=== PATIENT | female | born 1970 | race Caucasian/White ===

== ENCOUNTER 2016-04-05 13:33 | Emergency (ER) | payer OTHER ==
[2016-04-05 14:43] LABS: ABSOLUTE BASOPHIL COUNT 0 /CUMM (0.0-0.2); ABSOLUTE EOSINOPHIL COUNT 0.1 /CUMM (0.0-0.7); ABSOLUTE GRANULOCYTE CT 8.2 /CUMM (1.4-6.5); ABSOLUTE LYMPH COUNT 0.9 /CUMM (1.2-3.4); ABSOLUTE MONOCYTE COUNT 0.3 /CUMM (0.10-0.60); BASOPHIL % 0.2 % (0.0-2.0); EOSINOPHIL % 0.9 % (0-5); GRANULOCYTE % 86.6 % (42.2-75.2); HEMATOCRIT 43.3 % (37-47); MEAN CORPUSCULAR HGB CONC 33.6 G/DL (33.0-37.0); MEAN CORPUSCULAR VOLUME 89.2 FL (81.0-99.0); MEAN PLATELET VOLUME 8.5 FL (7.4-10.4); PLATELET COUNT 241 /CUMM (130-400); RBC DISTRIBUTION WIDTH 14.5 % (11.5-14.5); RED BLOOD CELL CT 4.85 /CUMM (4.20-5.40); WHITE BLOOD CELL COUNT 9.5 /CUMM (4.8-10.8)
--- NOTE | 2016-04-05 15:42 | ED GI/GU/ABDOMINAL COMPLAINT ---
History of Present Illness General Chief Complaint: Abdominal Pain/Flank Pain Stated Complaint: R LOWER ABD PAIN X 4 HOURS Source: patient, old records Exam Limitations: no limitations Vital Signs & Intake/Output Vital Signs & Intake/Output Vital Signs Date Time Temp Pulse Resp B/P Pulse O2 O2 Flow FiO2 Ox Delivery Rate 04/05 1630 98.8 88 18 157/76 96 04/05 1507 98 Room Air 04/05 1355 97.9 87 18 181/130 99 Room Air Allergies Coded Allergies: No Known Allergies (01/17/16) Reconcile Medications Dicyclomine Hydrochloride (Bentyl) 10 MG CAPSULE 1 CAP PO TID PRN PAIN Ondansetron (Zofran Odt) 4 MG TAB.RAPDIS 1 TAB SL TID PRN NAUSEA Oxycodone HCl/Acetaminophen (Percocet 5-325 MG Tablet) 5 MG-325 MG TABLET 1 TAB PO TID PAIN Triage Note: C/O RIGHT SIDE ABDOMINAL PAIN X4 HOURS. +NAUSEA, +VOMITING X3. INCREASED PAIN WITH WALKING. Triage Nurses Notes Reviewed? yes ? n Is pt currently ? No Onset: Abrupt Duration: hour(s): (4), constant Timing: recent history Quality/Severity: mild, moderate, sharpness Severity Numbers: 6 Location: right lower quadrant Radiation: no radiation Activities at Onset: none Prior Abdominal Problems: none No Modifying Factors: none Associated Symptoms: denies HPI: 45-year-old female with history of hypertension cholecystectomy presents complaining of a 4 hour onset right lower quadrant abdominal pain that she awoke him sleep with associated multiple episodes of nausea vomiting and diarrhea. She reports little sick contacts at home with similar symptoms however states that they did not have this abdominal pain. The pain is worse with movement and better at rest she attempted taking ibuprofen without improvement. She denies any black or bloody stools no hematemesis no fever no chills no urinary complaints. Her last menstrual cycle was a few weeks ago normal she denies any vaginal bleeding or discharge Past History Travel History Traveled to [place] past 21 day No Medical History Any Pertinent Medical History? see below for history Cardiovascular: hypertension Surgical History Surgical History: none Psychosocial History What is your primary language Pashto Tobacco Use: Never used ETOH Use: occasional use Illicit Drug Use: denies illicit drug use Family History Hx Contributory? No Review of Systems Review of Systems Constitutional: Reports: see HPI. All Other Systems: Reviewed and Negative Comments Review of systems: See HPI, All other systems negative. Constitutional, no chills no fever, no malaise HEENT: no sore throat no congestion Cardiovascular: No chest pain , no palpitation Skin, no jaundice no rashes, no change in skin Respiratory: No dyspnea no cough no sputum GI: No nausea no vomiting, no diarrhea, no bloating/constipation : No dysuria No hematuria, no frequency, no discharge Muscle skeletal: No joint pain, no back pain, no neck pain, Neurologic: No numbness no headache Psych: No stress Heme/endocrine: No bruising no bleeding Immunology: No lymphadenopathy Physical Exam Physical Exam General Appearance: well developed/nourished, alert, awake Gastrointestinal: soft Comments: Well-developed well-nourished person in no acute distress HEENT: Normal EENT exam; PERRL, EOMI, HEAD is atraumatic. moist mucous membranes. Neck: Supple, normal range of motion Back: Nontender, no CVA tenderness. Full range of motion Cardiovascular: Regular rate and rhythms no murmurs rubs Respiratory: No respiratory distress. Patient speaking in full complete sentences. Breath sounds clear to auscultation bilaterally: NO W/R/R Abdomen: Soft, tender to palpation of the right lower quadrant negative Rovsing' s negative water system operator sign nondistended, no appreciable organomegaly. Normal bowel sounds. No rebound/guarding, Extremity: No edema, full range of motion of extremities, Neuro: Alert oriented x3, motor sensory normal, There were no obvious focal neurologic abnormalities. Skin: No appreciable rash on exposed skin, skin is warm and dry. Psych: Mood and affect is normal, memory and judgment is normal. Core Measures ACS in differential dx? No Severe Sepsis Present: No Septic Shock Present: No Progress Differential Diagnosis: appendicitis, bowel obstruction, colon cancer, ectopic , hepatitis, inflamm bowel dis, intrauterine , kidney stone, ovarian cyst, ovarian torsion, pancreatitis, peptic ulcer, PUD/GERD, perforated viscous, SBO, threatened AB, UTI/pyelo Plan of Care: Orders Procedure Date/time Status Add-on Test (ER Only) 04/05 1540 Active HUMAN BETA HCG SCREEN 04/05 1433 Complete URINALYSIS 04/05 1410 Complete COMPREHENSIVE METABOLIC PANEL 04/05 1410 Complete CBC WITHOUT DIFFERENTIAL 04/05 1410 Complete Current Medications Sig/Erik Start time Last Medication Dose Stop Time Status Admin Morphine Sulfate 2 MG ONCE ONE 04/05 1645 CAN (Morphine) 04/05 1646 Laboratory Tests 04/05/16 1519: Urine Color YEL, Urine Clarity CLEAR, Urine pH 6.0, Ur Specific Blanket >= 1.030 , Urine Protein 30 H, Urine Ketones NEG, Urine Nitrite NEG, Urine Bilirubin NEG , Urine Urobilinogen 0.2, Ur Leukocyte Esterase NEG, Ur Microscopic SEDIMENT EXAMINED, Urine RBC RARE, Urine WBC RARE, Ur Epithelial Cells MOD H, Urine Mucus MOD H, Urine Hemoglobin NEG, Urine Glucose NEG 04/05/16 1433: Anion Gap 15, Estimated GFR > 60, BUN/Creatinine Ratio 28.6 H, Glucose 104 H, Calcium 9.4, Total Bilirubin 0.8, AST 20, ALT 35, Alkaline Phosphatase 100, Total Protein 8.1, Albumin 4.4, Globulin 3.7, Albumin/Globulin Ratio 1.2, Total Beta HCG NEGATIVE, CBC w Diff NO MAN DIFF REQ, RBC 4.85, MCV 89.2, MCH 30.0, RDW 14.5, MPV 8.5, Gran % 86.6 H, Lymphocytes % 9.0 L, Monocytes % 3.3, Eosinophils % 0.9, Basophils % 0.2, Absolute Granulocytes 8.2 H, Absolute Lymphocytes 0.9 L, Absolute Monocytes 0.3, Absolute Eosinophils 0.1, Absolute Basophils 0, PUBS MCHC 33.6 Labs ordered old records reviewed patient medicated Dilaudid 1 mg IV IV fluids CAT scan ordered discussed with her all of her lab results to date. 04/05/2016 5:03:00 PM discussed with the patient leave again all of her lab results CAT scan findings and incidental findings on ct. The patient reports her pain is resolved with the 1 mg of Dilaudid IV fluids are running she is requesting something to drink. Patient is tolerating by mouth challenge discussed the need for bland diet clear liquids advance as tolerated. Prescription for Bentyl Percocet and Zofran were provided advised close follow-up with her primary care tomorrow return anytime sooner if she feels worsening or symptoms or any other concerns. I answer all of her questions. I discussed with the patient at length all of their results, need for close follow up with their primary care physician. This week. I answered all of their questions, they feel comfortable with the plan and follow-up care. I discussed the medications that they will receive with the patient. I gave them signs and symptoms that could indicate an adverse reaction. I have advised them to limit their activities until they can see how they respond to the medication. (IFTIKHAR OWUSU,ALEJANDRO) Diagnostic Imaging: Viewed by Me: CT Scan. Discussed w/RAD: CT Scan. Radiology Impression: PATIENT: ANNEMARIE KEE PRESENT AGE: 45 PATIENT ACCOUNT NO: [id number] : 68 LOCATION: [facility] ORDERING PHYSICIAN: ALEJANDRO OWUSU SERVICE DATE: 04/05/163364 EXAM TYPE: CAT - CT ABD & PELVIS W IV CONTRAST EXAMINATION: CT ABDOMEN AND PELVIS WITH CONTRAST CLINICAL INFORMATION: Right lower quadrant pain with nausea, vomiting and diarrhea. Evaluate for appendicitis. COMPARISON: Abdominal ultrasound 2015 TECHNIQUE: Multidetector volumetric imaging was performed of the abdomen and pelvis before and after the IV administration of 95 mL of Optiray 320 intravenous contrast. Coronal and sagittal reformatted images were provided. DLP : 1634.67 mGy-cm. FINDINGS: LUNG BASES: The visualized lung bases are clear. LIVER, GALLBLADDER, AND BILIARY TREE: The liver is normal in size, shape, and attenuation. There is a 1.8 cm hypodensity within the left hepatic lobe (image 23, series 2) which is indeterminate. It is grossly unchanged in size and compared to the prior ultrasound. No other hepatic lesions are identified. No biliary ductal dilatation is present. The patient is status post cholecystectomy. PANCREAS: Unremarkable. SPLEEN: Unremarkable. ADRENAL GLANDS: Unremarkable. KIDNEYS AND URETERS: The kidneys are normal in size, shape, and attenuation. A subcentimeter hypodensity is noted within the right upper pole, too small to characterize. There is a 6 mm nonobstructing calculus within the right upper pole (image 39, series 2). No ureteral calculi identified. A 1.2 cm hypoattenuating lesion is seen within the anterior left mid to lower pole. This does not demonstrate attenuation values of simple fluid. The lesion is indeterminate but may represent hyperdense cyst. Further evaluation can be obtained with ultrasound. There is a 4 mm nonobstructing calculus within the left upper pole (image 36, series 2). No ureteral calculi are identified. No hydronephrosis or hydroureter. No significant perinephric stranding. BLADDER: Underdistended. GASTROINTESTINAL TRACT: There is no bowel obstruction, free intraperitoneal air or fluid. What appears to be the appendix (image 58, series 602) is within normal limits. No inflammatory changes are identified within the right lower quadrant. Nondilated fluid-filled loops of small bowel are noted throughout the abdomen without associated bowel wall thickening. There is descending and sigmoid colon diverticulosis without CT evidence of acute diverticulitis. ABDOMINAL WALL: No significant hernia is appreciated. LYMPH NODES: No mesenteric, retroperitoneal or pelvic lymphadenopathy. VASCULAR: Nonaneurysmal abdominal aorta. Patent portal and renal veins. PELVIC VISCERA: Uterus is retroverted. Probable small right adnexal cyst measuring 2.7 x 1.5 cm (image 82, series 2). OSSEOUS STRUCTURES: There are no aggressive osseous lesions. Mild degenerative changes are seen within the spine and sacroiliac joints. IMPRESSION: 1. No acute intra-abdominal or pelvic abnormality. 2. Nonobstructing bilateral renal calculi. 3. Diverticulosis without CT evidence of acute diverticulitis. 4. Indeterminate hypodensity within the left hepatic lobe is grossly stable in size compared to the prior ultrasound. The ultrasound imaging suggests that this lesion may represent hemangioma. Confirmation could be obtained with dedicated hepatic mass protocol MRI. 5. Indeterminate left renal hypodensity, likely representing a cyst. Further evaluation can be obtained with renal ultrasound. 6. Other findings as described. DICTATED BY: WILL CASTRO DO DATE/TIME DICTATED:04/05/161626 DEPARTMENT CHAIRPERSON:PIPER DATE/TIME TRANSCRIBED:04/05/161626 CONFIDENTIAL, DO NOT COPY WITHOUT APPROPRIATE AUTHORIZATION. <Electronically signed in Other Vendor System> SIGNED BY: WILL CASTRO DO 04/05/16 1653 Initial ED EKG: none Departure Departure Time of Disposition: 1706 Disposition: HOME OR SELF CARE Condition: Stable Clinical Impression Primary Impression: Abdominal pain Secondary Impressions: Diverticulosis, Kidney stone, Liver hemangioma, Renal cyst Referrals: BRAYDEN MARIA MD (PCP/Family) Additional Instructions: [place] diet clear liquids advance diet as tolerated. Ondansetron for nausea. Bentyl for abdominal pain. Percocet for breakthrough pain. Use caution as this is a narcotic and may make you drowsy no driving or drinking alcohol while taking. Follow-up with her primary care physician tomorrow. Return immediately if he had worsening of your symptoms fever chills or any other concerns. These Prescriptions were sent to your pharmacy Departure Forms: Customer Survey General Discharge Information Prescriptions: Current Visit Scripts Oxycodone HCl/Acetaminophen (Percocet 5-325 MG Tablet) 1 TAB PO TID #10 TAB Dicyclomine Hydrochloride (Bentyl) 1 CAP PO TID PRN PAIN #12 CAP Ondansetron (Zofran Odt) 1 TAB SL TID PRN NAUSEA #10 TAB ED Attending Observation Initial Observation Note: I have seen and personally examined ANNEMARIE KEE on 04/05/16 at 1714. I agree with the current emergency department documentation. The disposition (admission or discharge) is uncertain at this time, she needs a period of observation for the following reason(s): The ED Nurse caring for this patient has been personally informed as to what the patient is being observed for.
[2016-04-05 16:30] VITALS: BP 157/76
--- NOTE | 2016-04-05 16:53 | CT SCAN REPORT ---
EXAMINATION: CT ABDOMEN AND PELVIS WITH CONTRAST CLINICAL INFORMATION: Right lower quadrant pain with nausea, vomiting and diarrhea. Evaluate for appendicitis. COMPARISON: Abdominal ultrasound 07/18/2015 TECHNIQUE: Multidetector volumetric imaging was performed of the abdomen and pelvis before and after the IV administration of 95 mL of Optiray 320 intravenous contrast. Coronal and sagittal reformatted images were provided. DLP: 1634.67 mGy-cm. FINDINGS: LUNG BASES: The visualized lung bases are clear. LIVER, GALLBLADDER, AND BILIARY TREE: The liver is normal in size, shape, and attenuation. There is a 1.8 cm hypodensity within the left hepatic lobe (image 23, series 2) which is indeterminate. It is grossly unchanged in size and compared to the prior ultrasound. No other hepatic lesions are identified. No biliary ductal dilatation is present. The patient is status post cholecystectomy. PANCREAS: Unremarkable. SPLEEN: Unremarkable. ADRENAL GLANDS: Unremarkable. KIDNEYS AND URETERS: The kidneys are normal in size, shape, and attenuation. A subcentimeter hypodensity is noted within the right upper pole, too small to characterize. There is a 6 mm nonobstructing calculus within the right upper pole (image 39, series 2). No ureteral calculi identified. A 1.2 cm hypoattenuating lesion is seen within the anterior left mid to lower pole. This does not demonstrate attenuation values of simple fluid. The lesion is indeterminate but may represent hyperdense cyst. Further evaluation can be obtained with ultrasound. There is a 4 mm nonobstructing calculus within the left upper pole (image 36, series 2). No ureteral calculi are identified. No hydronephrosis or hydroureter. No significant perinephric stranding. BLADDER: Underdistended. GASTROINTESTINAL TRACT: There is no bowel obstruction, free intraperitoneal air or fluid. What appears to be the appendix (image 58, series 602) is within normal limits. No inflammatory changes are identified within the right lower quadrant. Nondilated fluid-filled loops of small bowel are noted throughout the abdomen without associated bowel wall thickening. There is descending and sigmoid colon diverticulosis without CT evidence of acute diverticulitis. ABDOMINAL WALL: No significant hernia is appreciated. LYMPH NODES: No mesenteric, retroperitoneal or pelvic lymphadenopathy. VASCULAR: Nonaneurysmal abdominal aorta. Patent portal and renal veins. PELVIC VISCERA: Uterus is retroverted. Probable small right adnexal cyst measuring 2.7 x 1.5 cm (image 82, series 2). OSSEOUS STRUCTURES: There are no aggressive osseous lesions. Mild degenerative changes are seen within the spine and sacroiliac joints. IMPRESSION: 1. No acute intra-abdominal or pelvic abnormality. 2. Nonobstructing bilateral renal calculi. 3. Diverticulosis without CT evidence of acute diverticulitis. 4. Indeterminate hypodensity within the left hepatic lobe is grossly stable in size compared to the prior ultrasound. The ultrasound imaging suggests that this lesion may represent hemangioma. Confirmation could be obtained with dedicated hepatic mass protocol MRI. 5. Indeterminate left renal hypodensity, likely representing a cyst. Further evaluation can be obtained with renal ultrasound. 6. Other findings as described.
[2016-04-05] MEDS ORDERED: BENTYL10 M1 PO (17:08)
[2016-04-05] MEDS ORDERED: PERCOCET 5-3251 EACH PO (17:08)
[2016-04-05] MEDS ORDERED: ZOFRAN ODT4 M1 SL (17:08)
[2016-05-07] MEDS ORDERED: PROTONIX40 M3 PO (15:59)
== END 2016-04-05 18:30 ==
LOC: ERH 13:33
PROVIDERS: Emergency Medicine
DX: K57.90 Diverticulosis of intestine, part unspecified, without perforation or abscess without bleeding (principal); N20.0 Calculus of kidney; D18.00 Hemangioma unspecified site; N28.1 Cyst of kidney, acquired
CPT/HCPCS: 74177; 81001; 96374; 96375; 96376; J2405

== ENCOUNTER 2016-04-15 05:44 | Emergency (ER) | payer OTHER ==
[~2016-04-15] VITALS: Ht 170.2 cm; Wt 133.8 kg
[~2016-04-15 05:44] MED LIST: BENTYL10 M1 PO; PERCOCET 5-3251 EACH PO; ZOFRAN ODT4 M1 SL
[2016-04-15] MEDS ORDERED: HYDROCHLOROTHIA25 M1 PO (06:10)
[2016-04-15 09:14] LABS: ABSOLUTE BASOPHIL COUNT 0.1 /CUMM (0.0-0.2); ABSOLUTE EOSINOPHIL COUNT 0 /CUMM (0.0-0.7); ABSOLUTE GRANULOCYTE CT 11.2 /CUMM (1.4-6.5); ABSOLUTE LYMPH COUNT 1.7 /CUMM (1.2-3.4); ABSOLUTE MONOCYTE COUNT 0.5 /CUMM (0.10-0.60); BASOPHIL % 0.5 % (0.0-2.0); EOSINOPHIL % 0.2 % (0-5); HEMATOCRIT 42.6 % (37-47); MEAN CORPUSCULAR HGB 30.1 PG (27.0-31.0); MEAN CORPUSCULAR VOLUME 88.6 FL (81.0-99.0); MEAN PLATELET VOLUME 8.7 FL (7.4-10.4); PLATELET COUNT 284 /CUMM (130-400); RBC DISTRIBUTION WIDTH 14.4 % (11.5-14.5); RED BLOOD CELL CT 4.81 /CUMM (4.20-5.40)
[2016-04-15 09:17] LABS: WHITE BLOOD CELL COUNT 13.5 /CUMM (4.8-10.8)
[2016-04-15 11:12] VITALS: BP 116/57
--- NOTE | 2016-04-15 11:32 | ED GI/GU/ABDOMINAL COMPLAINT ---
History of Present Illness General Chief Complaint: Abdominal Pain/Flank Pain Stated Complaint: PT C/O ABD PAIN. N/V/D SEEN HERE LAST WK FOR SAME Source: patient, family, old records Exam Limitations: no limitations Vital Signs & Intake/Output Vital Signs & Intake/Output Vital Signs Date Time Temp Pulse Resp B/P Pulse O2 O2 Flow FiO2 Ox Delivery Rate 04/15 1112 97.6 79 20 116/57 99 Room Air 04/15 0800 97.5 70 20 122/80 99 Room Air 04/15 0611 97.2 66 18 181/91 100 Room Air Allergies Coded Allergies: No Known Allergies (01/17/16) Reconcile Medications Dicyclomine Hydrochloride (Bentyl) 10 MG CAPSULE 1 CAP PO TID PRN PAIN Hydrochlorothiazide 25 MG TABLET 25 MG PO DAILY HIGH BLOOD PRESSURE (Reported ) Hyoscyamine Sulfate (Levsin-Sl) 0.125 MG TAB.SUBL 1-2 TAB SL Q4P PRN abdominal pain Ondansetron (Zofran Odt) 4 MG TAB.RAPDIS 1 TAB SL TID PRN NAUSEA Ondansetron (Zofran Odt) 4 MG TAB.RAPDIS 1 TAB SL TID PRN nausea Oxycodone HCl/Acetaminophen (Percocet 5-325 MG Tablet) 5 MG-325 MG TABLET 1 TAB PO TID PAIN Tramadol HCl (Ultram) 50 MG TABLET 1-2 TAB PO Q6PRN PRN severe pain Triage Note: PT C/O PERIUMBILICAL PAIN THAT RADIATES DOWN, N/V, DIZZINESS AND CHILLS SINCE SATURDAY. PT REPORTS BEING SEEN HERE FOR THE SAME MORE THEN A WEEK AGO. ABDOMEN SOFT AND TENDER UPON PALPATION. Triage Nurses Notes Reviewed? yes LMP (ages 10-50): unknown ? n Is pt currently ? No Onset: 2 days Duration: day(s):, continues in ED, intermittent Timing: recent history Quality/Severity: aching, cramping, severe, vomiting Location: suprapubic Radiation: back Activities at Onset: none Prior Abdominal Problems: similar symptoms Past Sexual History: Unobtainable at this time Modifying Factors: Improves With: rest. Worsens With: eating, palpation. Associated Symptoms: abdominal pain, loss of appetite, nausea/vomiting HPI: 2 days prior to admission patient was exposed to daughter with nausea vomiting diarrhea that she eventually developed accompanied by intermittent sharp moderate to severe suprapubic pain worse with eating palpation. She denies fever chills chest pain cough shortness of breath headache dysuria rash bleeding. Past History Travel History Traveled to [place] past 21 day No Medical History Any Pertinent Medical History? see below for history Neurological: NONE EENT: NONE Cardiovascular: hypertension Respiratory: NONE Gastrointestinal: NONE Hepatic: NONE Renal: NONE Musculoskeletal: NONE Psychiatric: NONE Endocrine: NONE Surgical History Surgical History: none Psychosocial History What is your primary language Latvian Tobacco Use: Never used Family History Hx Contributory? No Review of Systems Review of Systems Constitutional: Reports: see HPI, malaise. EENTM: Reports: no symptoms. Respiratory: Reports: no symptoms. Cardiovascular: Reports: no symptoms. GI: Reports: see HPI, abdominal pain, nausea, vomiting. Genitourinary: Reports: no symptoms. Musculoskeletal: Reports: no symptoms. Skin: Reports: no symptoms. Neurological/Psychological: Reports: no symptoms. Hematologic/Endocrine: Reports: no symptoms. Immunologic/Allergic: Reports: no symptoms. All Other Systems: Reviewed and Negative Physical Exam Physical Exam General Appearance: well developed/nourished, alert, awake, anxious, moderate distress, obese Head: atraumatic, normal appearance Eyes: Bilateral: normal appearance, PERRL, EOMI, normal inspection. Ears, Nose, Throat, Mouth: hearing grossly normal, dry mucous membranes Neck: normal inspection, supple, full range of motion, normal alignment Respiratory: normal breath sounds, chest non-tender, no respiratory distress, quiet respiration, lungs clear Cardiovascular: regular rate/rhythm, normal peripheral pulses, norml femoral pulses equa Peripheral Pulses: 4+ carotid (R), 4+ carotid (L) Gastrointestinal: normal bowel sounds, soft, non-tender, no organomegaly Back: normal inspection, normal range of motion Extremities: normal range of motion, no ligament instability Neurologic/Psych: no motor/sensory deficits, awake, alert, oriented x 3, normal gait, normal mood/affect, 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 No Severe Sepsis Present: No Septic Shock Present: No Progress Differential Diagnosis: appendicitis, biliary colic, diverticulitis, kidney stone, UTI/pyelo Plan of Care: Orders Procedure Date/time Status URINE 04/15 0841 Complete URINALYSIS 01/22 0841 Complete LIPASE 04/15 840 Complete COMPREHENSIVE METABOLIC PANEL 04/15 840 Complete CBC WITHOUT DIFFERENTIAL 04/15 840 Complete Laboratory Tests 04/15/16 0903: Urinalysis HEAVY H, Urine Color YEL, Urine Clarity CLDY H, Urine pH 5.5, Ur Specific [place] >= 1.030, Urine Protein TRACE H, Urine Ketones TRACE H, Urine Nitrite NEG, Urine Bilirubin NEG, Urine Urobilinogen 0.2, Ur Leukocyte Esterase NEG, Ur Microscopic SEDIMENT EXAMINED, Urine RBC RARE, Urine WBC RARE, Ur Epithelial Cells FEW, Urine Hemoglobin MOD H, Urine Glucose NEG, Urine Test NEGATIVE 04/15/16 0852: Anion Gap 13, Estimated GFR > 60, BUN/Creatinine Ratio 35.0 H, Glucose 150 H, Calcium 9.8, Total Bilirubin 0.8, AST 18, ALT 35, Alkaline Phosphatase 121, Total Protein 8.4 H, Albumin 4.6, Globulin 3.8, Albumin/Globulin Ratio 1.2, Lipase 101, CBC w Diff NO MAN DIFF REQ, RBC 4.81, MCV 88.6, MCH 30.1, RDW 14.4, MPV 8.7, Gran % 83.0 H, Lymphocytes % 12.3 L, Monocytes % 4.0, Eosinophils % 0.2, Basophils % 0.5, Absolute Granulocytes 11.2 H, Absolute Lymphocytes 1.7, Absolute Monocytes 0.5, Absolute Eosinophils 0, Absolute Basophils 0.1, PUBS MCHC 34.0 Diagnostic Imaging: Viewed by Me: Ultrasound. Discussed w/RAD: Ultrasound. Radiology Impression: 1. Nonobstructing upper pole left renal calculus, similar to prior CT scan. 2. Mid right renal calcification seen on recent CT scan are not appreciated by ultrasound. 3. Mid left renal low-attenuation mass and upper pole right renal mass seen on CT scan are not appreciated on this ultrasound and remain incompletely characterized. Depending on clinical circumstances, short interval (3-6 months) follow-up scan to document stability of these findings versus further characterization with dedicated renal MRI scan with and without contrast is recommended. 4. Duplicated left renal collecting system. Initial ED EKG: none Departure Departure Time of Disposition: 1313 Disposition: HOME OR SELF CARE Condition: Stable Clinical Impression Primary Impression: Nausea and vomiting in adult Secondary Impressions: Abdominal pain Qualifiers: Abdominal location: lower abdomen, unspecified Qualified Code: R10.30 - Lower abdominal pain, unspecified Referrals: CANDACE SEAMAN,BRAYDEN (PCP/Family) Additional Instructions: Clear liquids in small amounts for 12-24 hours until better Departure Forms: Customer Survey General Discharge Information Prescriptions: Current Visit Scripts Ondansetron (Zofran Odt) 1 TAB SL TID PRN nausea #15 TAB Hyoscyamine Sulfate (Levsin-Sl) 1-2 TAB SL Q4P PRN abdominal pain #30 TAB Tramadol HCl (Ultram) 1-2 TAB PO Q6PRN PRN severe pain #30 TAB
--- NOTE | 2016-04-15 12:24 | ULTRASOUND REPORT ---
EXAMINATION: US RETROPERITONEAL COMPLETE (RENAL) CLINICAL INFORMATION: Nausea and vomiting. Suprapubic and back pain. Presumptive diagnosis of renal colic. COMPARISON: CT scan of the abdomen and pelvis dated 04/05/2016. TECHNIQUE: Real-time imaging of the kidneys and bladder. FINDINGS: RIGHT KIDNEY: 9.0 x 4.9 x 5.1 cm (SAG x AP x TRV). The kidney is normal in size, contour, and echogenicity. The mid right renal calcification and the upper pole right renal low-attenuation mass seen on recent CT scan is not appreciated by ultrasound. Renal cortical thickness is normal. No focal parenchymal lesions. No hydronephrosis. LEFT KIDNEY: 12.6 x 5.5 x 5.3 cm (SAG x AP x TRV). The kidney is asymmetrically larger compared to the right kidney given duplication of the renal collecting system. Normal renal cortical echogenicity. Renal cortical thickness is normal. As seen on the CT scan, there is a 0.5 x 0.3 x 0.5 cm cm echogenic focus in the upper pole of the left kidney, consistent with a small kidney stone. No focal parenchymal lesions. The mid left renal low-attenuation mass seen on CT scan is not appreciated on this ultrasound. No hydronephrosis. BLADDER: Partially distended and unremarkable. IMPRESSION: 1. Nonobstructing upper pole left renal calculus, similar to prior CT scan. 2. Mid right renal calcification seen on recent CT scan are not appreciated by ultrasound. 3. Mid left renal low-attenuation mass and upper pole right renal mass seen on CT scan are not appreciated on this ultrasound and remain incompletely characterized. Depending on clinical circumstances, short interval (3-6 months) follow-up scan to document stability of these findings versus further characterization with dedicated renal MRI scan with and without contrast is recommended. 4. Duplicated left renal collecting system.
[2016-04-15] MEDS ORDERED: ULTRAM50 M1 PO (13:17)
[2016-04-15] MEDS ORDERED: ZOFRAN ODT4 M1 SL (13:17)
[2016-04-15] MEDS ORDERED: LEVSIN-SL0.125 MG SL (13:17)
[2016-05-07] MEDS ORDERED: PROTONIX40 M3 PO (15:59)
== END 2016-04-15 13:29 ==
LOC: ERH 05:44
PROVIDERS: Emergency Medicine
DX: R11.2 Nausea with vomiting, unspecified (principal); R10.30 Lower abdominal pain, unspecified
CPT/HCPCS: 76775; 81001; 81025; 96361; 96372; 96374; 96375; J1885; J2405; J2765

== ENCOUNTER 2016-05-16 03:12 | Inpatient (IN) | payer OTHER ==
[~2016-05-16] VITALS: Ht 170.2 cm; Wt 122.5 kg
[~2016-05-16 03:12] MED LIST changes: +HYDROCHLOROTHIA25 M1 PO; +LEVSIN-SL0.125 MG SL; +PROTONIX40 M3 PO; +ULTRAM50 M1 PO
--- NOTE | 2016-05-16 08:09 | Admission Core Measures ---
Admission Lab Results I reviewed the following labs: Laboratory Tests 05/16 742 Chemistry Total Beta HCG Pending Urines Urine Test Cancelled Admission Meds I reviewed the following Meds: Current Medications Sig/Erik Start time Last Medication Dose Stop Time Status Admin Cefazolin Sodium 3,000 MG ONCE 05/16 NR (Kefzol-Ancef Inj) 05/16 2358 Heparin Sodium 5,000 UNIT ONCE 05/16 NR (Porcine) 05/16 2358 Acute Coronary Syndrome Inclusion Criteria ACS Diagnosis No Inpatient Core Measures LDL Reminder: If No, please order W/I first 24hr of stay Congestive Heart Failure Inclusion Criteria CHF Diagnosis No Cerebrovascular accident Inclusion Criteria CVA/TIA Diagnosis No Inpatient Core Measures Bedside Swallow Eval Reminder: If BSE failed, place ST order Antithrombotic Reminder: Order Antithrombotic Medication by end of day 2 Antithrombotic Reminder: Document Reason Antithrombotic Not ordered by end of day 2 AFIB/Flutter Reminder: If Present, add to problem list AFIB/Flutter Reminder: Order Anticoag Medication for pts with AFIB/Flutter Atherosclerosis Reminder: If Present, add to problem list LDL Reminder: If No, please order W/I first 24hr of stay PT Order Reminder: If No, please order Venous thromboembolism Inpatient Core Measures VTE Risk Factors: Age > 40, Obesity, Surgery VTE Prophylaxis Ordered Inpt Mech & Pharm No Mech VTE prophylaxis d/t No contraindications No VTE Pharm Prophylaxis d/t No contraindications Inclusion Criteria - Per Current guidelines, there needs to be overlap - treatment for the first 5 days of Warfarin therapy. - Parenteral Anticoagulation (IV or SC) needs to be - given along with Warfarin therapy. VTE Diagnosis No VTE Type NONE VTE Confirmed by (Test) NONE Problem List As ranked by this Provider includes Assessment & Plan 1. Gastric bypass status for obesity 2. Morbid obesity 3. GERD (gastroesophageal reflux disease) 4. Hypertension HOME MEDS Home Med List Hydrochlorothiazide 25 MG TABLET 25 MG PO DAILY HIGH BLOOD PRESSURE (Reported ) Pantoprazole Sodium (Protonix) 40 MG TABLET.DR 1 TAB PO DAILY GERD (Reported)
--- NOTE | 2016-05-16 12:17 | Operative Report ---
Operative/Inv Procedure Report Surgery Date: 05/16/16 Name of Procedure: Laparoscopic Gastric Bypass, Laparoscopic Hiatal hernia repair Pre-Operative Diagnosis: Morbid Obesity BMI 45, HTN, GERD, Hiatal Hernia Post-Operative Diagnosis: Same Estimated Blood Loss: less than 50ml Surgeon/Cardiac Cath Tech: LORNE FRANKLIN DO Anesthesia: general endotracheal tube IV Fluids: 1800 cc Drains: 10 Fr RUQ LÁZARO Drain Specimens: None Complications: none Condition: Stable Operative Indication: This is a 45-year-old female who presented to the office for workup for bariatric surgery. After appropriate workup was completed we discussed with the patient the band, the sleeve, and the gastric bypass. The patient chose to undergo a gastric bypass. All risks including but not limited to bleeding, infection, leak, stricture, injury to surrounding bowel/esophagus/stomach/liver/ spleen, marginal ulcer, malabsorption/malnutrition, dumping syndrome, internal hernia/small bowel obstruction, DVT/PE, and mortality of 03/999 patients were discussed in detail. The patient understood everything and decided to proceed. Operative/Procedure Note Note: The patient was brought to the operating room and placed on the table in supine position. Venodyne stockings were placed and adequate general endotracheal anesthesia was obtained. The patient was prepped and draped in standard surgical fashion. Began the procedure by making a 2 cm transverse incision supraumbilically and slightly to the left of the midline. Then using a 12 mm clear Visiport and a 10 mm 0 laparoscope the abdominal cavity was accessed. Great care was taken to go through the anterior rectus sheath, the posterior rectus sheath, and through the peritoneum. Once we entered the peritoneum the abdominal cavity was insufflated to 15 mmHg. Upon initial examination no obvious gross pathology was seen. Accessory trocars were placed, 5 mm in the epigastrium for the Denise liver retractor. The liver retractor was inserted and the liver was retracted anteriorly exposing the hiatus, a hiatal hernia was seen. 5 mm ports were placed in the right and left upper quadrant, 5 mm left lateral port, and a 12 mm right lateral port. Began the procedure by mobilizing the angle of His and the left calvin of the diaphragm. The stomach was retracted towards the feet and the peritoneum was lysed until the left calvin was clearly visualized. A hernia sac was identified and was dissected away from the left calvin exposing the hiatal hernia, there was a sliding component to it. We then brought our attention to the lesser curvature, and at the second vessel will began to accessing the retrogastric space. Was done using Harmonic scalpel maintaining hemostasis. Once the retrogastric space was accessed we began creating our pouch using 60 mm purple staple load 3 and 45 mm load x 1. The pouch was created around an Nancy tube. Once the pouch was completely disconnected from the gastric remnant we examined the staple lines, some bleeding was noted and that was controlled using endoclips. Pars flaccida was then opened to the right calvin and once again the hernia wac was identified and reduced. The esophagus was circumferentially dissected out of the chest until it was in the abdominal cavity for 2-3 cm. The esophagus was retracted anteriorly and the hiatus was closed using 2-0 Ticron suture. At the completion it was adequately closed and there was ample room for the esophagus. We then brought our attention to the small bowel, the omentum was retracted above the transverse colon and the ligament of Treitz was identified. The small bowel was run 50 cm and divided using 60 mm crow staple load. 2 clips were placed on the proximal staple line which was the biliopancreatic limb. That limb was run to the ligament of Treitz to assure that that was the blind limb. Following this the omentum was divided using Harmonic scalpel. After the omentum was divided the small bowel was coming up to the gastric pouch with no tension. At that point an enterotomy was made 5 cm from the prior divided distal staple line, longterm between the mesenteric and antimesenteric part. A gastrotomy was made anterior to the staple line. A side to side gastrojejunostomy was created using 45 mm purple staple load approximately 3-3-1/2 cm in diameter. The Nancy tube was passed through the common enterotomy, and the common enterotomy was closed using 2-0 Vicryl suture in a running fashion double layer. Following this the small bowel was clamped off distal to the anastomosis, and we preformed an air and a methylene blue leak test. No obvious leak was noted. All the methylene blue was suctioned out. The small bowel was then run 120 cm and an enterotomy was made on the antimesenteric side. Another enterotomy was made on the antimesenteric side of the biliopancreatic limb. A side to side functional end end jejunojejunostomy was created using 60 mm crow staple load. The common enterotomy was closed using a 60 mm crow staple load. Some bleeding was noted from the staple line and that was controlled using endoclips as well. The mesenteric defect was closed using 2-0 Tycron suture in a running fashion. At that point we examined both anastomoses no obvious bleeding was noted and both appeared intact. 2-0 Vicryl was placed at the distal angle of the gastrojejunostomy to take some tension off the anastomosis. A 10 Faroese LÁZARO drain was placed through the right upper quadrant incision under the liver and over the spleen. All ports were removed under direct visualization, no obvious bleeding was noted. Skin was closed using 4-0 Monocryl. Steri-Strips and dressings were placed. The patient was successfully extubated and transferred to the recovery room in stable condition. The patient tolerated the procedure well with no complications. Findings: 3 cm sliding hiatal hernia, 120 cm alimentary limb CC: CANDACE SEAMAN,BRAYDEN
--- NOTE | 2016-05-16 14:15 | NUR ---
NSG NOTE: PATIENT ARRIVED AT 1415 VIA BED ACCOMPANIED BY BECKIE RN FROM PACU; PATIENT ALERT/DROWSY/AROUSABLE AT THIS TIME; VSS (SEE INTERVENTION); 2L NC (WILL TITRATE); IST PROVIDED BY THIS RN AND EDUCATED PATIENT; IVF RUNNING PER ORDER; ALPS ON; PATIENT STATES PAIN 3/10; ORIENTED TO ROOM; CALL ALMAGUER IN REACH; WILL CONT TO MONITOR
[2016-05-16 14:27] VITALS: BP 132/60
[2016-05-16 14:30] VITALS: BP 132/60
--- NOTE | 2016-05-16 14:49 | PN- Bariatrics ---
Subjective Subjective: Asking for ice chips. "I feel dry". No nausea. Not yet out of bed. Due to void by 1729. No dizziness. No shortness of breath. Reports incisional discomfort. Objective Vital Signs and I&Os Vital Signs Date Time Temp Pulse Resp B/P Pulse O2 O2 Flow FiO2 Ox Delivery Rate 05/16 1427 97.7 73 16 132/60 96 Nasal 2.0L Cannula Physical Exam: General - alert & oriented x 3. comfortable. no acute distress. Lungs - clear bilaterally. no w/r/r. Cardiac - s1s2. reg. Abdomen - dressings c/d/i. expected incisional tenderness. LÁZARO drain with scant bloody drainage. Extremities - warm bilaterally. no c/c/e. calves soft and nontender b/l. athrombics b/l. Assessment/Plan Assessment/Plan This 45 year old female with hx morbid obesity, htn, gerd, who is POD#0 s/p lap gastric bypass, hiatal hernia repair, JPx1 npo except ice chips until upper gi complete in morning dilaudid / toradol / hycet prn pain control hold hctz. monitor blood pressure due to void later (1729) surya-operative ancefx2 protonix - gi ppx hep sc - dvt ppx lovenox teaching for home oob/ambulation f/u am labs monitor LÁZARO drain will d/w Core Measures/Miscellaneous Venous Thromboembolism VTE Risk Factors: Age > 40, Obesity, Surgery VTE Contraindications: No Contraindications VTE Prophylaxis Ordered Inpt: Mech & Pharm VTE Diagnosis: No VTE Type: NONE VTE Confirmed by (Test): NONE Beta Rhiannon Is Beta Rhiannon a Home Med? No Antibiotics Is Patient on Antibiotics? Yes If Yes: prophylaxis
[2016-05-16] MEDS ORDERED: SIMETHICON40 MG/0.1 PO (15:08)
[2016-05-16] MEDS ORDERED: LOVENOX40 MG/0.1 SC (15:09)
[2016-05-16] MEDS ORDERED: HYDROCODON-ACET15 ML PO (15:09)
--- NOTE | 2016-05-16 15:14 | Patient Discharge Instructions ---
Discharge Instructions General Discharge Information You were seen/treated for: Morbid Obesity BMI 45, HTN, GERD, Hiatal Hernia You had these procedures: Laparoscopic Gastric Bypass, Laparoscopic Hiatal hernia repair Watch for these problems: fever>101.3, increased pain, redness/swelling/drainage No bath, but you may shower: Yes Other wound care: dry guaze dressing change as needed over previous drain site. leave white steri strips in place. Special Instructions: continue lovenox injections daily, as directed Diet Continue normal diet: No Recommended Diet: Bariatric Additional DIET Information: weekly bariatric stage diet advancement as tolerated, as directed Activity Full Activity/No Limits: No Activity Self Limited: Yes Pounds, do NOT lift more than: 10 Additional ACTIVITY Info: no heavy lifting. no strenuous activity. walk frequently. Acute Coronary Syndrome Inclusion Criteria At DC or during hospital stay patient has or had the following: ACS DIAGNOSIS No Discharge Core Measures Meds if any: Prescribed or Continued at Discharge Meds if any: NOT Prescribed or Continued at Discharge Congestive Heart Failure Inclusion Criteria At DC or during hospital stay patient has or had the following: CHF DIAGNOSIS No Discharge Core Measures Meds if any: Prescribed or Continued at Discharge Meds if any: NOT Prescribed or Continued at Discharge Cerebrovascular accident Inclusion Criteria At DC or during hospital stay patient has or had the following: CVA/TIA Diagnosis No Discharge Core Measures Meds if any: Prescribed or Continued at Discharge Meds if any: NOT Prescribed or Continued at Discharge Venous thromboembolism Inclusion Criteria VTE Diagnosis No VTE Type NONE VTE Confirmed by (Test) NONE Discharge Core Measures - Per Current guidelines, there needs to be overlap - treatment for the first 5 days of Warfarin therapy. - If discharged on Warfarin prior to 5 days of - overlap therapy, the patient will need to be - assessed for post discharge needs including - *Post discharge parental anticoagulation - *Warfarin and/or parental anticoagulation education - *Follow up date to check INR post discharge At least 5 days overlap therapy as Inpatient No Meds if any: Prescribed or Continued at Discharge Note: Overlap Therapy is Warfarin and Anticoagulant Meds if any: NOT Prescribed or Continued at Discharge
--- NOTE | 2016-05-16 15:18 | Surg Short-stay <48hrs Dis Sum ---
Visit Information Visit Dates Admission Date: 05/16/16 Discharge Date: 05/18/16 Surgical Short Stay DC Summary Admission Diagnosis: Morbid Obesity BMI 45, HTN, GERD, Hiatal Hernia Final Diagnosis: same Procedure(s): Laparoscopic Gastric Bypass, Laparoscopic Hiatal hernia repair (05/16/16) Summary/Significant Findings: Electively schedule laparoscopic gastric bypass and hiatal hernia on 05/16/16. Routine post-operative course, including upper gi study on post-op day#1 morning to r/o leak. Stage 1 bariatric diet initiated follow review of the upper gi study. LÁZARO drain monitored during hospitalization, and removed prior to her discharge to home. Her hydrochlorothiazide was held post-operatively and her blood pressure monitored. Lovenox teaching done for continued home prophylaxis ( prescription given pre-op). Discharge to home post-op day#2 after LÁZARO drain removed. Condition at Discharge: stable Discharge Disposition: home or self care Discharge instructions provided to patient/family: Yes Post discharge follow-up plan: call to schedule one week follow up visit if not previously scheduled specific discharge instructions given to her at the time of her discharge to home
[2016-05-16 21:22] VITALS: BP 170/80
[2016-05-16 23:50] VITALS: BP 160/64
--- NOTE | 2016-05-17 07:07 | PN- Student ---
GLENROY ASHER 05/17/16 0643: Subjective Subjective: Patient states she did not have a good night. She reports overnight she experienced gas like pain across her lower abdomen in a band like distribution that at its worse is a 9/10. Patient reports she has a low pain tolerance. She further reported having an issue with the IV line and once it was switched she felt the abdominal pain was improved. She reports one episode of vomiting which she said had some blood in it that total might have been about the size of a quarter. She states her pain is well controlled at a 1-2 until just before the 4 hour heriberto at which point it increases up to a 9. She states she does not like the liquid Vicodin so she would prefer to have pain until she is due for Dilauded. Patient also reports she has nausea, but the zofran is relieving it for most of the time. She denies any chest pain, shortness of breath, fever/ chills, headache, bowel movements, dysuria, knee or leg pain. Objective Objective: Vital signs: 23:50 BP: 160/64 Pulse: 69 Resp :18 Temp: 98.7F SpO2: 96 Physical Exam: General: well appearing, in no acute distress. alert and oriented to person place and time. Head: normocephalic, atraumatic Eyes: PERRL, EOMI Cardio: Regular rate and rhythm, clear S1 and S2. No murmurs, rubs or gallops. No JVD. Pulmonary: Cleart to asucultation bilaterally. No rhonchi, wheeze, or rales. Abd: Tympanic to percussion, hypoactive bowel sounds. Tender to palpation at epigastric area and near incision sites. No ecchymosis, erythema or discharge. LÁZARO drain with minimal serosanguinious fluid. Extremities: Full range of motion, non-tender, no edema. Results Results: Laboratory Tests 05/16/16 0743: Total Beta HCG NEGATIVE, Urine Test Cancelled Assessment/Plan Assessment: Pt is a 45 year old female with a history of GERD, hypertension, morbid obeisity , and hiatal hernia who is POD # 1 for a laproscopic gastric bypass and hiatal hernia repair with out a complicated hospital course. Plan: -Continue NPO until GI study is complete. -Pending adequate GI study, initiate step 1 diet. -Continue IV pain meds -Initiate IV toradol for breakthrough pain. -Continue Zofran for nausea. -Encourage out of bed ambulation. -Initiate DVT ppx with lovenox and appropriate training. -Follow up pending am labs. Will discuss the above with PA surgical team. Glenroy OWUSU-S2 NITHIN OWUSU,STACIE 05/17/16 0713: Objective Objective: Abdomen: Softly distended, obese, appropriate incisional tenderness, bowel sounds positive. Port sites are clean, dry, and intact. There is a LÁZARO 1 holding suction with serous sinus drainage in the bulb. Extremities: Bilateral lower extremities are warm without calf tenderness or significant edema. Assessment/Plan Plan: Assessment: 45-year-old female status post laparoscopic gastric bypass with hiatal hernia repair postoperative day #1. The patient is progressing as expected and her nausea is improving. Plan as above, we'll add Toradol when necessary and encouraged patient to ambulate. Advance to a stage I diet if upper GI series is okay.
[2016-05-17 07:55] LABS: ABSOLUTE BASOPHIL COUNT 0 /CUMM (0.0-0.2); ABSOLUTE EOSINOPHIL COUNT 0 /CUMM (0.0-0.7); ABSOLUTE GRANULOCYTE CT 7.6 /CUMM (1.4-6.5); ABSOLUTE MONOCYTE COUNT 0.6 /CUMM (0.10-0.60); BASOPHIL % 0.1 % (0.0-2.0); EOSINOPHIL % 0.1 % (0-5); GRANULOCYTE % 82.5 % (42.2-75.2); MEAN CORPUSCULAR HGB 29.9 PG (27.0-31.0); MEAN CORPUSCULAR HGB CONC 33.5 G/DL (33.0-37.0); MEAN PLATELET VOLUME 9.4 FL (7.4-10.4); PLATELET COUNT 232 /CUMM (130-400); RBC DISTRIBUTION WIDTH 13.6 % (11.5-14.5); RED BLOOD CELL CT 4.27 /CUMM (4.20-5.40); WHITE BLOOD CELL COUNT 9.2 /CUMM (4.8-10.8)
[2016-05-17 08:18] VITALS: BP 162/90
--- NOTE | 2016-05-17 11:48 | RADIOLOGY REPORT ---
EXAMINATION: FLUOROSCOPY UPPER GI WITH GASTROGRAFIN CLINICAL INFORMATION: 1 day status post gastric bypass study. Postoperative evaluation. COMPARISON: The abdomen and pelvis dated 04/05/2016. TECHNIQUE: A limited Gastrografin upper GI study was performed using 30 ml of Gastroview with the patient in the upright and supine position. Multiple spot films were acquired. FINDINGS: The preliminary air pumper view of the abdomen demonstrates a drain and postsurgical max in the epigastric region. Mild gaseous distention of bowel loops is seen. Evaluation of esophageal distensibility and motility is limited, but grossly unremarkable. The GE junction is located below the level of the diaphragm and no GE reflux seen. The remnant gastric pouch is normal with no abnormal distention or contrast leak seen. There is prompt emptying of contrast into the anastamosed small bowel, which is unremarkable in appearance. FLUOROSCOPY TIME: 22 seconds. IMPRESSION: Unremarkable postoperative examination status post gastric bypass surgery. No evidence of contrast leak seen.
[2016-05-17 16:12] VITALS: BP 120/62
[2016-05-17 23:49] VITALS: BP 120/64
--- NOTE | 2016-05-18 06:44 | PN- Student ---
ITZ CUEVA 05/18/16 0634: Subjective Subjective: Patient reports no events overnight but states she had severe pain around 3:30am which was relieved with pain medication at 3:45am. She is concerned that there is blood in her urine but states she is on day 6 of her menses. She reports having belching but otherwise no gas. She denies any chest pain, shortness of breath, nausea, vomiting, flatus, bowel movements, fever/chills, headaches, or pain in her calf areas. Objective Objective: Vitals: BP: 120-64 Pulse: 66 Resp: 20 SpO2: 95 RA Temp: 98.2F Physical Exam: General: Pt well appearing resting comfortably. Alert and oriented to person place and time. Head: Normocephalic, atraumatic. Eyes: PERRL, EOMI. Mouth: Moist pink mucous membranes. Cardiac: Regular rate and rhythm, clear S1 and S2. No murmurs rubs or gallops. Pulmonary: Clear to auscultation bilaterally, no wheezes, rhonchi, or rales. Abdomen: Non-distended, tender to palpation and percussion at the epigastric area. Incisions still dressed with no obvious drainage. No ecchymosis present. No masses palpated. LÁZARO drain mostly full with serosanguinous fluid. Extremities: Bilateral lower extremities full range of motion, no calf tenderness, no edema, and 2+ dorsalis pedis pulses. Results Results: Laboratory Tests 05/17/16 0620: Anion Gap 10, Estimated GFR > 60, BUN/Creatinine Ratio 18.3, Magnesium 2.0, CBC w Diff NO MAN DIFF REQ, RBC 4.27, MCV 89.0, MCH 29.9, RDW 13.6, MPV 9.4, Gran % 82.5 H, Lymphocytes % 11.1 L, Monocytes % 6.2, Eosinophils % 0.1, Basophils % 0.1, Absolute Granulocytes 7.6 H, Absolute Lymphocytes 1.0 L, Absolute Monocytes 0.6, Absolute Eosinophils 0, Absolute Basophils 0, PUBS MCHC 33.5 05/16/16 0743: Total Beta HCG NEGATIVE, Urine Test Cancelled Assessment/Plan Assessment: Pt is a 45 year old female with a history of morbid obesity, hiatal hernia, GERD , and hypertension who is POD#2 for a laproscopic hiatal hernia repair and gastric bypass without a complicated hospital course. Plan: -Continue stage 1 diet -Continue toradol for moderate pain prn -Continue dilauded for severe pain prn -Continue enoxaparin for dvt prophylaxis -Encourage out of bed ambulation -Follow up pending am labs Will discuss above with PA surgical team. Itz Cueva PA-S2 GEOFF ALEXANDRA 05/18/16 0705: Assessment/Plan Plan: AGREE WITH ABOVE PA-S NOTE LÁZARO DRAIN REMOVED D/C IV DILAUDID. TRY DILAUDID PILLS (SHE DID NOT TOLERATE HYCET WELL) LOVENOX TEACHING DONE D/C HOME TODAY WILL D/W
[2016-05-18] MEDS ORDERED: DILAUDID2 M1 PO (07:04)
[2016-05-18 08:24] VITALS: BP 122/80
--- NOTE | 2016-05-18 10:35 | NUR ---
LATE ENTRY: PT HAD A SLIGHTLY BLOODY BM. PT'S VSS. LABS WNL. PT IN NO DISTRESS. ASYMPTOMATIC. SURGICAL PA RAQUEL SANDRA NOTIFIED. TO CONT TO MONITOR. STILL TO BE DISCHARGED. PT EDUCATED. WILL CONT TO MONITOR.
== END 2016-05-18 13:45 | DRG 403 ==
LOC: ENRESERVDT → ENRESERVTM → ENPENDDIS 03:12 → 2NB 03:12 → SDA 03:12 → 2NB 14:13
PROVIDERS: Physician Assistant; ADMIT Surgery
PROC: 0BQR4ZZ (ICD-10-PCS; principal; 2016-05-16)
PROC: 0D164ZA Bypass Stomach to Jejunum, Percutaneous Endoscopic Approach (ICD-10-PCS; principal; 2016-05-16)
PROC: 0BQS4ZZ (ICD-10-PCS; principal; 2016-05-16)
DX: E66.01 Morbid (severe) obesity due to excess calories (principal); Z68.42 Body mass index [BMI] 45.0-49.9, adult; K21.9 Gastro-esophageal reflux disease without esophagitis; K44.9 Diaphragmatic hernia without obstruction or gangrene; I10 Essential (primary) hypertension
CPT/HCPCS: 2NBP; 36415; 74240; 81025; 82436; J0131; J0690; J1100; J1170; J1630; J1644; J1650; J1885; J2405; J2765; J7042

== ENCOUNTER 2016-06-19 13:40 | Emergency (ER) | payer OTHER ==
[~2016-06-19] VITALS: Ht 172.7 cm; Wt 115.7 kg
[~2016-06-19 13:40] MED LIST changes: +DILAUDID2 M1 PO; +HYDROCODON-ACET15 ML PO; +LOVENOX40 MG/0.1 SC; +SIMETHICON40 MG/0.1 PO
--- NOTE | 2016-06-19 14:33 | ED GI/GU/ABDOMINAL COMPLAINT ---
History of Present Illness General Chief Complaint: Nausea, Vomiting, Diarrhea Stated Complaint: N/V ABD PAIN S/P GASTRIC BYPASS 5 WEEKS AGO Source: patient, family, old records Exam Limitations: no limitations Vital Signs & Intake/Output Vital Signs & Intake/Output Vital Signs Date Time Temp Pulse Resp B/P Pulse O2 O2 Flow FiO2 Ox Delivery Rate 06/19 1913 98.7 77 18 150/80 100 Room Air 06/19 1747 97.5 66 16 150/76 100 Room Air 06/19 1555 62 16 150/84 99 Room Air 06/19 1525 97.4 63 16 190/74 99 Room Air 06/19 1346 98.0 76 20 99 Room Air Allergies Coded Allergies: No Known Allergies (01/17/16) Reconcile Medications Hydrochlorothiazide 25 MG TABLET 25 MG PO DAILY HIGH BLOOD PRESSURE (Reported ) NOT GIVEN Hydromorphone HCl (Dilaudid) 2 MG TABLET 1 TAB PO BIDP PRN PAIN Multivitamin (Multi-Day Vitamins) 1 EACH TABLET 1 TAB PO DAILY SUPPLEMENT- BARIATRIC (Reported) Ondansetron (Zofran Odt) 4 MG TAB.RAPDIS 1 TAB SL TID PRN NAUSEA Pantoprazole Sodium (Protonix) 40 MG TABLET.DR 1 TAB PO DAILY GERD (Reported) Triage Note: PT PRESENTS TO ER C/O OF ABDOMINAL PAIN AND N/V X3 DAYS. PT STATES SHE IS 5 WEEKS POST GASTRIC BYPASS. PT STATES SHE ALSO HAS MIDSTERNAL CHEST PAIN AND FEELS SOB. PT VERY ANXIOUS AT TRIAGE AND TEARFUL Triage Nurses Notes Reviewed? yes ? n Is pt currently ? No Onset: Gradual Duration: day(s): (3), constant Timing: recent history Quality/Severity: aching, cramping, moderate, sharpness Severity Numbers: 7 Location: epigastric, generalized abdomen Radiation: epigastric Activities at Onset: none Prior Abdominal Problems: none No Modifying Factors: none Associated Symptoms: denies HPI: 46-year-old female presents emergency room for further evaluation complaining of generalized crampy aching throbbing abdominal pain nonradiating for the past 3 days associated with multiple episodes of nausea and vomiting. Patient states that this morning she was feeling anxious and felt short of breath and was complaining of chest pain. She states the chest pain has since resolved however she intermittently feels short of breath still. No cough fever chills hemoptysis. She is not taken anything for her symptoms. Patient is 5 weeks status post gastric bypass by Dr. Landaverde. She denies any change in her bowel movements are last bowel movement was this morning and normal no black or bloody stools (ALEJANDRO ELLINGTON) Past History Travel History Traveled to [place] past 21 day No Medical History Any Pertinent Medical History? see below for history Neurological: NONE EENT: NONE Cardiovascular: hypertension Respiratory: NONE Gastrointestinal: POST OP N/V Hepatic: NONE Renal: NONE Musculoskeletal: NONE Psychiatric: NONE Endocrine: NONE Cancer(s): NONE History of MRSA: No History of VRE: No History of CDIFF: No Influenza Vaccine: 01/24/16 Surgical History Surgical History: cholecystectomy, GASTRIC BYPASS Psychosocial History Who do you live with Daughter Services at Home None What is your primary language Lao Tobacco Use: Never used Family History Hx Contributory? No (ALEJANDRO ELLINGTON) Review of Systems Review of Systems Constitutional: Reports: see HPI. All Other Systems: Reviewed and Negative Comments Review of systems: See HPI, All other systems negative. Constitutional, no chills no fever, no malaise HEENT:no sore throat no congestion, no ear pain Cardiovascular: No chest pain , no palpitation Skin, no jaundice no rashes, no change in skin Respiratory: dyspnea no cough no sputum GI: nausea no vomiting, no diarrhea, : No dysuria Muscle skeletal: No joint pain, no back pain, no neck pain, Neurologic: No numbness no headache Psych: No stress no anxiety no depression,. Heme/endocrine: No bruising no bleeding no polyuria no polydipsia Immunology: No lymphadenopathy, no splenectomy (ALEJANDRO ELLINGTON) Physical Exam Physical Exam General Appearance: well developed/nourished, no apparent distress, alert, awake Gastrointestinal: soft, epigastric pain Comments: Well-developed well-nourished person in no acute distress HEENT: Normal EENT exam; PERRL, EOMI, HEAD is atraumatic. moist mucous membranes. Neck: Supple, normal range of motion Back: Nontender, no CVA tenderness. Full range of motion Cardiovascular: Regular rate and rhythms no murmurs rubs Respiratory: Chest nontender.There were no bony deformities, no asymmetry. No respiratory distress. Patient speaking in full complete sentences. Breath sounds clear to auscultation bilaterally: NO W/R/R Abdomen: Soft, epigastric tenderness to palpation negative Mosley sign nondistended, no appreciable organomegaly. Normal bowel sounds. No rebound/ guarding, No appreciable enlargement of the abdominal aorta, No ascites. Extremity: No edema, full range of motion of extremities Neuro: Alert oriented x3, motor sensory normal, There were no obvious focal neurologic abnormalities. Skin: No appreciable rash on exposed skin, skin is warm and dry. Psych: Mood and affect is normal, memory and judgment is normal. Core Measures ACS in differential dx? Yes Severe Sepsis Present: No Septic Shock Present: No (IFTIKHAR OWUSU,ALEJANDRO) Progress Differential Diagnosis: biliary colic, bowel obstruction, colon cancer, diverticulitis, gastritis, hepatitis, ischemic bowel, inflamm bowel dis, pancreatitis, PUD/GERD, SBO, pe, ami, pericarditis, influenza, electrolyte abnormaity Plan of Care: Orders Procedure Date/time Status Telemetry/Kiln Fireman 06/19 1508 Active Add-on Test (ER Only) 06/19 1458 Active TROPONIN LEVEL 06/19 1441 Complete PROTHROMBIN TIME 06/19 1441 Complete LIPASE 06/19 1441 Complete HUMAN BETA HCG SCREEN 06/19 1441 Complete COMPREHENSIVE METABOLIC PANEL 06/19 1441 Complete CBC WITHOUT DIFFERENTIAL 06/19 1441 Complete AMYLASE 06/19 1441 Complete EKG 06/19 1349 Active Current Medications Sig/Erik Start time Last Medication Dose Stop Time Status Admin Promethazine HCl 50 MG ONCE ONE 06/19 1600 CAN (Phenergen) 06/19 1601 Laboratory Tests 06/19/16 1459: Anion Gap 22 H, Estimated GFR > 60, BUN/Creatinine Ratio 21.7, Glucose 121 H, Calcium 9.8, Total Bilirubin 0.6, AST 19, ALT 39, Alkaline Phosphatase 91, Troponin I < 0.01, Total Protein 8.1, Albumin 4.4, Globulin 3.7, Albumin/ Globulin Ratio 1.2, Amylase 57, Lipase 198, Total Beta HCG NEGATIVE, PT 12.3, INR 1.17, CBC w Diff NO MAN DIFF REQ, RBC 4.96, MCV 88.6, MCH 29.8, RDW 14.6 H, MPV 10.0, Gran % 83.4 H, Lymphocytes % 12.5 L, Monocytes % 3.6, Eosinophils % 0.1, Basophils % 0.4, Absolute Granulocytes 8.1 H, Absolute Lymphocytes 1.2, Absolute Monocytes 0.3, Absolute Eosinophils 0, Absolute Basophils 0, PUBS MCHC 33.7 Labs ordered old records reviewed patient acute Dilaudid 1 mg IV Zofran 4 IV CAT scans ordered case was discussed with Dr. Morales Repeat evaluation patient is resting comfortably however states that her nausea persists pain has improved. I discussed with patient at length all of her lab results pending CAT scan Repeat evaluation patient reports nausea has persisted the Dilaudid had previously helped with her nausea Phenergan was no improvement 06/19/2016 6:51:24 PM I discussed with the patient at length as well as her family her CAT scan findings need for close follow-up with her bariatric surgeon. Prescriptions provided the patient feels comfortable plan she is tolerating by mouth here. Patient attributed her shortness of breath chest pain earlier to her anxiety she has not been hypoxic nor tachycardic here clinically appears well there is no pain with inspiration PATIENT: ANNEMARIE KEE PRESENT AGE: 46 PATIENT ACCOUNT NO: [id number] : 68 LOCATION: [facility] ORDERING PHYSICIAN: ALEJANDRO OWUSU SERVICE DATE: 06/19/165900 EXAM TYPE: CAT - CT ABD & PELVIS W ORAL & IV CO; CTA CHEST-PULMONARY EMBOLISM EXAMINATION: CT ANGIOGRAM OF THE CHEST WITH AND WITHOUT CONTRAST (CT PULMONARY ANGIOGRAM FOR PE) CT ABDOMEN AND PELVIS WITH CONTRAST CLINICAL INFORMATION: Dyspnea. Recent gastric bypass surgery. COMPARISON: CT abdomen and pelvis dated 04/05/2016 TECHNIQUE: Prior to contrast administration, noncontrast localization images were obtained. Subsequently, multidetector volumetric imaging was performed from the thoracic inlet to below the diaphragms following the administration of 95 mL Optiray 300 intravenous contrast. No contrast reaction reported. Sagittal, coronal, and MIP oblique sagittal reformatted images were obtained on the CT workstation, uploaded to PACS, and reviewed. Total exam dose-length product 1684.02 mGy-cm. FINDINGS: QUALITY OF STUDY/CONTRAST BOLUS: Suboptimal PULMONARY ARTERIES: Suboptimal enhancement of the pulmonary arteries with greater contrast in the pulmonary veins. This limits the evaluation of the lobar and segmental pulmonary arteries. No gross evidence of pulmonary embolism in the main pulmonary artery. THORACIC AORTA: No aneurysm or dissection. LUNG: Subpleural nodular opacity measuring approximately 0.9 cm anterior aspect right middle lobe (coronal image 21 and series 2 image 276). Small subpleural nodules also noted in the right lower lobe measuring approximately 0.6 cm (series 2 image 271). Minor subsegmental atelectasis noted in the right lower lobe adjacent to the major fissure (series 2 image 277). PLEURA: No pleural effusion or pneumothorax. MEDIASTINUM: Normal heart size. No pericardial effusion. No hilar or mediastinal lymphadenopathy. No evidence of septal bowing or right heart strain. CHEST WALL/AXILLA: No axillary or internal mammary lymphadenopathy. LIVER, GALLBLADDER AND BILIARY TREE: Low-attenuation hepatic foci are noted in the left hepatic lobe. Subcapsular hypodensity along the falciform ligament segment 4A left hepatic lobe measuring 2 x 1.8 cm (series 5 image 24) may represent transient hepatic attenuation difference. Additional low-attenuation lesion segment 2 left hepatic lobe (series 5 image 22) measuring 1.6 x 1.5 cm. Hounsfield units are compatible with a solid lesion. This has remained stable over the interval. No additional lesions identified. Status post cholecystectomy. Stable minor prominence of the common bile duct measuring approximately 0.7 cm compatible with postcholecystectomy change. Spleen: Unremarkable. Pancreas: Unremarkable. Adrenal glands: Unremarkable. Kidneys: Stable nonobstructing calculus upper pole right kidney measuring approximately 0.6 cm. Previously seen left upper pole calculus is no longer visualized. Duplicated left renal collecting system. Small cortical scar upper pole right kidney noted again. Stable low-attenuation cortical lesion mid left kidney measuring 1.1 cm. Hounsfield units do not reflect simple cyst. Differential possibility includes complex proteinaceous or hemorrhagic cyst. Since the lesion was not visible on ultrasound, further assessment with nonemergent renal MRI may be of value. GI tract: Postoperative gastric bypass changes. Small amount of orally administered contrast is noted in the mid to distal esophagus, gastric pouch as well as the jejunal loops. No gross evidence of extravasation. No evidence of obstruction. Colonic diverticulosis. No evidence of acute diverticulitis. Lymphovascular structures: Unremarkable. Pelvis: Dominant cysts bilateral ovaries/adnexa compatible with physiologic changes in this age group. No abnormal fluid collection or abscess formation. OSSEOUS STRUCTURES: Degenerative changes. No acute osseous abnormality. IMPRESSION: 1. Suboptimal enhancement of the pulmonary arteries limiting their evaluation of acute pulmonary embolism as detailed. 2. Small subpleural nodular opacities noted in the right middle lobe and right lower lobe. These may represent postinflammatory change. These are not well seen on the prior study. These can be monitored with a follow-up CT chest in 6 months. 3. Stable low-attenuation left hepatic lesion. This was felt to represent a hemangioma on ultrasound. 4. Stable right renal calculus. Stable low-attenuation cortical lesion mid left kidney. Left hepatic lesion and left renal lesions can be further assessed with nonemergent follow-up MRI with gadolinium. 5. Status post gastric bypass. No evidence of contrast extravasation. No abnormal fluid collection. VTE: indeterminate due to suboptimal contrast-enhancement. DICTATED BY: VALE FONSECA MD DATE/TIME DICTATED:06/19/161737 MANAGER ENGINE:PIPER DATE/TIME TRANSCRIBED:06/19/161737 CONFIDENTIAL, DO NOT COPY WITHOUT APPROPRIATE AUTHORIZATION. <Electronically signed in Other Vendor System> SIGNED BY: VALE FONSECA MD 06/19/161824 (ALEJANDRO ELLINGTON) Diagnostic Imaging: Viewed by Me: CT Scan. Discussed w/RAD: CT Scan. Initial ED EKG: normal intervals, normal p-waves, normal QRS complex, normal sinus rhythm (70) Prior EKG: unchanged Rhythm Strip: normal sinus rhythm (ALEJANDRO ELLINGTON) Departure Departure Time of Disposition: 1831 Disposition: HOME OR SELF CARE Condition: Stable Clinical Impression Primary Impression: Abdominal pain Referrals: LORNE FRANKLIN DO, MD,BRAYDEN (PCP/Family) Additional Instructions: follow up with dr franklin tomorrow. dilaudid as discussed for breakthrough pain. zofran for nausea. return at anytime sooner with any concerns. these were sent to [facility] Departure Forms: Customer Survey General Discharge Information Prescriptions: Current Visit Scripts Hydromorphone HCl (Dilaudid) 1 TAB PO BIDP PRN PAIN #8 TAB Ondansetron (Zofran Odt) 1 TAB SL TID PRN NAUSEA #10 TAB (ALEJANDRO ELLINGTON) PA/DRY BOX TENDER Co-Sign Statement Statement: ED Attending supervision documentation- [] I saw and evaluated the patient. I have also reviewed all the pertinent lab results and diagnostic results. I agree with the findings and the plan of care as documented in the PA's/DRY BOX TENDER's documentation. [x] I have reviewed the ED Record and agree with the PA's/DRY BOX TENDER's documentation. [] Additions or exceptions (if any) to the PAs/DRY BOX TENDER's note and plan are summarized below: [] (SERJIO MORALES DO)
[2016-06-19 15:09] LABS: ABSOLUTE EOSINOPHIL COUNT 0 /CUMM (0.0-0.7); ABSOLUTE LYMPH COUNT 1.2 /CUMM (1.2-3.4); ABSOLUTE MONOCYTE COUNT 0.3 /CUMM (0.10-0.60); EOSINOPHIL % 0.1 % (0-5); MEAN CORPUSCULAR VOLUME 88.6 FL (81.0-99.0)
[2016-06-19 15:13] LABS: ABSOLUTE BASOPHIL COUNT 0 /CUMM (0.0-0.2); ABSOLUTE GRANULOCYTE CT 8.1 /CUMM (1.4-6.5); BASOPHIL % 0.4 % (0.0-2.0); HEMATOCRIT 43.9 % (37-47); MEAN CORPUSCULAR HGB 29.8 PG (27.0-31.0); MEAN CORPUSCULAR HGB CONC 33.7 G/DL (33.0-37.0); PLATELET COUNT 254 /CUMM (130-400); RBC DISTRIBUTION WIDTH 14.6 % (11.5-14.5); RED BLOOD CELL CT 4.96 /CUMM (4.20-5.40)
[2016-06-19 15:16] LABS: GRANULOCYTE % 83.4 % (42.2-75.2); PT 12.3 SEC (9.4-12.5); WHITE BLOOD CELL COUNT 9.7 /CUMM (4.8-10.8)
[2016-06-19] MEDS ORDERED: MULTI-DAY VITA1 EACH PO (15:25)
--- NOTE | 2016-06-19 18:25 | CT SCAN REPORT ---
EXAMINATION: CT ANGIOGRAM OF THE CHEST WITH AND WITHOUT CONTRAST (CT PULMONARY ANGIOGRAM FOR PE) CT ABDOMEN AND PELVIS WITH CONTRAST CLINICAL INFORMATION: Dyspnea. Recent gastric bypass surgery. COMPARISON: CT abdomen and pelvis dated 04/05/2016 TECHNIQUE: Prior to contrast administration, noncontrast localization images were obtained. Subsequently, multidetector volumetric imaging was performed from the thoracic inlet to below the diaphragms following the administration of 95 mL Optiray 300 intravenous contrast. No contrast reaction reported. Sagittal, coronal, and MIP oblique sagittal reformatted images were obtained on the CT workstation, uploaded to PACS, and reviewed. Total exam dose-length product 1684.02 mGy-cm. FINDINGS: QUALITY OF STUDY/CONTRAST BOLUS: Suboptimal PULMONARY ARTERIES: Suboptimal enhancement of the pulmonary arteries with greater contrast in the pulmonary veins. This limits the evaluation of the lobar and segmental pulmonary arteries. No gross evidence of pulmonary embolism in the main pulmonary artery. THORACIC AORTA: No aneurysm or dissection. LUNG: Subpleural nodular opacity measuring approximately 0.9 cm anterior aspect right middle lobe (coronal image 21 and series 2 image 276). Small subpleural nodules also noted in the right lower lobe measuring approximately 0.6 cm (series 2 image 271). Minor subsegmental atelectasis noted in the right lower lobe adjacent to the major fissure (series 2 image 277). PLEURA: No pleural effusion or pneumothorax. MEDIASTINUM: Normal heart size. No pericardial effusion. No hilar or mediastinal lymphadenopathy. No evidence of septal bowing or right heart strain. CHEST WALL/AXILLA: No axillary or internal mammary lymphadenopathy. LIVER, GALLBLADDER AND BILIARY TREE: Low-attenuation hepatic foci are noted in the left hepatic lobe. Subcapsular hypodensity along the falciform ligament segment 4A left hepatic lobe measuring 2 x 1.8 cm (series 5 image 24) may represent transient hepatic attenuation difference. Additional low-attenuation lesion segment 2 left hepatic lobe (series 5 image 22) measuring 1.6 x 1.5 cm. Hounsfield units are compatible with a solid lesion. This has remained stable over the interval. No additional lesions identified. Status post cholecystectomy. Stable minor prominence of the common bile duct measuring approximately 0.7 cm compatible with postcholecystectomy change. Spleen: Unremarkable. Pancreas: Unremarkable. Adrenal glands: Unremarkable. Kidneys: Stable nonobstructing calculus upper pole right kidney measuring approximately 0.6 cm. Previously seen left upper pole calculus is no longer visualized. Duplicated left renal collecting system. Small cortical scar upper pole right kidney noted again. Stable low-attenuation cortical lesion mid left kidney measuring 1.1 cm. Hounsfield units do not reflect simple cyst. Differential possibility includes complex proteinaceous or hemorrhagic cyst. Since the lesion was not visible on ultrasound, further assessment with nonemergent renal MRI may be of value. GI tract: Postoperative gastric bypass changes. Small amount of orally administered contrast is noted in the mid to distal esophagus, gastric pouch as well as the jejunal loops. No gross evidence of extravasation. No evidence of obstruction. Colonic diverticulosis. No evidence of acute diverticulitis. Lymphovascular structures: Unremarkable. Pelvis: Dominant cysts bilateral ovaries/adnexa compatible with physiologic changes in this age group. No abnormal fluid collection or abscess formation. OSSEOUS STRUCTURES: Degenerative changes. No acute osseous abnormality. IMPRESSION: 1. Suboptimal enhancement of the pulmonary arteries limiting their evaluation of acute pulmonary embolism as detailed. 2. Small subpleural nodular opacities noted in the right middle lobe and right lower lobe. These may represent postinflammatory change. These are not well seen on the prior study. These can be monitored with a follow-up CT chest in 6 months. 3. Stable low-attenuation left hepatic lesion. This was felt to represent a hemangioma on ultrasound. 4. Stable right renal calculus. Stable low-attenuation cortical lesion mid left kidney. Left hepatic lesion and left renal lesions can be further assessed with nonemergent follow-up MRI with gadolinium. 5. Status post gastric bypass. No evidence of contrast extravasation. No abnormal fluid collection. VTE: indeterminate due to suboptimal contrast-enhancement.
[2016-06-19] MEDS ORDERED: ZOFRAN ODT4 M1 SL (18:36)
[2016-06-19] MEDS ORDERED: DILAUDID2 M1 PO (18:36)
[2016-06-19 19:14] VITALS: BP 150/80
== END 2016-06-19 19:15 ==
LOC: ERH 13:40
PROVIDERS: Physician Assistant Medical
DX: R10.84 Generalized abdominal pain (principal)
CPT/HCPCS: 74177; 93005; 93010; 96374; 96375; 96376; J2405; J2550

== ENCOUNTER 2016-07-24 14:09 | Inpatient (IN) | payer OTHER ==
[~2016-07-24] VITALS: Ht 172.7 cm; Wt 107.0 kg
[~2016-07-24 14:09] MED LIST changes: +MULTI-DAY VITA1 EACH PO
--- NOTE | 2016-07-24 14:17 | NUR ---
PT BROUGHT TO ROOM IN WC. FREQUENT SYNCOPAL EPISODES. LIMP POSTURE. PALE AND DIAPHORETIC. NO APPARENT RESPIRATORY DIFFICULTY. PT ASKING "WHERE ARE WE?"
[2016-07-24 14:32] LABS: ABSOLUTE BASOPHIL COUNT 0 /CUMM (0.0-0.2); ABSOLUTE EOSINOPHIL COUNT 0 /CUMM (0.0-0.7); ABSOLUTE GRANULOCYTE CT 8.6 /CUMM (1.4-6.5); ABSOLUTE LYMPH COUNT 1.4 /CUMM (1.2-3.4); ABSOLUTE MONOCYTE COUNT 0.3 /CUMM (0.10-0.60); BASOPHIL % 0.4 % (0.0-2.0); EOSINOPHIL % 0.2 % (0-5); GRANULOCYTE % 82.6 % (42.2-75.2); HEMATOCRIT 45.1 % (37-47); MEAN CORPUSCULAR HGB 30.2 PG (27.0-31.0); MEAN CORPUSCULAR HGB CONC 33.5 G/DL (33.0-37.0); MEAN CORPUSCULAR VOLUME 90.3 FL (81.0-99.0); MEAN PLATELET VOLUME 10.6 FL (7.4-10.4); PLATELET COUNT 234 /CUMM (130-400); RBC DISTRIBUTION WIDTH 15.6 % (11.5-14.5); WHITE BLOOD CELL COUNT 10.4 /CUMM (4.8-10.8)
--- NOTE | 2016-07-24 14:42 | ED SYNCOPE COMPLAINT ---
History of Present Illness General Chief Complaint: General Adult Stated Complaint: BIBA SYNCOPE Source: patient, family Exam Limitations: no limitations Allergies Coded Allergies: No Known Allergies (01/17/16) Reconcile Medications Ergocalciferol (Vitamin D2) (Vitamin D2) 50,000 UNIT CAPSULE 1 CAP PO QMON SUPPLEMENT (Reported) Multivitamin (Multi-Day Vitamins) 1 EACH TABLET 1 TAB PO DAILY SUPPLEMENT- BARIATRIC (Reported) Triage Note: PT BROUGHT TO ROOM IN . FREQUENT SYNCOPAL EPISODES. LIMP POSTURE. PALE AND DIAPHORETIC. NO APPARENT RESPIRATORY DIFFICULTY. PT ASKING "WHERE ARE WE?" Triage Nurses Notes Reviewed? yes HPI: This patient is a 46-year-old female who presented to the emergency department today for evaluation of multiple syncopal episodes, chest pain, and abdominal pain. Patient reported that she was seen here several weeks ago for the same. She reported that she was told that it was a gastrointestinal bug. She reported that she was feeling fine until this morning when she developed a 9 out of 10 chest pain which is in the center of her chest and nonradiating. She reported that it feels like it is difficult to breathe and difficult to catch her breath. She reported the pain is sharp and constant. She also reported mild abdominal pain. She reported, "constant," episodes of diarrhea today with no blood in the diarrhea. The patient reported diaphoresis and chills. Tactile fevers. The patient has been reported that she has passed out multiple times today and lost consciousness in the car coming here to the emergency department. She reported that this happened last time as well. The patient denied any visual changes, arm pain, vomiting, back pain, or any other associated symptoms. This patient is status post gastric bypass in 2017. (LEX GREEN,PAMELA) Vital Signs & Intake/Output Vital Signs & Intake/Output Vital Signs Date Time Temp Pulse Resp B/P B/P Pulse O2 O2 Flow FiO2 Mean Ox Delivery Rate 07/25 1639 98.6 51 20 142/70 98 Room Air 07/25 0813 98.0 58 20 140/80 97 Room Air 07/24 1955 97.8 96 20 152/86 98 07/24 1906 99.5 68 16 152/80 99 Room Air 07/24 1730 99.2 62 16 162/80 95 Room Air ED Intake and Output 07/25 0000 07/24 1200 Intake Total 1550 Output Total Balance 1550 Intake, IV 1250 Intake, Oral 300 Number 0 Bowel Movements Patient 240 lb Weight Weight Reported by Patient Measurement Method Past History Medical History Any Pertinent Medical History? see below for history Neurological: NONE EENT: NONE Cardiovascular: hypertension Respiratory: NONE Gastrointestinal: POST OP N/V Hepatic: NONE Renal: NONE Musculoskeletal: NONE Psychiatric: NONE Endocrine: NONE Cancer(s): NONE History of MRSA: No History of VRE: No History of CDIFF: No Surgical History Surgical History: cholecystectomy, GASTRIC BYPASS Psychosocial History Who do you live with Daughter Services at Home None What is your primary language P[place] Family History Hx Contributory? No (PAMELA BURNETT PA-C) Review of Systems Review of Systems Constitutional: Reports: see HPI. EENTM: Reports: no symptoms. Respiratory: Reports: see HPI. Cardiovascular: Reports: see HPI. GI: Reports: see HPI. Genitourinary: Reports: no symptoms. Musculoskeletal: Reports: no symptoms. Skin: Reports: no symptoms. Neurological/Psychological: Reports: see HPI. All Other Systems: Reviewed and Negative (PAMELA BURNETT PA-C) Physical Exam Physical Exam Cranial Nerves: normal hearing, normal speech, PERRL Comments: Well-developed well-nourished person in no acute distress HEENT: Normal EENT exam, head normocephalic, moist mucous membranes PERRLA bilaterally Neck: Supple, no lymphadenopathy Back: Normal gait Cardiovascular: Regular rate and rhythm with no murmurs, rubs, or gallops Respiratory: Chest nontender. No respiratory distress. Breath sounds clear to auscultation bilaterally with no wheezes, rales, or rhonchi Abdomen: Mild epigastric tenderness to palpation with no rebound or guarding. Soft and nondistended. No organomegaly. No peritoneal signs Extremity: Normal and equal pulses. Neuro: Alert oriented x3, cranial nerves II through XII grossly intact. Skin: No appreciable rash on exposed skin, skin is warm and dry. Psych: Mood and affect is normal Core Measures ACS in differential dx? Yes CVA/TIA Diagnosis: No Severe Sepsis Present: No Septic Shock Present: No (PAMELA BURNETT PA-C) Progress Differential Diagnosis: AMI, aortic dissection, aortic valve, drug induced syncope, hyperventilation, orthostatic syncope, other valvular disease, pacemaker malfunction, pericardial tamponade, pulmonary embolus, seizure, sick sinus syndrome, subarachnoid hem., TIA/CVA, vasodepressor syncope, ventricular tach/fib, surgical anastomosis leak Diagnostic Imaging: Viewed by Me: Radiology Read, CT Scan. Discussed w/RAD: Radiology Read, CT Scan. Radiology Impression: PATIENT: ANNEMARIE KEE PRESENT AGE: 46 PATIENT ACCOUNT NO: [id number] : 66 LOCATION: [facility] ORDERING PHYSICIAN: PAMELA BURNETT PA-C SERVICE DATE: 07/24/16 EXAM TYPE: CAT - CT ABD & PELVIS W ORAL & IV CO EXAMINATION: CT ABDOMEN AND PELVIS WITH CONTRAST CLINICAL INFORMATION: Abdominal pain. Nausea. Bariatric surgery 1 year ago. COMPARISON: CT scan abdomen pelvis 04/05/2016, 06/19/2016 . Ultrasound abdomen 07/18/2015 TECHNIQUE: Multidetector volumetric imaging was performed of the abdomen and pelvis after the IV administration of 95 mL of Optiray 320 intravenous contrast. One cup of barium was administered orally just prior to the study. Sagittal and coronal reformatted images were obtained on the technologist's workstation. DLP: 1016.17 mGy-cm FINDINGS: LUNG BASES: The visualized lung bases are unremarkable. LIVER, GALLBLADDER, AND BILIARY TREE: Stable focal 2 cm hypodensity left lobe of liver. This is an echogenic lesion on the ultrasound study of 07/19/2015. Focal fatty change at the falciform ligament the left lobe of liver is stable. No intrahepatic bile duct dilatation. Status post cholecystectomy. Extrahepatic CBD measures 1 cm. No calcified stone in the bile ducts. PANCREAS: Unremarkable. SPLEEN: Unremarkable. ADRENAL GLANDS: Unremarkable. KIDNEYS AND URETERS: There is a nonobstructive 3 mm stone in the upper pole the right kidney. No stone in left kidney. There is no ureteral calculus and no hydronephrosis. Small cortical cyst midpole of the left kidney. BLADDER: Unremarkable. GASTROINTESTINAL TRACT: Status post gastric bypass. Contrast passes through the gastric pouch into small bowel without obstruction. Contrast passes through the small bowel anastomosis in left upper quadrant without obstruction. There is mild diverticulosis of the left colon and sigmoid. At the distal descending colon there is subtle pericolonic edema related to the diverticula consistent with diverticulitis, axial image 57 (2). There is no perforation or abscess. There is no obstruction. The appendix is normal. The small bowel loops are normal. ABDOMINAL WALL: No significant hernia is appreciated. LYMPH NODES: Normal. VASCULAR: Unremarkable. PELVIC VISCERA: Uterus is retroverted. There is a 2.4 cm hypodensity right adnexa, dominant follicle/ cyst No fluid in the cul-de-sac. OSSEOUS STRUCTURES: Multilevel degenerative spondylosis of the spine. 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 IMPRESSION: 1. Small focus of diverticulitis involving the distal descending colon. 2. Status post gastric bypass. 3. Status post cholecystectomy. 4. Nonobstructive 3 mm stone upper pole of the right kidney. DICTATED BY: CAMILA NGUYEN MD DATE/TIME DICTATED:07/24/161612 SLOT FLOOR SUPERVISOR:PIPER DATE/TIME TRANSCRIBED:07/24/161612 CONFIDENTIAL, DO NOT COPY WITHOUT APPROPRIATE AUTHORIZATION. <Electronically signed in Other Vendor System> SIGNED BY: CAMILA NGUYEN MD 07/24/16 1632 CXR Impression: PATIENT: ANNEMARIE KEE PRESENT AGE: 46 PATIENT ACCOUNT NO: [id number] : 66 LOCATION: [facility] ORDERING PHYSICIAN: PAMELA BURNETT PA-C SERVICE DATE: 07/24/16 EXAM TYPE: RAD - XRY-CHEST XRAY, PA AND LATERAL EXAMINATION: XR CHEST CLINICAL INFORMATION: Chest pain COMPARISON: CTA chest from 06/19/2016 TECHNIQUE: 2 views of the chest were obtained. FINDINGS: The cardiomediastinal silhouette is normal. The lungs appear clear. No consolidation, pulmonary edema, pleural effusion, or pneumothorax. There is stable mild elevation of the right hemidiaphragm. There are mild degenerative changes of the spine. No evidence of acute osseous abnormality. IMPRESSION: No acute abnormality. DICTATED BY: SHELBY SALCIDO MD DATE/TIME DICTATED:07/24/161627 SLOT FLOOR SUPERVISOR:PIPER DATE/TIME TRANSCRIBED:1627 CONFIDENTIAL, DO NOT COPY WITHOUT APPROPRIATE AUTHORIZATION. < Electronically signed in Other Vendor System> SIGNED BY: SHELBY SALCIDO MD 07/24/161632 Initial ED EKG: normal axis, normal intervals, normal sinus rhythm, no ST T wave changes, 56 bpm (LEX GREEN,PAMELA) Plan of Care: Orders Procedure Date/time Status Bariatric Diet - Stage 5 07/26 B Active BASIC ELECTROLYTES PLUS BUN&CR 07/26 0600 Active Clear Liquid Diet 07/25 L Complete Regular Diet 07/25 B Complete PARTIAL THROMBOPLASTIN TIME 07/25 1200 Complete CULTURE,STOOL 07/25 1122 Active Change service to 07/25 0750 Active Heparin Drip- ACS 07/25 0628 Active Weight 07/25 0608 Active TROPONIN LEVEL 07/25 0600 Complete BASIC ELECTROLYTES PLUS BUN&CR 07/25 0600 Complete EKG 07/25 0600 Active TROPONIN LEVEL 07/25 0000 Complete EKG 07/25 0000 Active MISSING MEDICATION FORM 07/25 UNK Active EKG 07/25 UNK Active Regular Diet 07/24 D Complete URINE DRUGS OF ABUSE 07/24 1953 Complete Teach/Educate 07/25 1919 Active Pain Treatment and Response 07/25 1919 Active Nutritional Intake, Monitor 07/25 1919 Active Isolation 07/25 1919 Active Patient Care Conference 07/24 192 Active BLOOD CULTURE 07/24 1851 Active CULTURE,URINE 07/24 1750 Active URINALYSIS 07/24 1750 Complete OXYGEN SETUP (GEN) 07/24 1748 Active Saline Lock 07/24 1748 Active Admit to inpatient 07/24 1748 Active Activity/Ambulation 07/24 1748 Active Pathway - chart 07/24 1745 Active Pathway - chart 07/24 1743 Active House Staff 07/24 1743 Active Code Status 07/24 1743 Active Patient Data 07/24 1707 Active Intake & Output 07/24 1552 Active FingerStick- Glucose 07/24 1426 Active VTE Mechanical Prophylaxis 07/24 UNK Active Vital Signs 07/24 UNK Active Current Medications Sig/Erik Start time Last Medication Dose Stop Time Status Admin Aspirin 81 MG DAILY 07/26 1000 CAN (Aspirin) Omeprazole 40 MG DAILY AC 07/26 0700 CAN (Prilosec) Omeprazole 40 MG DAILY AC 07/26 0700 AC (Prilosec) Clopidogrel Bisulfate 75 MG DAILY 07/25 1215 AC 07/25 (Plavix) 1326 Aspirin 81 MG DAILY 07/25 1000 CAN (Aspirin) Clopidogrel Bisulfate 75 MG DAILY 07/25 1000 CAN (Plavix) Multivitamins 1 TAB DAILY 07/25 1000 AC 07/25 Therapeutic 1009 (Theragran-M Vitamins Tabs) Hydromorphone HCl 0.6 MG Q4P PRN 07/24 1900 AC 07/25 (Dilaudid) 1326 Oxycodone/ 1 TAB Q6P PRN 07/24 1900 AC Acetaminophen (Percocet) Ampicillin Sodium/ 3,000 MG Q6 07/24 1833 AC 07/25 Sulbactam Sodium 1252 (Unasyn) Sodium Chloride 100 ML (Normal Saline 0.9%) Acetaminophen 650 MG Q6P PRN 07/24 1745 AC (Tylenol) Ondansetron HCl 4 MG Q6P PRN 07/24 1745 AC (Zofran) Laboratory Tests 07/25/16 1150: APTT 53 H 07/25/16 1013: Urinalysis LIGHT H, Urine Color YEL, Urine Clarity HAZY H, Urine pH 6.5, Ur Specific [place] 1.025, Urine Protein TRACE H, Urine Ketones 15 H, Urine Nitrite NEG, Urine Bilirubin NEG@ICTO, Urine Urobilinogen 0.2, Ur Leukocyte Esterase NEG, Ur Microscopic SEDIMENT EXAMINED, Urine RBC 15-25 H, Urine WBC 10 -15 H, Ur Epithelial Cells MANY H, Urine Bacteria MANY H, Urine Hemoglobin LARGE H, Urine Glucose NEG 07/25/16 0700: Anion Gap 11, Estimated GFR > 60, BUN/Creatinine Ratio 20.0, Troponin I 0.22 *H 07/25/16 0010: Troponin I 0.40 *H 07/24/16 1830: Troponin I 0.19 *H Microbiology 07/25 1122 STOOL: Stool Culture - COLB 07/25 1013 URINE ROUT: Urine Culture - RECD 07/24 2049 BLOOD: Blood Culture - RES 07/25 2039 BLOOD: Blood Culture - RES Departure Departure Disposition: STILL A PATIENT Condition: Stable Clinical Impression Primary Impression: Diverticulitis Qualifiers: Diverticulitis site: unspecified part of intestinal tract Diverticulitis bleeding: without bleeding Diverticulitis complication: without perforation or abscess Qualified Code: K57.92 - Diverticulitis of intestine, part unspecified, without perforation or abscess without bleeding Secondary Impressions: Syncope Qualifiers: Syncope type: unspecified Qualified Code: R55 - Syncope and collapse Referrals: BRAYDEN MARIA MD (PCP/Family) Departure Forms: Customer Survey General Discharge Information Admission Note Spoke With: CHRISTOPHER SANTOS MD Documentation of Exam: Documentation of any treatments & extenuating circumstances including Concerns Regarding Discharge (functional status, medication knowledge or non-compliance, living conditions, etc.) that warrant an admission rather than observation: [ This patient is a 46-year-old female who presented to the emergency department today for evaluation of abdominal pain, chest pain, and syncope. Diverticulitis seen on CT scan of the abdomen and pelvis. Troponin 0.08. On arrival this patient was tachycardic. Elevated d-dimer. This patient will need to be admitted to the hospital for IV antibiotics, VQ scan to rule out pulmonary embolism, GI consultation, serial troponin levels, serial EKGs, trend labs, IV fluids, IV antiemetics, and close monitoring. Premature discharge could prove medically harmful. This patient is a poor candidate for outpatient treatment.] (LEX GREEN,PAMELA) PA/CRITICAL CARE TECHNICIAN Co-Sign Statement Statement: ED Attending supervision documentation- x I saw and evaluated the patient. I have also reviewed all the pertinent lab results and diagnostic results. I agree with the findings and the plan of care as documented in the PA's/CRITICAL CARE TECHNICIAN's documentation. [] I have reviewed the ED Record and agree with the PA's/CRITICAL CARE TECHNICIAN's documentation. [] Additions or exceptions (if any) to the PAs/CRITICAL CARE TECHNICIAN's note and plan are summarized below: [] (LAM SEAMAN,HEATHER)
--- NOTE | 2016-07-24 15:08 | NUR ---
PT REMAINS WITH DIETARY COOK AT BEDSIDE. BP STABLE SINCE NITRO SL. PT ALERT WITH NO NEW COMPLAINT.
[2016-07-24 15:43] LABS: PTT 32 SEC (25-37)
--- NOTE | 2016-07-24 15:52 | NUR ---
PT TO CAT SCAN ON STRETCHER
--- NOTE | 2016-07-24 16:20 | NUR ---
PT RETURNED FROM CT SCAN. ABDOMINAL PAIN AND NAUSEA CONTINUE. REGLAN GIVEN PER ORDER. PT ASSISTED TO COMMODE AT BEDSIDE. NO DIZZINESS, SOB OR INCREASED NAUSEA
[2016-07-24] MEDS ORDERED: VITAMIN D250000 UNIT PO (16:25)
--- NOTE | 2016-07-24 16:32 | CT SCAN REPORT ---
EXAMINATION: CT ABDOMEN AND PELVIS WITH CONTRAST CLINICAL INFORMATION: Abdominal pain. Nausea. Bariatric surgery 1 year ago. COMPARISON: CT scan abdomen pelvis 04/05/2016, 06/19/2016 . Ultrasound abdomen 07/18/2015 TECHNIQUE: Multidetector volumetric imaging was performed of the abdomen and pelvis after the IV administration of 95 mL of Optiray 320 intravenous contrast. One cup of barium was administered orally just prior to the study. Sagittal and coronal reformatted images were obtained on the technologist's workstation. DLP: 1016.17 mGy-cm FINDINGS: LUNG BASES: The visualized lung bases are unremarkable. LIVER, GALLBLADDER, AND BILIARY TREE: Stable focal 2 cm hypodensity left lobe of liver. This is an echogenic lesion on the ultrasound study of 07/19/2015. Focal fatty change at the falciform ligament the left lobe of liver is stable. No intrahepatic bile duct dilatation. Status post cholecystectomy. Extrahepatic CBD measures 1 cm. No calcified stone in the bile ducts. PANCREAS: Unremarkable. SPLEEN: Unremarkable. ADRENAL GLANDS: Unremarkable. KIDNEYS AND URETERS: There is a nonobstructive 3 mm stone in the upper pole the right kidney. No stone in left kidney. There is no ureteral calculus and no hydronephrosis. Small cortical cyst midpole of the left kidney. BLADDER: Unremarkable. GASTROINTESTINAL TRACT: Status post gastric bypass. Contrast passes through the gastric pouch into small bowel without obstruction. Contrast passes through the small bowel anastomosis in left upper quadrant without obstruction. There is mild diverticulosis of the left colon and sigmoid. At the distal descending colon there is subtle pericolonic edema related to the diverticula consistent with diverticulitis, axial image 57 (2). There is no perforation or abscess. There is no obstruction. The appendix is normal. The small bowel loops are normal. ABDOMINAL WALL: No significant hernia is appreciated. LYMPH NODES: Normal. VASCULAR: Unremarkable. PELVIC VISCERA: Uterus is retroverted. There is a 2.4 cm hypodensity right adnexa, dominant follicle/cyst No fluid in the cul-de-sac. OSSEOUS STRUCTURES: Multilevel degenerative spondylosis of the spine. 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 IMPRESSION: 1. Small focus of diverticulitis involving the distal descending colon. 2. Status post gastric bypass. 3. Status post cholecystectomy. 4. Nonobstructive 3 mm stone upper pole of the right kidney.
--- NOTE | 2016-07-24 16:33 | RADIOLOGY REPORT ---
EXAMINATION: XR CHEST CLINICAL INFORMATION: Chest pain COMPARISON: CTA chest from 06/19/2016 TECHNIQUE: 2 views of the chest were obtained. FINDINGS: The cardiomediastinal silhouette is normal. The lungs appear clear. No consolidation, pulmonary edema, pleural effusion, or pneumothorax. There is stable mild elevation of the right hemidiaphragm. There are mild degenerative changes of the spine. No evidence of acute osseous abnormality. IMPRESSION: No acute abnormality.
--- NOTE | 2016-07-24 18:13 | History & Physical ---
TRINI ORTIZ 07/24/161811: General Information and HPI MD Statement: I have seen and personally examined ANNEMARIE KEE and documented this H&P. The patient is a 46 year old F who presented with a patient stated chief complaint of presyncope Source of Information: patient, old records History of Present Illness: Ms Kee is a 46-year-old woman who was known to be in her usual state of health until 1 day ago. She has a past medical history of hypertension, obesity ( gastric bypass surgery recently). She came to the ER for evaluation of near loss of consciousness 1 day. As per the patient, she felt normal when she woke up this a.m., and experienced nausea a few hours after. Reports several episodes of vomiting 20 times, nonbilious, nonbloody, frothy. Also reported several episodes of diarrhea associated with abdominal pain. Pain 6/10, located around the umbilicus, which radiated into the epigastric region. No fever, cough, change in by mouth intake , history of food contamination, foreign travel. No shortness of breath, chest pain, palpitations, neurological weakness, loss of bladder or bowel function. Reported similar symptoms 3 weeks ago, which subsided without any medical intervention. Has seen the bariatric surgeon a week ago, and was reported to have normal examination. Also has been following up with Dr. Maria's office for abnormal thyroid function test. Allergies/Medications Allergies: Coded Allergies: No Known Allergies (01/17/16) Home Med list Ergocalciferol (Vitamin D2) (Vitamin D2) 50,000 UNIT CAPSULE 1 CAP PO QMON SUPPLEMENT (Reported) Multivitamin (Multi-Day Vitamins) 1 EACH TABLET 1 TAB PO DAILY SUPPLEMENT- BARIATRIC (Reported) Compliance With Home Meds: GOOD Past History Travel History Traveled to [place] past 21 day No Medical History Neurological: NONE EENT: NONE Cardiovascular: hypertension Respiratory: NONE Gastrointestinal: POST OP N/V Hepatic: NONE Renal: NONE Musculoskeletal: NONE Psychiatric: NONE Endocrine: NONE Cancer(s): NONE History of MRSA: No History of VRE: No History of CDIFF: No Surgical History Surgical History: cholecystectomy, GASTRIC BYPASS Past Family/Social History Family History Relations & Conditions if any Relation not specified for: *No pertinent family history Psychosocial History Services at Home: None Smoking Status: Never Smoked ETOH Use: occasional use Illicit Drug Use: denies illicit drug use Functional Ability ADLs Independent: dressing, eating, toileting, bathing. Ambulation: independent IADLs Independent: shopping, housework, finances, food prep, telephone, transportation , medication admin. Review of Systems Review of Systems Constitutional: Denies: chills, fever. EENTM: Denies: blurred vision, double vision. Cardiovascular: Denies: chest pain, edema, orthopena, palpitations. Respiratory: Denies: cough, orthopnea, short of breath, sputum production. GI: Reports: abdominal pain, diarrhea, nausea. Denies: distention, melena, bloody stool, changes in stool. Genitourinary: Denies: dysuria, hematuria. Musculoskeletal: Denies: back pain, joint pain. Skin: Denies: change in skin color, jaundice. Neurological/Psychological: Denies: depressed, headache. Hematologic/Endocrine: Denies: bleeding. Immunologic/Allergic: Denies: lymphadenopathy. Exam & Diagnostic Data Last 24 Hrs of Vital Signs/I&O Vital Signs Date Time Temp Pulse Resp B/P B/P Pulse O2 O2 Flow FiO2 Mean Ox Delivery Rate 07/24 1954 97.8 96 20 152/86 98 05/ 1906 99.5 68 16 152/80 99 Room Air 07/24 1730 99.2 62 16 162/80 95 Room Air 07/24 1620 57 18 196/79 Room Air 07/24 1506 66 16 145/68 05 1445 100 Room Air 07/24 1410 98.7 58 20 175/85 100 Room Air Intake & Output 07/24 1600 02 0800 05 0000 Intake Total 1000 Output Total Balance 1000 Intake, IV 1000 Patient 240 lb Weight Physical Exam General Appearance Alert, Oriented X3, Cooperative, No Acute Distress, Mild Distress Skin No Rashes, No Breakdown Skin Temp/Moisture Exam: Warm/Dry Sepsis Skin Exam (color): Normal for Ethnicity HEENT Atraumatic, PERRLA, EOMI Neck Supple, No JVD, No thryomegaly Lymphatic Axillary nl, Cervical nl Cardiovascular Regular Rate, Normal S1, Normal S2, No Murmurs Lungs Normal Air Movement Abdomen Normal Bowel Sounds, Soft, No Hepatospenomegaly (epigastric tenderness) Neurological Normal Speech, Strength at 5/5 X4 Ext, Normal Tone, Sensation Intact, Cranial Nerves 3-12 NL, Reflexes 2+ Extremities No Cyanosis, No Edema, Normal Pulses, No Tenderness/Swelling Vascular Pulses Symmetrical Sepsis Peripheral Pulse Location: Dorsalis Pedis Sepsis Peripheral Pulse Exam: Normal Last 24 Hrs of Labs/[place]: Laboratory Tests 07/24/16 1830: Troponin I 0.19 *H 07/24/16 1422: Anion Gap 17 H, Estimated GFR > 60, BUN/Creatinine Ratio 25.0, Glucose 137 H, Lactic Acid 1.8, Calcium 9.5, Magnesium 1.8, Total Bilirubin 0.7, Direct Bilirubin 0.4, AST 18, ALT 35, Alkaline Phosphatase 89, Troponin I 0.08, Total Protein 7.8, Albumin 4.6, Globulin 3.2, Albumin/Globulin Ratio 1.4, Amylase 47, Lipase 103, Total Beta HCG NEGATIVE, CBC w Diff NO MAN DIFF REQ, RBC 5.00, MCV 90.3, MCH 30.2, RDW 15.6 H, MPV 10.6 H, Gran % 82.6 H, Lymphocytes % 13.6 L, Monocytes % 3.2, Eosinophils % 0.2, Basophils % 0.4, Absolute Granulocytes 8.6 H, Absolute Lymphocytes 1.4, Absolute Monocytes 0.3, Absolute Eosinophils 0, Absolute Basophils 0, PUBS MCHC 33.5 07/24/16 1421: PT 11.0, INR 1.05, APTT 32, D-Dimer 615 H Microbiology 07/24 2049 BLOOD: Blood Culture - RECD 07/25 2039 BLOOD: Blood Culture - RECD 07/24 1750 URINE ROUT: Urine Culture - ORD Assessment/Plan Assessment: She is a younger woman with a past history of obesity, gastric bypass surgery, hypertension is being evaluated for several episodes of vomiting and diarrhea. At the time of admission, vitals 98.7, respiration 20, pulse rate 58, blood pressure 175/85 (improved later ), pulse ox 100% on room air. Findings indicated WBC 10.4, hemoglobin 15.1, platelets 234, normal electrolytes-sodium 140, potassium 3.8, anion gap 17, bicarbonate 17, BUN 15. Creatinine 0.6, lactic acid 1.8, d-dimer 615, EKG revealed normal sinus rhythm, heart rate 51, slightly elevated T waves. Radiological findings-chest x-ray negative for any acute process. CT abdomen and pelvis with oral and IV contrast revealed small focus of diverticulitis involving the distal descending colon. Also was found a nonobstructing 3 mm stone in the upper pole of the right kidney (chronic as per the patient). Below is the problem list and plan: #1 nausea, vomiting, diarrhea-likely, common etiology is viral gastroenteritis. Since the patient underwent gastric bypass, acute changes in Microbiology data could possibly cause diarrhea. Metabolic abnormalities resulting from vomiting and diarrhea are being corrected. Incidental finding of diverticulitis, could also cause the symptoms. Currently started on broad antibiotic spectrum-Unasyn. May discontinue after discussing with the sap bpc developer. #2 hypertension- Currently off medications. #3 presyncope-monitor the patient for at least 24 hours on telemetry. Monitor for arrhythmias, heart block. May benefit from an echocardiogram at this time. Check orthostatic vitals. Also check TSH, free T4. #4 DVT prophylaxis-pharmacological. As Ranked By This Provider Problem List: 1. Syncope Qualifiers Syncope type: unspecified Qualified Code: R55 - Syncope and collapse 2. Diverticulitis Qualifiers Diverticulitis site: unspecified part of intestinal tract Diverticulitis bleeding: without bleeding Diverticulitis complication: without perforation or abscess Qualified Code: K57.92 - Diverticulitis of intestine, part unspecified, without perforation or abscess without bleeding 3. Hypertension 4. GERD (gastroesophageal reflux disease) Core Measures/Miscellaneous Acute Coronary Syndrome ACS Diagnosis: No Cerebrovascular Accident CVA/TIA Diagnosis: No Congestive Heart Failure CHF Diagnosis: No Venous Thromboembolism VTE Risk Factors: Acute medical illness, Age > 40 No [facility] VTE prophylaxis d/t: No contraindications No VTE Pharm Prophylaxis d/t: No contraindications VTE Diagnosis: No VTE Type: NONE VTE Confirmed by (Test): NONE Severe Sepsis Severe Sepsis Present: No Septic Shock Septic Shock Present: No Miscellaneous Documentation Attending Case Discussed With: CHRISTOPHER SANTOS MD Primary Care Physician: BRAYDEN MARIA MD Patient sees these Specialists Dr. Landaverde Level of Patient Care: Telemetry RHONA CHOW MD 07/24/16 4630: General Information and [facility] Statement: I have seen and personally examined ANNEMARIE KEE and documented this H&P. The patient is a 46 year old F who presented with a patient stated chief complaint of []. Resident Review Statement Resident Statement: examined this patient, discussed with corporate communications intern, agreed with corporate communications intern, reviewed EMR data (avail), reviewed images, amended to note Other Findings: This is 46 year old female with past medical history of morbid obesity s/p laparoscopic gastric bypass on 05/16/2016 with hiatal hernia repair, who lost about 50 pounds post surgery, history of hypertension, GERD presented from home with chief complaint of 1 day history of multiple episode of non-bloody vomiting and diarrhea with episodes of blackout without losing consciousness. Patient had similar symptoms 3 weeks ago and was seen in emergency department and at that time she was discharged with suspected diagnosis of viral gastroenteritis. Patient was evaluated by her bariatric surgeon a week ago and her exam was fine at that time. Patient was seen by her PCP a day prior to admission for evaluation of abnormal thyroid function. This morning when she woke up she felt not good and then started having multiple episode of nonbloody vomiting followed by multiple episodes of diarrhea. She also had episodes where she blacked out but denies any loss of consciousness or fall. She also reports abdominal pain radiating up to chest and to the right side of the abdomen associated with sweating and chills. She reports 9/10 epigastric abdominal pain non-relieved by morphine. She denies any sick contact, eating outside, recent travel. Her vitals on admission were T 98.7, HR 66, RR 16, BP 175/85, O2 sat 100% on room air On physical exam patient is alert oriented 3 in no acute distress, HEENT PERRLA EOMI, neck supple, heart S1-S2 normal without murmur, lungs clear on auscultation, abdomen soft with noted mild epigastric tenderness and right lower quadrant tenderness without guarding and rigidity, no CVA tenderness, no focal gross neuro deficit, no peripheral edema. Labs were significant for WBC 10,400, H&H 15.1/45.1, platelet 224, K3.8, BUN 15, creatinine 0.6, anion gap 17, blood glucose 137, lactic acid 1.8, troponin 0.08, mag 1.8, normal LFT. EKG revealed normal sinus rhythm at rate of 56, normal axis, no acute ST-T changes chest x-ray noted unremarkable CT abdomen and pelvis with oral and IV contrast revealed small focus of diverticulitis involving distal descending colon and nonobstructive 3 mm stone upper pole of right kidney Assessment and plan: This is 46 -year-old morbidly obese female who recently underwent laparoscopic gastric bypass presented to ER with sudden onset multiple episode of nonbilious nonbloody vomiting associated with abdominal pain and chills followed by diarrhea and episode of blackout without any loss of consciousness found to have small focus of diverticulitis of distal descending colon. 1. Diverticulitis of distal descending colon - Start empiric antibiotic Unasyn 3 g every [address] finding and exam findings suggestive of epigastric and right lower quadrant tenderness, in setting of persistent vomiting and diarrhea. Although patient noted afebrile with normal WBC count - Follow-up blood culture - follow-up C. difficile - Awaiting GI consult - Continue gentle fluid hydration - Zofran when necessary for nausea - Pain management 2. Status post gastric bypass - Continue multivitamin 3. Near syncope secondary to hypovolemia - IV gentle hydration 4. Chest pain - Get second set of troponin if negative no need to repeat 5. DVT prophylaxis Subcutaneous Lovenox 6. Full code CHRISTOPHER SANTOS MD 07/24/16 7116: Attending MD Review Statement Attending Statement Attending MD Statement: examined this patient, discuss w/resident/PA/CALL CENTER ASSOCIATE, agreed w/resident/PA/CALL CENTER ASSOCIATE, discussed with family, reviewed EMR data (avail), reviewed images, amended to note Attending Assessment/Plan: The patient is a 46 yo female who is s/p prior gastric bypass procedure (50 lb weight loss), h/o HTN, & GERD who presented in the ED with 1 day h/o nausea, vomiting, diarrhea and near loss of consciousness (multiple times). She also noted abdominal pain with this. No fever, chills, dyspnea or blood per rectum or hematemesis. Had some chest pain as well (substernal). Physical Exam: VS: T 98.7, BP 196/79, P 57, R 18 HEENT: eyes- PERRLA, EOMI [place]- dry mucosa Neck: no adenopathy Chest: clear Cor: RRR, nl s1, S2 w/o murm Abd: BS+, soft, + mild to moderate epigastric-RLQ tenderness w/o guarding or rebound, - HSM Ext: no edema Neuro: alert & oriented x 3, non-focal exam Labs/Tests- as above Impression/Plan: #Intractable Nausea/Vomiting/Diarrhea- ? may have had viral syndrome. No obstruction on CT (s/p gastric bypass). Plan: IV fluids/hydration, Zofran for nausea, check stool for C-difficile #Abdominal Pain/Diverticulitis- ? low grade diverticulitis. Has FH of this as well. Plan: Agree with IV Abx (Unasyn at present) and will follow. GI evaluation. Dilaudid for pain at present. #Chest Pain- most likely GERD. Plan: Will follow. PPI when able to take po. Willl monitor on telemetry and check troponins.
--- NOTE | 2016-07-24 18:19 | NUR ---
BEDE 187-1
--- NOTE | 2016-07-24 18:33 | NUR ---
PT WITH ONGOING LOWER ABDOMINAL PAIN. DECLINED APAP
--- NOTE | 2016-07-24 19:27 | NUR ---
CRITICAL TEST RESULTS [id number] ANNEMARIE KEE 46 F TESTS AND RESULTS: TROPONIN 0.19 Results received and read back by: YOSHI BURTON Results received date and time: 07/24/161926 The following provider was notified of the results, and read the results back: DR. AMADOR Notified date and time: 07/24/16 at 1928
--- NOTE | 2016-07-24 19:29 | NUR ---
HOUSE STAFF DR CLAUDINE ROMERO FOR CRITICAL VALUE CALL
--- NOTE | 2016-07-24 19:30 | NUR ---
PER DR. RHONA CHOW, PT STILL OK FOR TELEMETRY FLOOR
--- NOTE | 2016-07-24 19:32 | NUR ---
CAS CHAWLA AWARE OF TROPONIN
[2016-07-24 19:55] VITALS: BP 152/86
--- NOTE | 2016-07-24 22:16 | Admission Certification ---
Admission Certification Certification Statement - As attending physician, I certify that at the time of - admission, based on clinical presentation, severity of - symptoms, need for further diagnostic testing and - therapeutic interventions, and risk of adverse outcomes - without in-hospital treatment, in my clinical assessment, - this patient requires an acute hospital stay for a minimum - of two nights or longer. I have also considered psychsocial - factors such as support system, advanced age, financial - issues, cognitive issues, and failed out-patient treatments, - past re-admission history, safety of patient, and lack of - compliance as applicable. Specific rationale supporting this admission is: The patient is eingadmitted with persistent nausea, vomiting diarrhea and abdominal pain. Has had near syncope and ?diverticulitis on CT. Will admit to telemetry to monitor for arrythmia. IV hydration, IV antitiotics (Unasyn), GI consult, Zofran. Follow abdominal exam.
--- NOTE | 2016-07-25 06:00 | Event Note ---
Event Note Event Note: We were asked by am team to F/U troponin level and EKG at 12 midnight, patient has positive troponin of 6:30 pm of 0.19 with no EKG changes repeated EKG shows troponin of 0.4, with no EKG changes, I spoke to oncall Pay Clerk regarding elevated troponin, recommendation was to start patient on aspirin, plavix and iv heparin. She already received 325mg ASA at ED, will give 81mg ASA beside iv heparin and plavix.
--- NOTE | 2016-07-25 07:41 | Cons- Gastroenterology ---
General Information and HPI Consulting Request Date of Consult: 07/25/16 Requested By: CHRISTOPHER SANTOS MD Reason for Consult: I was called to see the patient for GI consultation today by the hospitalist service, to assess nausea, vomiting, and diarrhea, in a complex patient, post recent gastrojejunal bypass, with mild lower left colon diverticulitis noted on CT Source of Information: patient, old records Exam Limitations: no limitations History of Present Illness: 46-year-old female, hypertensive, non-diabetic, non-hyperlipidemic, mild ALLAN, DJD, low Vit D, post 01/18/2016: lap CCKY for cholelithiasis prior to gastric bypass. 05/16/2016: Lap gastrojejunal bypass & lap HH repair per Dr. Franklin. 05/17/2016: Postop UGI series without leak. The patient reportedly had a preop EGD by her previous bariatric surgeon, Dr. Escobedo, that was reportedly "normal" except for the hiatal hernia (I cannot locate the EGD report). She has not had a colonoscopy. The patient's BMI was 46 preoperatively. She went from 288 pounds to 238 pounds postop and is 5'8". Aside from both of the patient's parents being alcoholics, there is no family history of any inherited liver disease, GI malignancy, or GI disease. The patient claimed a preop Persantine thallium done in 10/[address] [place] [address] Crabtree was "normal." The patient went to the [facility] 06/19/2016, with nausea, vomiting, diarrhea, infraumbilical abdominal pain, and questionable syncope. Labs then showed normal CBC, normal CMP (except for a mildly decreased bicarbonate), normal amylase, normal lipase, troponin negative, serum hCG negative. 06/19/2016: CTA chest/CT AP with IV/po contrast- suboptimal view of pulmonary arteries, tiny opacities RML/RLL (felt to be postinflammatory), left hepatic hemangioma ( previously noted on ultrasound), stable right renal stone without hydronephrosis , otherwise stable post GJ bypass. The patient was sent from the ER on Zofran. The patient returned to the [facility] 07/24/2016, depending of similar symptoms of nausea, vomiting, diarrhea, infraumbilical abdominal pain, and questionable syncope. Her GI symptoms were unrelated to po intake. She denied any preceding recent travel, recent antibiotics, NSAID use, aspirin, or raw food ingestion. She was advancing her bariatric diet. She claimed she was solids and liquids, to avoid dumping syndrome. The vomitus was nonbilious, as expected post-GJ bypass, and was mostly clear & frothy. There was no hematemesis or melena. She had early satiety as expected postoperatively. There was no blood or mucus in the stool. She denied any constipation, obstipation, or tenesmus. She denied any rashes or acute arthralgias, aside from her DJD. She was taking bariatric supplements. She otherwise is on no outpatient medications. She denied any GERD, odynophagia, dysphagia, chest pain, pleuritic pain, or hemoptysis. She had mild shortness of breath. She denied any fevers, chills, jaundice, STRIKE OPERATIONS OFFICER symptoms, URI symptoms, dysuria, frequency, air in the urine, or feces in the urine. She was recently informed of an elevated T4 in 05/2016. Her infraumbilical pain "6 0 out of 10," seemed to radiate to the LLQ. 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 The diarrhea was only a few times. There was no history of incontinence. She is somewhat vague about the syncope. There was no LOC or seizure. She denied any palpitations or focal neurologic deficits. She is right-handed. She reportedly had a normal exam at her bariatric surgeon 1 week SENIOR BENEFITS SPECIALIST. Upon arrival to the [facility] 07/24/2016, a little after 2 PM, BP 175/85, P 58, T 98.7, R 20, O2 sat RA 100%. She was described as pale and dehydrated. Fingerstick showed glucose 117. She was given IV normal saline, morphine, sulfa , nitroglycerin, aspirin 325 mg, Zofran, Reglan, Lovenox, multivitamin, and Tylenol. 06/13/2016: low normal thiamine 92, normal iron studies with ferritin 73.4, B12 905, folate 19, low vitamin D 28.9. Imaging studies suggestive of diverticulitis in the lower left colon (see below) , & the patient was started on IV Unasyn 3g Q6h. She was admitted to telemetry. Her admission labs were relatively stable, however she bumped up her troponin and was given Plavix and IV heparin, in addition to the aspirin. The patient currently looks comfortable, but is receiving narcotic analgesics every 4 hours. 07/23/2016: Normal TFTs with normal TSH 1.28 07/24/2016: BCx 2- pending; *no U/A sent 07/24/2016: WBC 10.4 (83% gran/9 gran Ab), H/H 15.1/45.1, normal MCV 90.3, RDW 15.6, PLT 234, *elevated D-dimer 615, PT 11, INR 1.05, PTT 32, glucose 137, BUN/ Cr 15/0.6, GFR > 60, normal electrolytes except bicarbonate 17 with anion gap 17 , normal lactate 1.8, normal amylase/lipase 47/103, Mg 1.8, Ca 9.5, normal LFTs, including albumin 4.6, globulin 3.2, troponin 0.08, serum hCG negative. 07/25/2016: troponin .19, .40 07/24/2016: EKG- SB @ 56, normal axis, borderline prolonged QT interval, QS in III 07/25/2016: EKG- NSR @ 66, old IWMI, prolonged QT interval. 07/24/2016: CT ABD & PELVIS W ORAL & IV CONTRAST- 1. Small focus of diverticulitis involving the distal descending colon. No abscess, free air, or perforation. Normal appendix. Normal small bowel loops. 2. Status post gastric bypass. 3. Status post cholecystectomy. CBD 1 cm postop. No choledocholithiasis. 4. Stable 2 cm hypodensity left lobe liver, previously felt to be a hemangioma (noted on 07/19/2015: sono) 5. Nonobstructive 3 mm stone upper pole of the right kidney. 6. 2.4 cm right adnexal follicular cyst. No ascites. Retroverted uterus. 7. DJD. 07/24/2016: XRY-CHEST XRAY, PA AND LATERAL- No acute abnormality. Allergies/Medications Allergies: Coded Allergies: No Known Allergies (01/17/16) Home Med List: Ergocalciferol (Vitamin D2) (Vitamin D2) 50,000 UNIT CAPSULE 1 CAP PO QMON SUPPLEMENT (Reported) Multivitamin (Multi-Day Vitamins) 1 EACH TABLET 1 TAB PO DAILY SUPPLEMENT- BARIATRIC (Reported) Current Medications: Current Medications Sig/Erik Start time Last Medication Dose Route Stop Time Status Admin Acetaminophen 650 MG Q6P PRN 07/24 1745 AC PO Ampicillin Sodium/ 3,000 MG Q6 07/24 1833 AC 07/25 Sulbactam Sodium IV 0619 Sodium Chloride 100 ML Aspirin 81 MG DAILY 07/25 1000 AC PO Aspirin 0 .STK-MED ONE 07/24 1449 DC PO Aspirin 325 MG ONCE ONE 07/24 1445 DC 07/24 PO 07/24 1446 1455 Clopidogrel Bisulfate 75 MG DAILY 07/25 1000 AC PO Enoxaparin Sodium 40 MG DAILY 07/24 1743 DC 07/24 SC 2029 Heparin Sodium 25,000 UNIT Q24H 07/25 0600 AC 07/25 (Porcine) IV 0619 Sodium Chloride 500 ML Heparin Sodium 5,000 UNIT ONCE ONE 07/25 0600 DC 07/25 (Porcine) IV 07/25 0601 0619 Hydromorphone HCl 0 .STK-MED ONE 07/24 1930 DC .ROUTE Hydromorphone HCl 0.6 MG Q4P PRN 07/24 1900 AC 07/25 IV 0836 Metoclopramide HCl 0 .STK-MED ONE 07/24 1604 DC .ROUTE Metoclopramide HCl 10 MG ONCE ONE 07/24 1600 DC 07/24 IV 07/24 1601 1620 Morphine Sulfate 0 .STK-MED ONE 07/24 1450 DC .ROUTE Morphine Sulfate 2 MG ONCE ONE 07/24 1445 DC 07/24 IV 07/24 1446 1455 Multivitamins 1 TAB DAILY 07/25 1000 AC Therapeutic PO Nitroglycerin 0 .STK-MED ONE 07/24 1450 DC SL Nitroglycerin 0.4 MG ONCE ONE 07/24 1445 DC 07/24 SL 07/24 1446 1455 Ondansetron HCl 4 MG Q6P PRN 07/24 1745 AC IV Ondansetron HCl 4 MG ONCE ONE 07/24 1515 DC 07/24 IV 07/24 1516 1513 Ondansetron HCl 0 .STK-MED ONE 07/24 1513 DC .ROUTE Oxycodone/ 1 TAB Q6P PRN 07/24 1900 AC Acetaminophen PO Sodium Chloride 1,000 ML CONTINOUS INFUSION 07/24 1745 DC 07/24 IV 07/25 0704 1948 Sodium Chloride 1,000 ML BOLUS ONE 07/24 1445 DC 07/24 IV 07/24 4803 3950 Past History Travel History Traveled to [place] past 21 day No Medical History Blood Transfusion Hx: No Neurological: NONE EENT: NONE Cardiovascular: hypertension Respiratory: ? mild ALLAN Gastrointestinal: POST OP N/V; GJ bypass Hepatic: hemangioma left lobe liver Renal: nephrolithiasis (on right w/o hydro; ? type) Musculoskeletal: degen joint disease Psychiatric: NONE Endocrine: vitamin D deficiency Blood Disorders: NONE Cancer(s): NONE STRIKE OPERATIONS OFFICER/Reproductive: NONE Surgical History Surgical History: cholecystectomy (01/18/16: lap CCKY), 05/16/16: LAP GJ BYPASS & LAP HH REPAIR Family History Relations & Conditions If Any: FATHER (unknown cause, + EtOH). , Age 60+. MOTHER (EtOH). Age 60+. Relation not specified for: *No pertinent family history Psychosocial History Where Do You Live? Home Who Do You Live With? child Services at Home: None Primary Language: Salvadorean Smoking Status: Never Smoked ETOH Use: denies use (none recently), occasional use Illicit Drug Use: denies illicit drug use Living Will? no Power of Set Painter/HCP? no Other Social History: Single. Lives with 17 y/o dtr- [employer]. No cigarettes, drugs or EtOH. 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 Functional Ability ADLs Independent: dressing, eating, toileting, bathing. Ambulation: independent IADLs Independent: shopping, housework, finances, food prep, telephone, transportation , medication admin. Employment History Employment: Employed Profession/Employer: [employer] Review of Systems Review of Systems: Full 14 point review of systems otherwise noncontributory, and as above. Review of Systems Constitutional: Reports: malaise. Denies: chills, diaphoresis, fever, weakness, unexplained weight loss. EENTM: Denies: blurred vision, double vision, visual changes, eye pain, eye drainage, eye tearing, icterus, ear discharge, ear pain, ear redness, hearing changes, nasal congestion, epistaxis, nasal pain, throat pain, throat swelling, mouth pain, tooth pain. Cardiovascular: Reports: syncope. Denies: chest pain, edema, orthopena, palpitations, peripheral edema. Respiratory: Reports: short of breath (mild). Denies: cough, hemoptysis, orthopnea, sputum production, stridor, wheezing. GI: Reports: abdominal pain (infraumbilical to LLQ), diarrhea, nausea, vomiting. Denies: bloating, constipation, distention, bowel incontinence, melena, bloody stool, changes in stool, steatorrhea. Genitourinary: Denies: discharge, dysuria, frequency, hematuria, hesitation, nocturia, pain, urgency. Musculoskeletal: Reports: joint pain (DJD). Denies: back pain, gout, joint swelling, muscle pain , muscle stiffness, neck pain. Skin: Denies: cysts, change in skin color, change in hair/nails, dryness, erythema, jaundice, lesions, lymphangitis, lumps, moles, rash. Neurological/Psychological: Denies: anxiety, ataxia, cognitive dysfunction, confusion, depressed, dementia, emotional problems, headache, numbness, paresthesia, pre-existing deficit, petit mal seizures, tingling, tremors, tonic-clonic seizures, unable to move lower ext , unable to move upper ext, weakness. Hematologic/Endocrine: Denies: bruising, bleeding, polyuria, polydipsia. Immunologic/Allergic: Denies: splenectomy, HIV/AIDS, lymphadenopathy. All Other Systems: Reviewed and Negative Exam & Diagnostic Data Vital Signs and I&O Vital Signs Date Time Temp Pulse Resp B/P B/P Pulse O2 O2 Flow FiO2 Mean Ox Delivery Rate 07/25 0813 98.0 58 20 140/80 97 Room Air 07/24 1955 97.8 96 20 152/86 98 07/24 1906 99.5 68 16 152/80 99 Room Air 07/24 1730 99.2 62 16 162/80 95 Room Air 07/24 1620 57 18 196/79 Room Air 07/24 1506 66 16 145/68 05/ 1445 100 Room Air 07/24 1410 98.7 58 20 175/85 100 Room Air Intake & Output 07/25 0400 07/24 1600 07/24 0400 07/23 1600 07/23 0400 Intake Total 4533 645 8100 Output Total 500 Balance 773 796 4623 Intake, IV 628 521 4338 Intake, Oral 600 300 Number 0 0 Bowel Movements Output, Urine 500 Patient 238 lb 240 lb 240 lb Weight Weight Chair scale Reported by Patient Measurement Method Physical Exam: Well-developed, well-nourished, obese right handed female, in minimal distress. Sclera anicteric. Conjunctiva pink. No exophthalmos. No lid lag. Oropharynx clear. No oral thrush. No aphthous ulcers. There is no adenopathy, thyromegaly , or JVD. No peripheral stigmata of inflammatory bowel disease or chronic liver disease on exam. No spiders on the anterior chest wall. breast & pelvic exams: API. No CVA tenderness. Lungs: clear to A&P, with slight decreased BS at the bases B/L. Heart exam: regular rate rhythm, S1 and S2, without any murmur, rubs , or gallops. Abdominal exam: normal bowel sounds, soft obese belly, mild LLQ > infraumbilical tenderness, without guarding or rebound. No mass. No organomegaly. No fluid shift. No pulsatile mass. No epigastric bruit. Old scars. No palpable hernia. Digital rectal exam: deferred by myself, as OB- negative API on 07/24/2016. Extremities: without C, C, or E. +DJD. No palpable cords. No palmar erythema. No Dupuytren's contractures. Distal pulses 2+ bilaterally. DTRs 2+ bilaterally. Alert and oriented x 3. No cogwheeling or tremor on Reglan. No asterixis. CN II-XII intact. Motor 5/5 B/L. Results Pertinent Lab Results: Laboratory Tests 07/25 07/25 07/24 0700 0010 1830 Chemistry Sodium (137 - 145 mmol/L) 137 Potassium (3.5 - 5.1 mmol/L) 3.4 L Chloride (98 - 107 mmol/L) 106 Carbon Dioxide (22 - 30 mmol/L) 20 L Anion Gap (5 - 16) 11 BUN (7 - 17 mg/dL) 10 Creatinine (0.5 - 1.0 mg/dL) 0.5 Estimated GFR (>60 ml/min) > 60 BUN/Creatinine Ratio (7 - 25 %) 20.0 Troponin I (< 0.11 ng/ml) Pending 0.40 *H 0.19 *H 07/24 07/24 1422 1421 Chemistry Sodium (137 - 145 mmol/L) 140 Potassium (3.5 - 5.1 mmol/L) 3.8 Chloride (98 - 107 mmol/L) 105 Carbon Dioxide (22 - 30 mmol/L) 17 L Anion Gap (5 - 16) 17 H BUN (7 - 17 mg/dL) 15 Creatinine (0.5 - 1.0 mg/dL) 0.6 Estimated GFR (>60 ml/min) > 60 BUN/Creatinine Ratio (7 - 25 %) 25.0 Glucose (65 - 99 mg/dL) 137 H Lactic Acid (0.7 - 2.1 mmol/L) 1.8 Calcium (8.4 - 10.2 mg/dL) 9.5 Magnesium (1.6 - 2.3 mg/dL) 1.8 Total Bilirubin (0.2 - 1.3 mg/dL) 0.7 Direct Bilirubin (< 0.4 mg/dL) 0.4 AST (14 - 36 U/L) 18 ALT (9 - 52 U/L) 35 Alkaline Phosphatase (<127 U/L) 89 Troponin I (< 0.11 ng/ml) 0.08 Total Protein (6.3 - 8.2 g/dL) 7.8 Albumin (3.5 - 5.0 g/dL) 4.6 Globulin (1.9 - 4.2 gm/dL) 3.2 Albumin/Globulin Ratio (1.1 - 2.2 %) 1.4 Amylase (30 - 110 U/L) 47 Lipase (23 - 300 U/L) 103 Total Beta HCG (NEGATIVE) NEGATIVE Coagulation PT (9.4 - 12.5 SEC) 11.0 INR (0.90 - 1.19) 1.05 APTT (25 - 37 SEC) 32 D-Dimer (70 - 232 ng/ml) 615 H Hematology CBC w Diff NO MAN DIFF REQ WBC (4.8 - 10.8 /CUMM) 10.4 RBC (4.20 - 5.40 /CUMM) 5.00 Hgb (12.0 - 16.0 G/DL) 15.1 Hct (37 - 47 %) 45.1 MCV (81.0 - 99.0 FL) 90.3 MCH (27.0 - 31.0 PG) 30.2 RDW (11.5 - 14.5 %) 15.6 H Plt Count (130 - 400 /CUMM) 234 MPV (7.4 - 10.4 FL) 10.6 H Gran % (42.2 - 75.2 %) 82.6 H Lymphocytes % (20.5 - 51.1 %) 13.6 L Monocytes % (1.7 - 9.3 %) 3.2 Eosinophils % (0 - 5 %) 0.2 Basophils % (0.0 - 2.0 %) 0.4 Absolute Granulocytes (1.4 - 6.5 /CUMM) 8.6 H Absolute Lymphocytes (1.2 - 3.4 /CUMM) 1.4 Absolute Monocytes (0.10 - 0.60 /CUMM) 0.3 Absolute Eosinophils (0.0 - 0.7 /CUMM) 0 Absolute Basophils (0.0 - 0.2 /CUMM) 0 PUBS MCHC (33.0 - 37.0 G/DL) 33.5 Imaging/Other Studies: 07/24/2016: EKG- SB @ 56, normal axis, borderline prolonged QT interval, QS in III 07/25/2016: EKG- NSR @ 66, old IWMI, prolonged QT interval. 07/24/2016: CT ABD & PELVIS W ORAL & IV CONTRAST- 1. Small focus of diverticulitis involving the distal descending colon. No abscess, free air, or perforation. Normal appendix. Normal small bowel loops. 2. Status post gastric bypass. 3. Status post cholecystectomy. CBD 1 cm postop. No choledocholithiasis. 4. Stable 2 cm hypodensity left lobe liver, previously felt to be a hemangioma (noted on 07/19/2015: sono) 5. Nonobstructive 3 mm stone upper pole of the right kidney. 6. 2.4 cm right adnexal follicular cyst. No ascites. Retroverted uterus. 7. DJD. 07/24/2016: XRY-CHEST XRAY, PA AND LATERAL- No acute abnormality. Assessment/Plan Assessment/Recommendations: 46-year-old female, hypertensive, non-diabetic, non-hyperlipidemic, mild ALLAN, DJD, low Vit D, post 01/18/2016: lap CCKY for cholelithiasis prior to gastric bypass. 05/16/2016: Lap gastrojejunal bypass & lap HH repair per Dr. Franklin. 05/17/2016: Postop UGI series without leak. The patient reportedly had a preop EGD by her previous bariatric surgeon, Dr. Escobedo, that was reportedly "normal" except for the hiatal hernia (I cannot locate the EGD report). She has not had a colonoscopy. The patient's BMI was 46 preoperatively. She went from 288 pounds to 238 pounds postop and is 5'8". Aside from both of the patient's parents being alcoholics, there is no family history of any inherited liver disease, GI malignancy, or GI disease. The patient claimed a preop Persantine thallium done in 10/[address] [place] [address] Crabtree was "normal." The patient went to the [facility] 06/19/2016, with nausea, vomiting, diarrhea, infraumbilical abdominal pain, and questionable syncope. Labs then showed normal CBC, normal CMP (except for a mildly decreased bicarbonate), normal amylase, normal lipase, troponin negative, serum hCG negative. 06/19/2016: CTA chest/CT AP with IV/po contrast- suboptimal view of pulmonary arteries, tiny opacities RML/RLL (felt to be postinflammatory), left hepatic hemangioma ( previously noted on ultrasound), stable right renal stone without hydronephrosis , otherwise stable post GJ bypass. The patient was sent from the ER on . The patient returned to the [facility] 07/24/2016, depending of similar symptoms of nausea, vomiting, diarrhea, infraumbilical abdominal pain, and questionable syncope. Her GI symptoms were unrelated to po intake. She denied any preceding recent travel, recent antibiotics, NSAID use, aspirin, or raw food ingestion. She was advancing her bariatric diet. She claimed she was solids and liquids, to avoid dumping syndrome. The vomitus was nonbilious, as expected post-GJ bypass, and was mostly clear & frothy. There was no hematemesis or melena. She had early satiety as expected postoperatively. There was no blood or mucus in the stool. She denied any constipation, obstipation, or tenesmus. She denied any rashes or acute arthralgias, aside from her DJD. She was taking bariatric supplements. She otherwise is on no outpatient medications. She denied any GERD, odynophagia, dysphagia, chest pain, pleuritic pain, or hemoptysis. She had mild shortness of breath. She denied any fevers, chills, jaundice, STRIKE OPERATIONS OFFICER symptoms, URI symptoms, dysuria, frequency, air in the urine, or feces in the urine. She was recently informed of an elevated T4 in 05/2016. Her infraumbilical pain "6 0 out of 10," seemed to radiate to the LLQ. 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 The diarrhea was only a few times. There was no history of incontinence. She is somewhat vague about the syncope. There was no LOC or seizure. She denied any palpitations or focal neurologic deficits. She is right-handed. She reportedly had a normal exam at her bariatric surgeon 1 week SENIOR BENEFITS SPECIALIST. Upon arrival to the [facility] 07/24/2016, a little after 2 PM, BP 175/85, P 58, T 98.7, R 20, O2 sat RA 100%. She was described as pale and dehydrated. Fingerstick showed glucose 117. She was given IV normal saline, morphine, sulfa , nitroglycerin, aspirin 325 mg, Zofran, Reglan, Lovenox, multivitamin, and Tylenol. 06/13/2016: low normal thiamine 92, normal iron studies with ferritin 73.4, B12 905, folate 19, low vitamin D 28.9. Imaging studies suggestive of diverticulitis in the lower left colon (see below) , & the patient was started on IV Unasyn 3g Q6h. She was admitted to telemetry. Her admission labs were relatively stable, however she bumped up her troponin and was given Plavix and IV heparin, in addition to the aspirin. The patient currently looks comfortable, but is receiving narcotic analgesics every 4 hours. 07/23/2016: Normal TFTs with normal TSH 1.28 07/24/2016: BCx 2- pending; *no U/A sent 07/24/2016: WBC 10.4 (83% gran/9 gran Ab), H/H 15.1/45.1, normal MCV 90.3, RDW 15.6, PLT 234, *elevated D-dimer 615, PT 11, INR 1.05, PTT 32, glucose 137, BUN/ Cr 15/0.6, GFR > 60, normal electrolytes except bicarbonate 17 with anion gap 17 , normal lactate 1.8, normal amylase/lipase 47/103, Mg 1.8, Ca 9.5, normal LFTs, including albumin 4.6, globulin 3.2, troponin 0.08, serum hCG negative. 07/25/2016: troponin .19, .40 07/24/2016: EKG- SB @ 56, normal axis, borderline prolonged QT interval, QS in III 07/25/2016: EKG- NSR @ 66, old IWMI, prolonged QT interval. 07/24/2016: CT ABD & PELVIS W ORAL & IV CONTRAST- 1. Small focus of diverticulitis involving the distal descending colon. No abscess, free air, or perforation. Normal appendix. Normal small bowel loops. 2. Status post gastric bypass. 3. Status post cholecystectomy. CBD 1 cm postop. No choledocholithiasis. 4. Stable 2 cm hypodensity left lobe liver, previously felt to be a hemangioma (noted on 07/19/2015: sono) 5. Nonobstructive 3 mm stone upper pole of the right kidney. 6. 2.4 cm right adnexal follicular cyst. No ascites. Retroverted uterus. 7. DJD. 07/24/2016: XRY-CHEST XRAY, PA AND LATERAL- No acute abnormality. *The patient has mild lower left colon diverticulitis by admission CT. Her GJ bypass is intact. Her nausea, vomiting and mild diarrhea could be postop in nature and adaptation to her bariatric diet. Rule out dumping syndrome. Rule out gastroenteritis. Doubt bacterial enteritis. Doubt IBD. Doubt marginal ulcer postop, but possible. Her elevated troponins are noted. It is possible the nausea could be an anginal equivalent, especially with the rising troponins and elevated d-dimer. Please note, 06/11/2016: CTA chest- negative for PE, but somewhat limited views of pulmonary arteries She recently had an elevated T4, but subsequent TFTs were normal. Her LLQ symptoms certainly could be from her mild diverticulitis. SUGGEST: Clears po. Panculture. Continue IV Unasyn 3g Q6h. analgesics as needed. Reglan as needed. Zofran as needed. Syncope workup as per medical team. Advise cardiology consult. Stools are OB-negative. Will defer to cardiology regarding continuing anticoagulation and antiplatelet agents. DVT prophylaxis. Consider bariatric input. Would check trace elements & repeat thiamine level, in view of recent GJ bypass and syncope. Replete potassium. IV fluids. When diet is eventually advanced to a bariatric, low residue diet, continue to separate solids and liquids, to avoid dumping syndrome postop. Send stool for culture, Shiga toxin, & C. difficile. Once the patient's cardiac issues and syncope are worked up, the patient should have a baseline colonoscopy in 6-8 weeks (i.e.- 09/2016), to clear her colonic mucosa of any colitis or lesions. Further recommendations will follow, depending on clinical course. Problem List: 1. Diverticulitis 2. Nausea and vomiting in adult 3. Abdominal pain 4. Diarrhea 5. Gastric bypass status for obesity 6. Liver hemangioma 7. Morbid obesity 8. Elevated troponin Copies To: LORNE FRANKLIN DO; TOM SEAMAN,CHRISTOPHER; JOSE SEAMAN,Eliz BAKER; CANDACE SEAMAN,BRAYDEN Consult Acknowledgment - Thank you for your consult request.
--- NOTE | 2016-07-25 08:02 | PN- Housestaff ---
TRINI ORTIZ 07/25/16 0802: Subjective Follow-up For: - Abdominal discomfort - Nausea, vomiting, diarrhe - elevated troponins Complaints: no complaints Tele-Events Since Last Visit: NSR, HR 59- 66 bpm, no overnight events. Subjective: Pt was comfortable. No complaints. Abdominal pain subsided this am. No nausea or vomiting. Vitals remained stable. No chest pain, shortness of breath. Review of Systems Constitutional: Reports: see HPI. Objective Last 24 Hrs of Vital Signs/I&O Vital Signs Date Time Temp Pulse Resp B/P B/P Pulse O2 O2 Flow FiO2 Mean Ox Delivery Rate 07/24 1955 97.8 96 20 152/86 98 05 1906 99.5 68 16 152/80 99 Room Air 07/24 1730 99.2 62 16 162/80 95 Room Air 07/24 1620 57 18 196/79 Room Air 07/24 1506 66 16 145/68 05 1445 100 Room Air 07/24 1410 98.7 58 20 175/85 100 Room Air Intake & Output 07/25 1600 07/25 0800 07/25 0000 Intake Total 1250 550 Output Total 500 Balance 750 550 Intake, IV 650 250 Intake, Oral 600 300 Number 0 0 Bowel Movements Output, Urine 500 Patient 238 lb 240 lb Weight Weight Chair scale Reported by Patient Measurement Method Physical Exam General Appearance: No Acute Distress Other Physical Findings: General Appearance- Alert, Oriented X3, Cooperative, No Acute Distress, Mild Distress Skin No Rashes, No Breakdow HEENT Atraumatic, PERRLA, EOMI Neck Supple, No JVD, No thryomegaly Lymphatic Axillary nl, Cervical nl Cardiovascular Regular Rate, Normal S1, Normal S2, No Murmurs Lungs Normal Air Movement Abdomen Normal Bowel Sounds, Soft, No Hepatospenomegaly (epigastric tenderness) Neurological Normal Speech, Strength at 5/5 X4 Ext, Normal Tone, Sensation Intact, Cranial Nerves 3-12 NL, Reflexes 2+ Extremities No Cyanosis, No Edema, Normal Pulses, No Tenderness/Swelling Vascular Pulses Symmetrical Current Medications: Current Medications Sig/Erik Start time Last Medication Dose Route Stop Time Status Admin Acetaminophen 650 MG Q6P PRN 07/24 1745 AC PO Ampicillin Sodium/ 3,000 MG Q6 07/24 1833 AC 07/25 Sulbactam Sodium IV 0619 Sodium Chloride 100 ML Aspirin 81 MG DAILY 05 1000 AC PO Aspirin 0 .STK-MED ONE 07/24 1449 DC PO Aspirin 325 MG ONCE ONE 07/24 1445 DC 05/ PO 07/24 1446 1455 Clopidogrel Bisulfate 75 MG DAILY 07/25 1000 AC PO Enoxaparin Sodium 40 MG DAILY 05/ 1743 DC 05/ SC 2029 Heparin Sodium 25,000 UNIT Q24H 07/25 0600 AC 07/25 (Porcine) IV 0619 Sodium Chloride 500 ML Heparin Sodium 5,000 UNIT ONCE ONE 07/25 0600 DC 07/25 (Porcine) IV 07/25 0601 0619 Hydromorphone HCl 0 .STK-MED ONE 07/24 1930 DC .ROUTE Hydromorphone HCl 0.6 MG Q4P PRN 07/24 1900 AC 07/25 IV 0409 Metoclopramide HCl 0 .STK-MED ONE 07/24 1604 DC .ROUTE Metoclopramide HCl 10 MG ONCE ONE 07/24 1600 DC 07/24 IV 07/24 1601 1620 Morphine Sulfate 0 .STK-MED ONE 07/24 1450 DC .ROUTE Morphine Sulfate 2 MG ONCE ONE 07/24 1445 DC 07/24 IV 07/24 1446 1455 Multivitamins 1 TAB DAILY 07/25 1000 AC Therapeutic PO Nitroglycerin 0 .STK-MED ONE 07/24 1450 DC SL Nitroglycerin 0.4 MG ONCE ONE 07/24 1445 DC 07/24 SL 07/24 1446 1455 Ondansetron HCl 4 MG Q6P PRN 07/24 1745 AC IV Ondansetron HCl 4 MG ONCE ONE 07/24 1515 DC 05 IV 07/24 1516 1513 Ondansetron HCl 0 .STK-MED ONE 07/24 1513 DC .ROUTE Oxycodone/ 1 TAB Q6P PRN 07/24 1900 AC Acetaminophen PO Sodium Chloride 1,000 ML CONTINOUS INFUSION 07/24 1745 DC / IV 07/25 0704 1948 Sodium Chloride 1,000 ML BOLUS ONE 07/24 1445 DC 07/24 IV 07/24 1544 1430 Last 24 Hrs of Lab/Prosper Results Last 24 Hrs of Labs/Mics: Laboratory Tests 07/25/16 0700: Sodium Pending, Potassium Pending, Chloride Pending, Carbon Dioxide Pending, Anion Gap Pending, BUN Pending, Creatinine Pending, BUN/Creatinine Ratio Pending , Troponin I Pending 07/25/16 0010: Troponin I 0.40 *H 07/24/16 1830: Troponin I 0.19 *H 07/24/16 1422: Anion Gap 17 H, Estimated GFR > 60, BUN/Creatinine Ratio 25.0, Glucose 137 H, Lactic Acid 1.8, Calcium 9.5, Magnesium 1.8, Total Bilirubin 0.7, Direct Bilirubin 0.4, AST 18, ALT 35, Alkaline Phosphatase 89, Troponin I 0.08, Total Protein 7.8, Albumin 4.6, Globulin 3.2, Albumin/Globulin Ratio 1.4, Amylase 47, Lipase 103, Total Beta HCG NEGATIVE, CBC w Diff NO MAN DIFF REQ, RBC 5.00, MCV 90.3, MCH 30.2, RDW 15.6 H, MPV 10.6 H, Gran % 82.6 H, Lymphocytes % 13.6 L, Monocytes % 3.2, Eosinophils % 0.2, Basophils % 0.4, Absolute Granulocytes 8.6 H, Absolute Lymphocytes 1.4, Absolute Monocytes 0.3, Absolute Eosinophils 0, Absolute Basophils 0, PUBS MCHC 33.5 07/24/16 1421: PT 11.0, INR 1.05, APTT 32, D-Dimer 615 H Microbiology 07/24 2049 BLOOD: Blood Culture - RECD 07/25 2039 BLOOD: Blood Culture - RECD 07/24 175 URINE ROUT: Urine Culture - COLB Assessment/Plan Assessment: Ms Solorio is a 46-year-old woman who has a past medical history of hypertension, obesity (gastric bypass surgery done recently). She is being evaluated of near loss of consciousness 1 day. At the time of admission, vitals 98.7, respiration 20, pulse rate 58, blood pressure 175/85 (improved later ), pulse ox 100% on room air. Findings indicated WBC 10.4, hemoglobin 15.1, platelets 234, normal electrolytes-sodium 140, potassium 3.8, anion gap 17, bicarbonate 17, BUN 15. Creatinine 0.6, lactic acid 1.8, d-dimer 615, EKG revealed normal sinus rhythm, heart rate 51, slightly elevated T waves. Radiological findings-chest x-ray negative for any acute process. CT abdomen and pelvis with oral and IV contrast revealed small focus of diverticulitis involving the distal descending colon. Also was found a nonobstructing 3 mm stone in the upper pole of the right kidney (chronic as per the patient). Below is the problem list and plan: #1 nausea, vomiting, diarrhea-likely, common etiology is viral gastroenteritis. Since the patient underwent gastric bypass, acute changes in microbiota could possibly cause diarrhea. Also has diverticultitis, for which she is started on Unasyn. Bowel rest for now. GI consult. Metabolic abnormalities resulting from vomiting and diarrhea are being corrected. #2 hypertension- Currently off medications. #3 presyncope-monitor the patient on telemetry. Monitor for arrhythmias, heart block. May benefit from an echocardiogram at this time. Check orthostatic vitals. Elevated troponins w/ non specific T wave changes. Initially started on iv heparin, which was discontinued after speaking to Dr. Crabtree. Pt was already given aspirin, but plan to start on plavix in view of gastric bypass and increase incidence of ulcers. Discussed w/ Dr Borges who is agreeable to have the pt on plavix. #4 DVT prophylaxis-pharmacological. Problem List: 1. Elevated troponin 2. Gastric bypass status for obesity Pain Ratin Pain Location: abdomein Pain Goal: Pain 4 or less Pain Plan: dilmarko Tomorrow's Labs & Rationales: cbc janellp CHUCK SEAMAN,MAYANK 07/25/16 1250: Attending MD Review Statement Attending Statement Attending MD Statement: examined this patient, discuss w/resident/PA/LOCKSTITCH MACHINE OPERATOR, agreed w/resident/PA/LOCKSTITCH MACHINE OPERATOR, reviewed EMR data (avail), discussed with nursing, discussed with case mgmt, reviewed images, amended to note Attending Assessment/Plan: Patient seen and examined, feels okay. She underwent chest CT and at that point she was feeling slightly dizzy. Her heart rate has been running in the low side in 50s. Does feel nauseous this morning but no vomiting. Diarrhea has improved. Vital Signs Date Time Temp Pulse Resp B/P B/P Pulse O2 O2 Flow FiO2 Mean Ox Delivery Rate 07/25 0813 98.0 58 20 140/80 97 Room Air 07/24 1955 97.8 96 20 152/86 98 07/24 1906 99.5 68 16 152/80 99 Room Air 07/24 1730 99.2 62 16 162/80 95 Room Air 07/24 1620 57 18 196/79 Room Air 07/24 1506 66 16 145/68 07/24 1445 100 Room Air 07/24 1410 98.7 58 20 175/85 100 Room Air on exam; aox3, nad. cv; s1,s2, rrr resp; clear abd; soft, tender in the left side, bowel sounds positive. ext; no edema. Laboratory Tests 07/25 07/25 07/25 07/24 1150 0700 0010 1830 Chemistry Sodium (137 - 145 mmol/L) 137 Potassium (3.5 - 5.1 mmol/L) 3.4 L Chloride (98 - 107 mmol/L) 106 Carbon Dioxide (22 - 30 mmol/L) 20 L Anion Gap (5 - 16) 11 BUN (7 - 17 mg/dL) 10 Creatinine (0.5 - 1.0 mg/dL) 0.5 Estimated GFR (>60 ml/min) > 60 BUN/Creatinine Ratio (7 - 25 %) 20.0 Troponin I (< 0.11 ng/ml) 0.22 *H 0.40 *H 0.19 *H Coagulation APTT Pending 07/24 07/24 1422 1421 Chemistry Sodium (137 - 145 mmol/L) 140 Potassium (3.5 - 5.1 mmol/L) 3.8 Chloride (98 - 107 mmol/L) 105 Carbon Dioxide (22 - 30 mmol/L) 17 L Anion Gap (5 - 16) 17 H BUN (7 - 17 mg/dL) 15 Creatinine (0.5 - 1.0 mg/dL) 0.6 Estimated GFR (>60 ml/min) > 60 BUN/Creatinine Ratio (7 - 25 %) 25.0 Glucose (65 - 99 mg/dL) 137 H Lactic Acid (0.7 - 2.1 mmol/L) 1.8 Calcium (8.4 - 10.2 mg/dL) 9.5 Magnesium (1.6 - 2.3 mg/dL) 1.8 Total Bilirubin (0.2 - 1.3 mg/dL) 0.7 Direct Bilirubin (< 0.4 mg/dL) 0.4 AST (14 - 36 U/L) 18 ALT (9 - 52 U/L) 35 Alkaline Phosphatase (<127 U/L) 89 Troponin I (< 0.11 ng/ml) 0.08 Total Protein (6.3 - 8.2 g/dL) 7.8 Albumin (3.5 - 5.0 g/dL) 4.6 Globulin (1.9 - 4.2 gm/dL) 3.2 Albumin/Globulin Ratio (1.1 - 2.2 %) 1.4 Amylase (30 - 110 U/L) 47 Lipase (23 - 300 U/L) 103 Total Beta HCG (NEGATIVE) NEGATIVE Coagulation PT (9.4 - 12.5 SEC) 11.0 INR (0.90 - 1.19) 1.05 APTT (25 - 37 SEC) 32 D-Dimer (70 - 232 ng/ml) 615 H Hematology CBC w Diff NO MAN DIFF REQ WBC (4.8 - 10.8 /CUMM) 10.4 RBC (4.20 - 5.40 /CUMM) 5.00 Hgb (12.0 - 16.0 G/DL) 15.1 Hct (37 - 47 %) 45.1 MCV (81.0 - 99.0 FL) 90.3 MCH (27.0 - 31.0 PG) 30.2 RDW (11.5 - 14.5 %) 15.6 H Plt Count (130 - 400 /CUMM) 234 MPV (7.4 - 10.4 FL) 10.6 H Gran % (42.2 - 75.2 %) 82.6 H Lymphocytes % (20.5 - 51.1 %) 13.6 L Monocytes % (1.7 - 9.3 %) 3.2 Eosinophils % (0 - 5 %) 0.2 Basophils % (0.0 - 2.0 %) 0.4 Absolute Granulocytes (1.4 - 6.5 /CUMM) 8.6 H Absolute Lymphocytes (1.2 - 3.4 /CUMM) 1.4 Absolute Monocytes (0.10 - 0.60 /CUMM) 0.3 Absolute Eosinophils (0.0 - 0.7 /CUMM) 0 Absolute Basophils (0.0 - 0.2 /CUMM) 0 PUBS MCHC (33.0 - 37.0 G/DL) 33.5 A/P; 46 F with pmh sig for morbid obesity s/p laparoscopic gastric bypass on with hiatal hernia repair, who lost about 50 pounds post surgery, history of hypertension, GERD, admitted with abdominal pain, nausea, vomiting, diarrhea secondary to acute diverticulitis. Patient also had positive troponins likely secondary to demand ischemia. CT negative for pulmonary him resume. Heparin drip will be discontinued. Patient will be kept on antiplatelet therapy. Cardiology consult will be obtained. We'll keep him on clear liquid diet and advance as tolerated. Per GI , will try to separate solids from the liquid to avoid dumping syndrome postoperatively. She had a recent bariatric surgery done. Continue antibiotics. If she has diarrhea, or stool studies should be sent. Appreciate GI input. Surgical PA discuss with me and they are recommending keeping the patient on a PPI. Please start the patient on 40 mg of either Prilosec or Protonix to be taken in the cement paver while she is on antiplatelets. DVT Px; Can start lovenox once hep gtt is discontinued.
[2016-07-25 08:13] VITALS: BP 140/80
--- NOTE | 2016-07-25 10:31 | CT SCAN REPORT ---
EXAMINATION: CT ANGIOGRAM OF THE CHEST WITH CONTRAST (CT PULMONARY ANGIOGRAM FOR PE) CLINICAL INFORMATION: Shortness of breath. Elevated D-dimer. COMPARISON: 06/19/2016. TECHNIQUE: Prior to contrast administration, noncontrast localization images were obtained. Subsequently, multidetector volumetric imaging was performed from the thoracic inlet to below the diaphragms following the administration of 94 mL of Optiray 350 intravenous contrast. No contrast reaction reported. Sagittal, coronal, and MIP oblique sagittal reformatted images were obtained on the CT workstation, uploaded to PACS, and reviewed. Total exam dose-length product 630 mGy-cm FINDINGS: QUALITY OF STUDY/CONTRAST BOLUS: Satisfactory. PULMONARY ARTERIES: No filling defects are identified in the main, lobar or segmental vessels. THORACIC AORTA: Thoracic aorta is normal in caliber; no acute intramural hematoma, aneurysm or dissection. LUNGS AND PLEURA: Trachea and central airways are widely patent and normal in caliber. There are a few linear opacities of minimal atelectasis in the lower lobes. No pulmonary consolidation, edema, pneumothorax or pleural effusion. No interval development of a suspicious lung nodule or mass. MEDIASTINUM: Normal heart size. No pericardial effusion. No evidence of septal bowing or right heart strain. The esophagus is unremarkable. The visualized portion of the thyroid gland is normal. LYMPHATICS: No axillary, hilar, mediastinal or internal mammary lymphadenopathy. UPPER ABDOMEN: Gallbladder is surgically absent. A stable, 1.8 cm hypodense lesion within the left hepatic lobe corresponds to the hyperechoic focus on ultrasound of 07/18/2015 (consistent with cavernous hemangioma). No reflux of contrast into the hepatic veins to suggest elevated right heart pressures. Surgical changes from prior gastric bypass. OSSEOUS STRUCTURES: Dextroscoliosis of the thoracic spine. No aggressive bone lesions. IMPRESSION: No evidence of pulmonary embolism.
--- NOTE | 2016-07-25 13:47 | Cons- Cardiology ---
General Information and HPI Consulting Request Date of Consult: 07/25/16 Requested By: MAYANK WOODS MD Reason for Consult: Elevated troponin Source of Information: patient, old records History of Present Illness: Ms Solorio is a 46-year-old woman who is known to me from previous office visits and from her recent preoperative clearance for her bariatric surgery. She has been stable from a cardiac standpoint. In preparation for bariatric surgery she had an echocardiogram which was normal and a pharmacologic nuclear stress test which was also normal. These were both performed within the last 4 months. She underwent uneventful gastric bypass surgery in April. She was in her usual state of health until 1 day ago. She has a past medical history of hypertension, obesity (gastric bypass surgery done approximately one year ago). She came to the ER for evaluation of near loss of consciousness 1 day. As per the patient, she felt normal when she woke up this a.m., and experienced nausea a few hours after. Reports several episodes of vomiting 20 times, nonbilious, nonbloody, frothy. Also reported several episodes of diarrhea associated with abdominal pain. Pain 6/10, located around the umbilicus, which radiated into the epigastric region. No fever, cough, change in by mouth intake , history of food contamination, foreign travel. No shortness of breath, chest pain, palpitations, neurological weakness, loss of bladder or bowel function. Reported similar symptoms 3 weeks ago, which subsided without any medical intervention. The patient also noted some mid abdominal discomfort radiating to the epigastric area. After the vomiting, this radiated to the mid sternal area as well. No other cardiac symptoms were noted. Today, the patient is feeling well. She denies any recurrence of any symptoms. She notes that she had a similar episode of symptoms about one month ago. Allergies/Medications Allergies: Coded Allergies: No Known Allergies (01/17/16) Home Med List: Ergocalciferol (Vitamin D2) (Vitamin D2) 50,000 UNIT CAPSULE 1 CAP PO QMON SUPPLEMENT (Reported) Multivitamin (Multi-Day Vitamins) 1 EACH TABLET 1 TAB PO DAILY SUPPLEMENT- BARIATRIC (Reported) Past History Travel History Traveled to [place] past 21 day No Medical History Blood Transfusion Hx: No Neurological: NONE EENT: NONE Cardiovascular: hypertension Respiratory: ? mild ALLAN Gastrointestinal: POST OP N/V; GJ bypass Hepatic: hemangioma left lobe liver Renal: nephrolithiasis (on right w/o hydro; ? type) Musculoskeletal: degen joint disease Psychiatric: NONE Endocrine: vitamin D deficiency Blood Disorders: NONE Cancer(s): NONE RESIDENTIAL PLUMBER/Reproductive: NONE Surgical History Surgical History: cholecystectomy (01/18/16: lap CCKY), 05/16/16: LAP GJ BYPASS & LAP HH REPAIR Family History Relations & Conditions If Any: FATHER (unknown cause, + EtOH). , Age 60+. MOTHER (EtOH). Age 60+. Relation not specified for: *No pertinent family history Psychosocial History Where Do You Live? Home Who Do You Live With? child Services at Home: None Primary Language: Welsh Smoking Status: Never Smoked ETOH Use: denies use (none recently), occasional use Illicit Drug Use: denies illicit drug use Living Will? no Power of Physician Support Coordinator/HCP? no Other Social History: Single. Lives with 17 y/o dtr- [employer]. No cigarettes, drugs or EtOH. 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 Functional Ability ADLs Independent: dressing, eating, toileting, bathing. Ambulation: independent IADLs Independent: shopping, housework, finances, food prep, telephone, transportation , medication admin. Employment History Employment: Employed Profession/Employer [id number] Exam & Diagnostic Data Vital Signs and I&O Vital Signs Date Time Temp Pulse Resp B/P B/P Pulse O2 O2 Flow FiO2 Mean Ox Delivery Rate 07/25 812 98.0 58 20 140/80 97 Room Air 07/24 1955 97.8 96 20 152/86 98 07/24 1906 99.5 68 16 152/80 99 Room Air 07/24 1730 99.2 62 16 162/80 95 Room Air 07/24 1620 57 18 196/79 Room Air 07/24 1506 66 16 145/68 07/24 1445 100 Room Air 07/24 1410 98.7 58 20 175/85 100 Room Air Intake & Output 07/25 1600 07/25 0800 07/25 0000 07/24 1600 07/24 0807/24 0000 Intake Total 3653 714 1655 Output Total 500 Balance 311 963 1256 Intake, IV 933 840 1969 Intake, Oral 600 300 Number 0 0 Bowel Movements Output, Urine 500 Patient 238 lb 240 lb 240 lb Weight Weight Chair scale Reported by Patient Measurement Method Labs/Prosper Results: Laboratory Tests 07/25 07/25 07/25 07/25 07/24 1150 1013 0700 0010 1830 Chemistry Sodium (137 - 145 mmol/L) 137 Potassium (3.5 - 5.1 mmol/L) 3.4 L Chloride (98 - 107 mmol/L) 106 Carbon Dioxide (22 - 30 mmol/L) 20 L Anion Gap (5 - 16) 11 BUN (7 - 17 mg/dL) 10 Creatinine (0.5 - 1.0 mg/dL) 0.5 Estimated GFR (>60 ml/min) > 60 BUN/Creatinine Ratio (7 - 25 %) 20.0 Troponin I (< 0.11 ng/ml) 0.22 *H 0.40 *H 0.19 *H Coagulation APTT Pending Urines Urine Color Pending Urine Clarity Pending Urine pH Pending Ur Specific [place] Pending Urine Protein Pending Urine Ketones Pending Urine Nitrite Pending Urine Bilirubin Pending Urine Urobilinogen Pending Ur Leukocyte Esterase Pending Ur Microscopic Pending Urine Hemoglobin Pending Urine Glucose Pending 07/24 07/24 1422 1421 Chemistry Sodium (137 - 145 mmol/L) 140 Potassium (3.5 - 5.1 mmol/L) 3.8 Chloride (98 - 107 mmol/L) 105 Carbon Dioxide (22 - 30 mmol/L) 17 L Anion Gap (5 - 16) 17 H BUN (7 - 17 mg/dL) 15 Creatinine (0.5 - 1.0 mg/dL) 0.6 Estimated GFR (>60 ml/min) > 60 BUN/Creatinine Ratio (7 - 25 %) 25.0 Glucose (65 - 99 mg/dL) 137 H Lactic Acid (0.7 - 2.1 mmol/L) 1.8 Calcium (8.4 - 10.2 mg/dL) 9.5 Magnesium (1.6 - 2.3 mg/dL) 1.8 Total Bilirubin (0.2 - 1.3 mg/dL) 0.7 Direct Bilirubin (< 0.4 mg/dL) 0.4 AST (14 - 36 U/L) 18 ALT (9 - 52 U/L) 35 Alkaline Phosphatase (<127 U/L) 89 Troponin I (< 0.11 ng/ml) 0.08 Total Protein (6.3 - 8.2 g/dL) 7.8 Albumin (3.5 - 5.0 g/dL) 4.6 Globulin (1.9 - 4.2 gm/dL) 3.2 Albumin/Globulin Ratio (1.1 - 2.2 %) 1.4 Amylase (30 - 110 U/L) 47 Lipase (23 - 300 U/L) 103 Total Beta HCG (NEGATIVE) NEGATIVE Coagulation PT (9.4 - 12.5 SEC) 11.0 INR (0.90 - 1.19) 1.05 APTT (25 - 37 SEC) 32 D-Dimer (70 - 232 ng/ml) 615 H Hematology CBC w Diff NO MAN DIFF REQ WBC (4.8 - 10.8 /CUMM) 10.4 RBC (4.20 - 5.40 /CUMM) 5.00 Hgb (12.0 - 16.0 G/DL) 15.1 Hct (37 - 47 %) 45.1 MCV (81.0 - 99.0 FL) 90.3 MCH (27.0 - 31.0 PG) 30.2 RDW (11.5 - 14.5 %) 15.6 H Plt Count (130 - 400 /CUMM) 234 MPV (7.4 - 10.4 FL) 10.6 H Gran % (42.2 - 75.2 %) 82.6 H Lymphocytes % (20.5 - 51.1 %) 13.6 L Monocytes % (1.7 - 9.3 %) 3.2 Eosinophils % (0 - 5 %) 0.2 Basophils % (0.0 - 2.0 %) 0.4 Absolute Granulocytes (1.4 - 6.5 /CUMM) 8.6 H Absolute Lymphocytes (1.2 - 3.4 /CUMM) 1.4 Absolute Monocytes (0.10 - 0.60 /CUMM) 0.3 Absolute Eosinophils (0.0 - 0.7 /CUMM) 0 Absolute Basophils (0.0 - 0.2 /CUMM) 0 PUBS MCHC (33.0 - 37.0 G/DL) 33.5 Diagnostic Data EKG Results Sinus bradycardia; insignificant inferior Q waves; no change from old EKG. Other Results Abdominal/pelvic CT scan: IMPRESSION: 1. Small focus of diverticulitis involving the distal descending colon. 2. Status post gastric bypass. 3. Status post cholecystectomy. 4. Nonobstructive 3 mm stone upper pole of the right kidney. Assessment/Plan Assessment/Plan Assessment: 1. Abdominal symptoms of nausea, vomiting, and diarrhea with evidence of diverticulitis on CT scan 2. Minimally elevated troponin-peak 0.4. At the moment, I do not see any evidence of any acute ischemic event. The patient has no symptoms to suggest cardiac disease. Her chest CT shows no evidence of coronary calcification. Her echocardiogram are ECGs are unremarkable. Her recent evaluation including an echocardiogram and pharmacologic nuclear stress test were both normal. 3. History of hypertension 4. Status post recent gastric bypass surgery Recommendations: -Keep on telemetry for now. -Discontinue IV heparin -Continue Plavix or aspirin 81 if OK with bariatric surgery. -Echocardiogram pending -Further plans after the above. Consult Acknowledgment - Thank you for your consult request.
[2016-07-25 14:08] LABS: PTT 53 SEC (25-37)
[2016-07-25 16:39] VITALS: BP 142/70
[2016-07-25 23:50] VITALS: BP 118/60
[2016-07-26 08:03] VITALS: BP 130/78
--- NOTE | 2016-07-26 08:11 | PN- Housestaff ---
TRINI ORTIZ 07/26/16 0809: Subjective Follow-up For: - Elevated troponin - Abdominal pain Complaints: no complaints Tele-Events Since Last Visit: NSR, HR 48-80s, Lowest HR 46. As per the pt, the HR runs on the lower range 50s which was recorded at home. Subjective: Pt comfortable. Still complains of abdominal discomfort. She had several episodes of hypoglycemia, for which she had to be given iv dextrose. Unfortunately, she could not be given high glucose content containing foods. Vitals stable. Remained afebrile. Review of Systems Constitutional: Reports: see HPI. Objective Last 24 Hrs of Vital Signs/I&O Vital Signs Date Time Temp Pulse Resp B/P B/P Pulse O2 O2 Flow FiO2 Mean Ox Delivery Rate 07/26 0803 98.6 60 18 130/78 98 Room Air 07/26 0000 97 Room Air 07/25 2350 98.1 56 20 118/60 97 Room Air 07/25 1639 98.6 51 20 142/70 98 Room Air 07/25 0813 98.0 58 20 140/80 97 Room Air Intake & Output 07/26 1600 07/26 0800 07/26 0000 Intake Total 640 340 Output Total Balance 640 340 Intake, Oral 640 340 Patient 236 lb Weight Weight Standing Scale Measurement Method Physical Exam General Appearance: No Acute Distress Other Physical Findings: General Appearance- Alert, Oriented X3, Cooperative, No Acute Distress, Mild Distress Skin No Rashes, No Breakdow HEENT Atraumatic, PERRLA, EOMI Neck Supple, No JVD, No thryomegaly Lymphatic Axillary nl, Cervical nl Cardiovascular Regular Rate, Normal S1, Normal S2, No Murmurs Lungs Normal Air Movement Abdomen Normal Bowel Sounds, Soft, No Hepatospenomegaly (epigastric tenderness) Neurological Normal Speech, Strength at 5/5 X4 Ext, Normal Tone, Sensation Intact, Cranial Nerves 3-12 NL, Reflexes 2+ Extremities No Cyanosis, No Edema, Normal Pulses, No Tenderness/Swelling Vascular Pulses Symmetrical Current Medications: Current Medications Sig/Erik Start time Last Medication Dose Route Stop Time Status Admin Acetaminophen 650 MG Q6P PRN 07/24 1745 AC PO Ampicillin Sodium/ 3,000 MG Q6 07/24 1833 AC 07/26 Sulbactam Sodium IV 0615 Sodium Chloride 100 ML Aspirin 81 MG DAILY 05/04 1000 CAN PO Aspirin 81 MG DAILY 07/25 1000 CAN PO Clopidogrel Bisulfate 75 MG DAILY 07/25 1215 AC 07/25 PO 1326 Clopidogrel Bisulfate 75 MG DAILY 07/25 1000 CAN PO Heparin Sodium 25,000 UNIT Q24H 07/25 0600 DC 07/25 (Porcine) IV 0619 Sodium Chloride 500 ML Hydromorphone HCl 0.6 MG Q4P PRN 07/24 1900 AC 07/26 IV 0615 Multivitamins 1 TAB DAILY 07/25 1000 AC 07/25 Therapeutic PO 1009 Omeprazole 40 MG DAILY AC 07/26 0700 CAN PO Omeprazole 40 MG DAILY AC 07/26 0700 AC 07/26 PO 0615 Ondansetron HCl 4 MG Q6P PRN 07/24 1745 AC IV Oxycodone/ 1 TAB Q6P PRN 07/24 1900 AC Acetaminophen PO Potassium Chloride 20 MEQ ONCE ONE 07/25 1200 DC 07/25 PO 07/25 1201 1326 Potassium Chloride 40 MEQ ONCE ONE 07/25 0945 DC 07/25 PO 07/25 0946 1009 Last 24 Hrs of Lab/[place] Results Last 24 Hrs of Labs/Mics: Laboratory Tests 07/26/16 0645: Anion Gap 10, Estimated GFR > 60, BUN/Creatinine Ratio 15.0 07/25/16 1150: APTT 53 H 07/25/16 1013: Urinalysis LIGHT H, Urine Color YEL, Urine Clarity HAZY H, Urine pH 6.5, Ur Specific [place] 1.025, Urine Protein TRACE H, Urine Ketones 15 H, Urine Nitrite NEG, Urine Bilirubin NEG@ICTO, Urine Urobilinogen 0.2, Ur Leukocyte Esterase NEG, Ur Microscopic SEDIMENT EXAMINED, Urine RBC 15-25 H, Urine WBC 10 -15 H, Ur Epithelial Cells MANY H, Urine Bacteria MANY H, Urine Hemoglobin LARGE H, Urine Glucose NEG Microbiology 07/25 1122 STOOL: Stool Culture - COLB 07/25 1013 URINE ROUT: Urine Culture - RECD Assessment/Plan Assessment: Ms Solorio is a 46-year-old woman who has a past medical history of hypertension, obesity (gastric bypass surgery done recently). She is being evaluated of near loss of consciousness 1 day. Below is the problem list and plan: #1 nausea, vomiting, diarrhea-likely, common etiology is viral gastroenteritis. Since the patient underwent gastric bypass, acute changes in microbiota could possibly cause diarrhea. Also has diverticultitis, for which she is started on Unasyn. Bowel rest for now. Metabolic abnormalities resulting from vomiting and diarrhea are being corrected. Restart low residue diet w/ protein supplement. #2 hypertension- Currently off medications. #3 presyncope-monitor the patient on telemetry. Monitor for arrhythmias, heart block. Echocardiogram pending. Elevated troponins w/ non specific T wave changes. Initially started on iv heparin, which was discontinued after speaking to Dr. Crabtree. Pt was already given aspirin, but plan to start on plavix in view of gastric bypass and increase incidence of ulcers. Discussed w/ Dr Borges who is agreeable to have the pt on plavix. #4 DVT prophylaxis-pharmacological. Problem List: 1. Elevated troponin 2. Diarrhea Pain Ratin Pain Location: abdomen Pain Goal: Pain 4 or less Pain Plan: tylenol prn Tomorrow's Labs & Rationales: cbc bep CHUCK SEAMAN,MAYANK 07/26/16 1343: Attending MD Review Statement Attending Statement Attending MD Statement: examined this patient, discuss w/resident/PA/SAWMILL HAND, agreed w/resident/PA/SAWMILL HAND, reviewed EMR data (avail), discussed with nursing, discussed with case mgmt, reviewed images, amended to note Attending Assessment/Plan: Patient seen and examined, still feels somewhat nauseous. Denies any further vomiting or diarrhea. She still does not have much appetite. Vital Signs Date Time Temp Pulse Resp B/P B/P Pulse O2 O2 Flow FiO2 Mean Ox Delivery Rate 07/26 0803 98.6 60 18 130/78 98 Room Air 07/26 0000 97 Room Air 07/25 2350 98.1 56 20 118/60 97 Room Air 07/25 1639 98.6 51 20 142/70 98 Room Air on exam; aox3, nad. cv; s1,s2, rrr, remains bradycardic. resp; clear abd; soft, nt, bs+ ext; no edema. Laboratory Tests 07/26 0645 Chemistry Sodium (137 - 145 mmol/L) 137 Potassium (3.5 - 5.1 mmol/L) 4.1 Chloride (98 - 107 mmol/L) 106 Carbon Dioxide (22 - 30 mmol/L) 21 L Anion Gap (5 - 16) 10 BUN (7 - 17 mg/dL) 9 Creatinine (0.5 - 1.0 mg/dL) 0.6 Estimated GFR (>60 ml/min) > 60 BUN/Creatinine Ratio (7 - 25 %) 15.0 A/P: 46 F with pmh sig for morbid obesity s/p laparoscopic gastric bypass on with hiatal hernia repair, who lost about 50 pounds post surgery, history of hypertension, GERD, admitted with abdominal pain, nausea, vomiting, diarrhea secondary to acute diverticulitis. Patient also had positive troponins likely secondary to demand ischemia. At this point spoke with surgical PA who got in touch base with Dr. Landaverde. They are recommending stage I or stage II bariatric diet with IsoPure protein shake 3 times a day. This will be started. We will try to advance her diet but if she remains nauseous then surgeries recommending doing an upper GI series or may be involving GI. Continue antibiotics, will likely switch to oral in the next 24 hours. Echocardiogram results are pending. DVT prophylaxis: ALPS.
--- NOTE | 2016-07-26 08:46 | PN- Cardiology ---
Subjective Subjective: Interval history: This morning she reports intermittent episodes of nonspecific abdominal discomfort and concerns for low blood sugar readings. She reports that since her gastric surgery she has advanced her diet to stage IV with no complications. She denies any nausea, fevers, chills, chest pain, palpitations or shortness of Review of Systems Constitutional: Reports: see HPI. EENTM: Reports: no symptoms. Cardiovascular: Reports: no symptoms. Respiratory: Reports: no symptoms. Gastrointestinal: Reports: see HPI. Objective Vital Signs and I&Os Vital Signs Date Time Temp Pulse Resp B/P B/P Pulse O2 O2 Flow FiO2 Mean Ox Delivery Rate 07/28 819 98.4 60 18 140/72 97 Room Air 07/26 2216 99.4 65 18 132/70 97 Room Air 07/26 1543 98.2 55 18 152/82 98 Intake & Output 07/27 1600 07/27 0800 07/27 0000 07/26 1600 07/26 0800 07/26 0000 Intake Total 540 520 740 640 340 Output Total Balance 540 520 740 640 340 Intake, IV 240 100 Intake, Oral 300 520 640 640 340 Patient 236 lb Weight Weight Standing Scale Measurement Method Physical Exam General Appearance: well developed/nourished, no apparent distress, alert, comfortable Head: normal appearance Ears, Nose, Throat: hearing grossly normal Respiratory: lungs clear, Distant breath sounds BL Cardiovascular: regular rate/rhythm Abdomen: Diminshed bowel sounds with mild disomfort elicited on palpation of the epigastric region Extremities: normal range of motion, 1+ pitting edema BL LE Current Medications: Current Medications Sig/Erik Start time Last Medication Dose Route Stop Time Status Admin Acetaminophen 650 MG Q6P PRN 07/24 1745 AC PO Ampicillin Sodium/ 3,000 MG Q6 07/24 1833 DC 07/27 Sulbactam Sodium IV 0653 Sodium Chloride 100 ML Ciprofloxacin 250 MG BID 07/27 1000 AC 07/27 PO 07/31 0959 0940 Clopidogrel Bisulfate 75 MG DAILY 07/25 1215 AC 07/27 PO 0940 Dextrose 25 GM ONCE ONE 07/27 0645 DC 07/27 IV 07/27 0646 0654 Dextrose 25 GM ONCE ONE 07/27 0145 DC 07/27 IV 07/27 0146 0140 Dextrose 12.5 GM ONCE ONE 07/26 2145 DC 07/26 IV 07/26 214 2158 Dextrose 25 GM ONCE ONE 07/26 1600 DC 07/26 IV 07/26 1601 1603 Dextrose 25 GM ONCE ONE 07/26 1145 DC 07/26 IV 07/26 1146 1120 Dextrose 25 GM ONCE ONE 07/26 1015 DC 07/26 IV 07/26 1016 0800 Dextrose/Sodium 1,000 ML Q13H 07/27 0645 AC 07/27 Chloride IV 07/27 1644 0824 Hydromorphone HCl 0.6 MG Q4P PRN 07/24 1900 AC 07/27 IV 0824 Metronidazole 500 MG Q8 07/27 0841 AC 07/27 PO 0940 Multivitamins 1 TAB DAILY 07/25 1000 AC 07/27 Therapeutic PO 0940 Omeprazole 40 MG DAILY AC 07/26 0700 AC 07/27 PO 0653 Ondansetron HCl 4 MG Q6P PRN 07/24 1745 AC IV Oxycodone/ 1 TAB Q6P PRN 07/24 1900 AC Acetaminophen PO Patient Medication 1 ED .STK-MED ONE 07/26 1357 IN Teaching ED 07/26 1358 Results Last 48 Hrs of Labs/Mics: Laboratory Tests 07/27/16 0610: Anion Gap 9, Estimated GFR > 60, BUN/Creatinine Ratio 15.0, Magnesium Pending 07/26/16 0645: Anion Gap 10, Estimated GFR > 60, BUN/Creatinine Ratio 15.0 07/25/16 1150: APTT 53 H 07/25/16 1013: Urinalysis LIGHT H, Urine Color YEL, Urine Clarity HAZY H, Urine pH 6.5, Ur Specific [place] 1.025, Urine Protein TRACE H, Urine Ketones 15 H, Urine Nitrite NEG, Urine Bilirubin NEG@[email or web address], Urine Urobilinogen 0.2, Ur Leukocyte Esterase NEG, Ur Microscopic SEDIMENT EXAMINED, Urine RBC 15-25 H, Urine WBC 10 -15 H, Ur Epithelial Cells MANY H, Urine Bacteria MANY H, Urine Hemoglobin LARGE H, Urine Glucose NEG Assessment/Plan Assessment/Plan Problem list: 1. Abdominal symptoms of nausea, vomiting, and diarrhea with evidence of diverticulitis on CT scan 2. Minimally elevated troponin-peak 0.4. At the moment, I do not see any evidence of any acute ischemic event. The patient has no symptoms to suggest cardiac disease. Her chest CT shows no evidence of coronary calcification. Her echocardiogram are ECGs are unremarkable. Her recent evaluation including an echocardiogram and pharmacologic nuclear stress test were both normal. 3. History of hypertension 4. Status post recent gastric bypass surgery Recommendations: * Echocardiogram pending at this time * Fluctuations in HR noted this morning can be attirubted to be secondary to ssympathetic response in the setting of hypoglycemic episodes. Will defer initiating rate control agents as this could mask the symptoms * Check lipid panel for ASCVD classifications and initiation antihyperlipidemic medications if warranted Continue telemetry? Yes
--- NOTE | 2016-07-26 08:46 | NUR ---
FINGERSTICK AT 0700 WAS 60. PATIENT REPORTS FEELING "DIZZY AND SHAKY" DR. CHOW NOTIFIED AND 1/2 AMP D50 GIVEN IV ORDERED. RECHECK FINGERSTICK 118.
[2016-07-26 15:43] VITALS: BP 152/82
--- NOTE | 2016-07-26 18:22 | PN- Gastroenterology ---
Assessment/Plan Assessment/Recommendations: 46-year-old female, hypertensive, non-diabetic, non-hyperlipidemic, mild ALLAN, DJD, low Vit D, post 01/18/2016: lap CCKY for cholelithiasis prior to gastric bypass. 05/16/2016: Lap gastrojejunal bypass & lap HH repair per Dr. Kennedy. 05/17/2016: Postop UGI series without leak. The patient reportedly had a preop EGD by her previous bariatric surgeon, Dr. Escobedo, that was reportedly "normal" except for the hiatal hernia (I cannot locate the EGD report). She has not had a colonoscopy. The patient's BMI was 46 preoperatively. She went from 288 pounds to 238 pounds postop and is 5'8". Aside from both of the patient's parents being alcoholics, there is no family history of any inherited liver disease, GI malignancy, or GI disease. The patient claimed a preop Persantine thallium done in 10/[address] [place] [address] Crabtree was "normal." The patient went to the [place] ER 06/19/2016, with nausea, vomiting, diarrhea, infraumbilical abdominal pain, and questionable syncope. Labs then showed normal CBC, normal CMP (except for a mildly decreased bicarbonate), normal amylase, normal lipase, troponin negative, serum hCG negative. 06/19/2016: CTA chest/CT AP with IV/po contrast- suboptimal view of pulmonary arteries, tiny opacities RML/RLL (felt to be postinflammatory), left hepatic hemangioma ( previously noted on ultrasound), stable right renal stone without hydronephrosis , otherwise stable post GJ bypass. The patient was sent from the ER on Zofran. The patient returned to the [place] ER 07/24/2016, depending of similar symptoms of nausea, vomiting, diarrhea, infraumbilical abdominal pain, and questionable syncope. Her GI symptoms were unrelated to po intake. She denied any preceding recent travel, recent antibiotics, NSAID use, aspirin, or raw food ingestion. She was advancing her bariatric diet. She claimed she was solids and liquids, to avoid dumping syndrome. The vomitus was nonbilious, as expected post-GJ bypass, and was mostly clear & frothy. There was no hematemesis or melena. She had early satiety as expected postoperatively. There was no blood or mucus in the stool. She denied any constipation, obstipation, or tenesmus. She denied any rashes or acute arthralgias, aside from her DJD. She was taking bariatric supplements. She otherwise is on no outpatient medications. She denied any GERD, odynophagia, dysphagia, chest pain, pleuritic pain, or hemoptysis. She had mild shortness of breath. 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 She was recently informed of an elevated T4 in 05/2016. Her infraumbilical pain "6 0 out of 10," seemed to radiate to the LLQ. 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 The diarrhea was only a few times. There was no history of incontinence. She is somewhat vague about the syncope. There was no LOC or seizure. She denied any palpitations or focal neurologic deficits. She is right-handed. She reportedly had a normal exam at her bariatric surgeon 1 week NET DEVELOPER SOFTWARE ENGINEER C. Upon arrival to the [facility] 07/24/2016, a little after 2 PM, BP 175/85, P 58, T 98.7, R 20, O2 sat RA 100%. She was described as pale and dehydrated. Fingerstick showed glucose 117. She was given IV normal saline, morphine, sulfa , nitroglycerin, aspirin 325 mg, Zofran, Reglan, Lovenox, multivitamin, and Tylenol. 06/13/2016: low normal thiamine 92, normal iron studies with ferritin 73.4, B12 905, folate 19, low vitamin D 28.9. Imaging studies suggestive of diverticulitis in the lower left colon (see below) , & the patient was started on IV Unasyn 3g Q6h. She was admitted to telemetry. Her admission labs were relatively stable, however she bumped up her troponin and was given Plavix and IV heparin, in addition to the aspirin. The patient currently looks comfortable, but is receiving narcotic analgesics every 4 hours. 07/23/2016: Normal TFTs with normal TSH 1.28 07/24/2016: BCx 2- negative x 1 day. 07/25/2016: UC- negative x 1 day. 07/24/2016: WBC 10.4 (83% gran/9 gran Ab), H/H 15.1/45.1, normal MCV 90.3, RDW 15.6, PLT 234, *elevated D-dimer 615, PT 11, INR 1.05, PTT 32, glucose 137, BUN/ Cr 15/0.6, GFR > 60, normal electrolytes except bicarbonate 17 with anion gap 17 , normal lactate 1.8, normal amylase/lipase 47/103, Mg 1.8, Ca 9.5, normal LFTs, including albumin 4.6, globulin 3.2, *troponin 0.08, serum hCG- negative. 07/24/2016: *U Tox: +OP/MS 2378, +cannabis 75. 07/25/2016: troponin .19, .40, .22 07/24/2016: EKG- SB @ 56, normal axis, borderline prolonged QT interval, QS in III 07/25/2016: EKG- NSR @ 66, old IWMI, prolonged QT interval. 07/24/2016: CT ABD & PELVIS W ORAL & IV CONTRAST- 1. Small focus of diverticulitis involving the distal descending colon. No abscess, free air, or perforation. Normal appendix. Normal small bowel loops. 2. Status post gastric bypass. 3. Status post cholecystectomy. CBD 1 cm postop. No choledocholithiasis. 4. Stable 2 cm hypodensity left lobe liver, previously felt to be a hemangioma (noted on 07/19/2015: sono) 5. Nonobstructive 3 mm stone upper pole of the right kidney. 6. 2.4 cm right adnexal follicular cyst. No ascites. Retroverted uterus. 7. DJD. 07/24/2016: XRY-CHEST XRAY, PA AND LATERAL- No acute abnormality. *The patient has mild lower left colon diverticulitis by admission CT. Her GJ bypass is intact. Her nausea, vomiting and mild diarrhea could be postop in nature and adaptation to her bariatric diet. Rule out dumping syndrome. Rule out gastroenteritis. Doubt bacterial enteritis. Doubt IBD. Doubt marginal ulcer postop, but possible. Her elevated troponins are noted. It is possible the nausea could be an anginal equivalent, especially with the rising troponins and elevated d-dimer. Please note, 06/11/2016: CTA chest- negative for PE, but somewhat limited views of pulmonary arteries She recently had an elevated T4, but subsequent TFTs were normal. Her LLQ symptoms certainly could be from her mild diverticulitis. 07/25/2016: *CT ANGIOGRAM OF THE CHEST WITH CONTRAST (CT PULMONARY ANGIOGRAM FOR PE)- No evidence of pulmonary embolism. *As of 07/26/2016, the patient remains hemodynamically stable and afebrile. CM: NSR @ 60. Her vomiting and diarrhea seem to have resolved. There is minimal nausea. She still has some mild LLQ symptoms, probably related to mild left- sided diverticulitis. She remains on IV Unasyn 3 g Q6h. BC/UC- negative. She has been seen by cardiology, and the minimally elevated troponin (peak 0.4), which is resolving, does not seem to suggest cardiac disease, especially in view of her relatively recent negative cardiac workup, done prior to her bariatric surgery. Cardiology advised a repeat echocardiogram. IV heparin was discontinued. She remains on Plavix. 07/25/16: CTA chest- negative for PE. Her major issue is intermittent hypoglycemia, for which she required IV dextrose. *It is possible she could have late dumping syndrome postop. She was started on a stage II bariatric diet with IsoPure protein shake 3 times a day. She is ambulating, without any chest pain, shortness of breath, palpitation, or recurrent syncope. *Please note, 07/24/2016 : + U Tox: +OP/MS 2378, +cannabis 75. *SUGGEST: *Stage II bariatric, low residue diet with IsoPure protein shake 3 times a day. *May switch IV Unasyn 3g Q6h to Cipro 500 mg po BID & Flagyl 500 mg po TID for a total of 10 days of antibiotics. Reglan as needed. Zofran as needed. Empiric PPI. Syncope workup as per medical team. Follow-up with cardiology (await repeat echocardiogram). Stools are OB-negative. Will defer to cardiology regarding continuing Plavix (off IV heparin). DVT prophylaxis. Consider bariatric surgery input. Would check trace elements & repeat thiamine level, in view of recent GJ bypass and syncope. Replete potassium. IV fluids p.r.n. MVI/ bariatric supplements. Continue to separate solids and liquids, to avoid dumping syndrome postop (the patient's hypoglycemia could be from late dumping syndrome, and consider medical vs. endocrine input). As the patient's diarrhea has resolved, there is no stool for culture, Shiga toxin, &/or C. difficile. *Switch to oral analgesics. If upper GI symptoms recur (currently improving), consideration for UGI series > EGD (r/o marginal ulcer). Further recommendations will follow, depending on clinical course. Assuming the patient remains stable, I will sign off on 07/27/2016, with plans for outpatient baseline colonoscopy in 6-8 weeks (i.e.- 09/2016), to clear her colonic mucosa of any colitis or lesions. The patient has my office number. The above was discussed with the medical house staff 07/26/2016. Problem List: 1. Diverticulitis 2. Nausea and vomiting in adult 3. Abdominal pain 4. Diarrhea 5. Gastric bypass status for obesity 6. Liver hemangioma 7. Morbid obesity 8. Elevated troponin Subjective Subjective: 07/25/2016: *CT ANGIOGRAM OF THE CHEST WITH CONTRAST (CT PULMONARY ANGIOGRAM FOR PE)- No evidence of pulmonary embolism. *As of 07/26/2016, the patient remains hemodynamically stable and afebrile. CM: NSR @ 60. Her vomiting and diarrhea seem to have resolved. There is minimal nausea. She still has some mild LLQ symptoms, probably related to mild left- sided diverticulitis. She remains on IV Unasyn 3 g Q6h. BC/UC- negative. She has been seen by cardiology, and the minimally elevated troponin (peak 0.4), which is resolving, does not seem to suggest cardiac disease, especially in view of her relatively recent negative cardiac workup, done prior to her bariatric surgery. Cardiology advised a repeat echocardiogram. IV heparin was discontinued. She remains on Plavix. 07/25/16: CTA chest- negative for PE. Her major issue is intermittent hypoglycemia, for which she required IV dextrose. *It is possible she could have late dumping syndrome postop. She was started on a stage II bariatric diet with IsoPure protein shake 3 times a day. She is ambulating, without any chest pain, shortness of breath, palpitation, or recurrent syncope. *Please note, 07/24/2016 : + U Tox: +OP/MS 2378, +cannabis 75. Review of Systems: Full 14 point review of systems otherwise noncontributory, and as above. Review of Systems Constitutional: Reports: malaise. Denies: chills, diaphoresis, fever, weakness, unexplained weight loss. EENTM: Denies: blurred vision, double vision, visual changes, eye pain, eye drainage, eye tearing, icterus, ear discharge, ear pain, ear redness, hearing changes, nasal congestion, epistaxis, nasal pain, throat pain, throat swelling, mouth pain, tooth pain. 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 Denies: chest pain, edema, orthopena, palpitations, peripheral edema. Respiratory: Reports: short of breath (mild)- *resolved. Denies: cough, hemoptysis, orthopnea, sputum production, stridor, wheezing. GI: Reports: abdominal pain (infraumbilical to LLQ)- improving. Mild nausea. Vomiting & diarrhea- resolved. Denies: bloating, constipation, distention, bowel incontinence, melena, bloody stool, changes in stool, steatorrhea. Genitourinary: Denies: discharge, dysuria, frequency, hematuria, hesitation, nocturia, pain, urgency. Musculoskeletal: Reports: joint pain (DJD). Denies: back pain, gout, joint swelling, muscle pain, muscle stiffness, neck pain. Skin: Denies: cysts, change in skin color, change in hair/nails, dryness, erythema, jaundice, lesions, lymphangitis, lumps, moles, rash. Neurological/Psychological: Denies: anxiety, ataxia, cognitive dysfunction, confusion, depressed, dementia, emotional problems, headache, numbness, paresthesia, pre-existing deficit, petit mal seizures, tingling, tremors, tonic-clonic seizures, unable to move lower ext , unable to move upper ext, weakness. Hematologic/Endocrine: Denies: bruising, bleeding, polyuria, polydipsia. Immunologic/Allergic: Denies: splenectomy, HIV/AIDS, lymphadenopathy. All Other Systems: Reviewed and Negative Objective Vital Signs and I&Os Vital Signs Date Time Temp Pulse Resp B/P B/P Pulse O2 O2 Flow FiO2 Mean Ox Delivery Rate 07/26 1543 98.2 55 18 152/82 98 07/26 0803 98.6 60 18 130/78 98 Room Air 07/26 0000 97 Room Air 07/25 2350 98.1 56 20 118/60 97 Room Air Intake & Output 07/26 1600 07/26 0400 07/25 1600 07/25 0400 07/24 1600 07/24 0400 Intake Total 7507 526 7453 550 1000 Output Total 1000 Balance 2508 524 0003 550 1000 Intake, IV 100 8576 278 6707 Intake, Oral 7566 589 0723 300 Number 0 0 Bowel Movements Output, Urine 1000 Patient 236 lb 238 lb 240 lb 240 lb Weight Weight Standing Scale Chair scale Reported by Patient Measurement Method Physical Exam: Well-developed, well-nourished, obese right handed female, in NAD. Sclera anicteric. Conjunctiva pink. No exophthalmos. No lid lag. Oropharynx clear. No oral thrush. No aphthous ulcers. There is no adenopathy, thyromegaly, or JVD. No peripheral stigmata of inflammatory bowel disease or chronic liver disease on exam. No spiders on the anterior chest wall. breast & pelvic exams: API. No CVA tenderness. Lungs: clear to A&P, with slight decreased BS at the bases B/L. Heart exam: regular rate rhythm, S1 and S2, without any murmur, rubs , or gallops. Abdominal exam: normal bowel sounds, soft obese belly, minimal LLQ tenderness, without guarding or rebound. No mass. No organomegaly. No fluid shift. No pulsatile mass. No epigastric bruit. Old scars. No palpable hernia. Digital rectal exam: deferred by myself, as OB-negative API on 2016. Extremities: without C, C, or E. +DJD. No palpable cords. No palmar erythema. No Dupuytren's contractures. Distal pulses 2+ bilaterally. DTRs 2+ bilaterally. Alert and oriented x 3. No cogwheeling or tremor, post Reglan. No asterixis. CN II-XII intact. Motor 5/5 B/L. Current Medications: Current Medications Sig/Erik Start time Last Medication Dose Route Stop Time Status Admin Acetaminophen 650 MG Q6P PRN 07/24 1745 AC PO Ampicillin Sodium/ 3,000 MG Q6 07/24 1833 AC 07/26 Sulbactam Sodium IV 1804 Sodium Chloride 100 ML Clopidogrel Bisulfate 75 MG DAILY 07/25 1215 AC 07/26 PO 0915 Dextrose 25 GM ONCE ONE 07/26 1600 DC 07/26 IV 07/26 1601 1603 Dextrose 25 GM ONCE ONE 07/26 1145 DC 07/26 IV 07/26 1146 1120 Dextrose 25 GM ONCE ONE 07/26 1015 DC 07/26 IV 07/26 1016 0800 Hydromorphone HCl 0.6 MG Q4P PRN 07/24 1900 AC 07/26 IV 1714 Multivitamins 1 TAB DAILY 07/25 1000 AC 07/26 Therapeutic PO 0915 Omeprazole 40 MG DAILY AC 07/26 0700 AC 07/26 PO 0615 Ondansetron HCl 4 MG Q6P PRN 07/24 1745 AC IV Oxycodone/ 1 TAB Q6P PRN 07/24 1900 AC Acetaminophen PO Patient Medication 1 ED .STK-MED ONE 07/26 1357 MN Teaching ED 07/26 1358 Results Pertinent Lab Results: Laboratory Tests 07/26 07/25 07/25 07/25 0645 1150 1013 0700 Chemistry Sodium (137 - 145 mmol/L) 137 137 Potassium (3.5 - 5.1 mmol/L) 4.1 3.4 L Chloride (98 - 107 mmol/L) 106 106 Carbon Dioxide (22 - 30 mmol/L) 21 L 20 L Anion Gap (5 - 16) 10 11 BUN (7 - 17 mg/dL) 9 10 Creatinine (0.5 - 1.0 mg/dL) 0.6 0.5 Estimated GFR (>60 ml/min) > 60 > 60 BUN/Creatinine Ratio (7 - 25 %) 15.0 20.0 Troponin I (< 0.11 ng/ml) 0.22 *H Coagulation APTT (25 - 37 SEC) 53 H Urines Urinalysis LIGHT H Urine Color (YEL,AMB,STR) YEL Urine Clarity (CLEAR) HAZY H Urine pH (5.0 - 8.0) 6.5 Ur Specific [place] (1.001 - 1.035) 1.025 Urine Protein (NEG,<30 MG/DL) TRACE H Urine Ketones (NEG) 15 H Urine Nitrite (NEG) NEG Urine Bilirubin (NEG) NEG@ICTO Urine Urobilinogen (0.1 - 1.0 EU/dl) 0.2 Ur Leukocyte Esterase (NEG) NEG Ur Microscopic SEDIMENT EXAMINED Urine RBC (0 - 5 /HPF) 15-25 H Urine WBC (0 - 2 /HPF) 10-15 H Ur Epithelial Cells (NONE,FEW) MANY H Urine Bacteria (NEG/NONE) MANY H Urine Hemoglobin (NEG) LARGE H Urine Glucose (N MG/DL) NEG 07/25 07/24 07/24 0010 1830 1422 Chemistry Sodium (137 - 145 mmol/L) 140 Potassium (3.5 - 5.1 mmol/L) 3.8 Chloride (98 - 107 mmol/L) 105 Carbon Dioxide (22 - 30 mmol/L) 17 L Anion Gap (5 - 16) 17 H BUN (7 - 17 mg/dL) 15 Creatinine (0.5 - 1.0 mg/dL) 0.6 Estimated GFR (>60 ml/min) > 60 BUN/Creatinine Ratio (7 - 25 %) 25.0 Glucose (65 - 99 mg/dL) 137 H Lactic Acid (0.7 - 2.1 mmol/L) 1.8 Calcium (8.4 - 10.2 mg/dL) 9.5 Magnesium (1.6 - 2.3 mg/dL) 1.8 Total Bilirubin (0.2 - 1.3 mg/dL) 0.7 Direct Bilirubin (< 0.4 mg/dL) 0.4 AST (14 - 36 U/L) 18 ALT (9 - 52 U/L) 35 Alkaline Phosphatase (<127 U/L) 89 Troponin I (< 0.11 ng/ml) 0.40 *H 0.19 *H 0.08 Total Protein (6.3 - 8.2 g/dL) 7.8 Albumin (3.5 - 5.0 g/dL) 4.6 Globulin (1.9 - 4.2 gm/dL) 3.2 Albumin/Globulin Ratio (1.1 - 2.2 %) 1.4 Amylase (30 - 110 U/L) 47 Lipase (23 - 300 U/L) 103 Total Beta HCG (NEGATIVE) NEGATIVE Hematology CBC w Diff NO MAN DIFF REQ WBC (4.8 - 10.8 /CUMM) 10.4 RBC (4.20 - 5.40 /CUMM) 5.00 Hgb (12.0 - 16.0 G/DL) 15.1 Hct (37 - 47 %) 45.1 MCV (81.0 - 99.0 FL) 90.3 MCH (27.0 - 31.0 PG) 30.2 RDW (11.5 - 14.5 %) 15.6 H Plt Count (130 - 400 /CUMM) 234 MPV (7.4 - 10.4 FL) 10.6 H Gran % (42.2 - 75.2 %) 82.6 H Lymphocytes % (20.5 - 51.1 %) 13.6 L Monocytes % (1.7 - 9.3 %) 3.2 Eosinophils % (0 - 5 %) 0.2 Basophils % (0.0 - 2.0 %) 0.4 Absolute Granulocytes (1.4 - 6.5 /CUMM) 8.6 H Absolute Lymphocytes (1.2 - 3.4 /CUMM) 1.4 Absolute Monocytes (0.10 - 0.60 /CUMM) 0.3 Absolute Eosinophils (0.0 - 0.7 /CUMM) 0 Absolute Basophils (0.0 - 0.2 /CUMM) 0 PUBS MCHC (33.0 - 37.0 G/DL) 33.5 07/24 07/24 1421 1014 Coagulation PT (9.4 - 12.5 SEC) 11.0 INR (0.90 - 1.19) 1.05 APTT (25 - 37 SEC) 32 D-Dimer (70 - 232 ng/ml) 615 H Toxicology Urine Opiates Screen (>2000 NG/ML) 2378.00 H Methadone Screen (>300 NG/ML) < 40 Barbiturate Screen (>200 NG/ML) < 60 Ur Phencyclidine Scrn (>25 NG/ML) < 6.00 Amphetamines Screen (>1000 NG/ML) < 100 U Benzodiazepines Scrn (>200 NG/ML) < 85 Urine Cocaine Screen (>300 NG/ML) < 50 Urine Cannabis Screen (>50 NG/ML) 75.00 H Imaging/Other Studies: 07/24/2016: EKG- SB @ 56, normal axis, borderline prolonged QT interval, QS in III 07/25/2016: EKG- NSR @ 66, old IWMI, prolonged QT interval. 07/24/2016: CT ABD & PELVIS W ORAL & IV CONTRAST- 1. Small focus of diverticulitis involving the distal descending colon. No abscess, free air, or perforation. Normal appendix. Normal small bowel loops. 2. Status post gastric bypass. 3. Status post cholecystectomy. CBD 1 cm postop. No choledocholithiasis. 4. Stable 2 cm hypodensity left lobe liver, previously felt to be a hemangioma (noted on 07/19/2015: sono) 5. Nonobstructive 3 mm stone upper pole of the right kidney. 6. 2.4 cm right adnexal follicular cyst. No ascites. Retroverted uterus. 7. DJD. 07/24/2016: XRY-CHEST XRAY, PA AND LATERAL- No acute abnormality. 07/25/2016: *CT ANGIOGRAM OF THE CHEST WITH CONTRAST (CT PULMONARY ANGIOGRAM FOR PE)- No evidence of pulmonary embolism.
--- NOTE | 2016-07-26 19:51 | ECHOCARDIOGRAM REPORT ---
ANNEMARIE KEE Age: 46 : 1970 Gender: F Exam Date: 07/26/2016 10:41 Exam Location: [address] Ht (in): 68 Wt (lb): 236 BSA: 2.31 BP: 130 / 78 Ordering Physician: DARYL POWERS MD Referring Physician: DARYL POWERS MD Technologist: Tank Martinez [facility] Room Number: 187-1 Indications: Shortness of breath Rhythm: Sinus Technical Quality: Good FINDINGS Left Ventricle Normal global left ventricular size, wall thickness, systolic function with no obvious regional wall motion abnormalities. Normal left ventricular ejection fraction estimated at 60-65%. Right Ventricle Normal right ventricular size and function. Right Atrium Normal right atrial size. Left Atrium Left atrial size at the upper limits of normal. Mitral Valve Structurally normal mitral valve. Trace to mild mitral regurgitation. Aortic Valve Structurally normal trileaflet aortic valve. No aortic stenosis. No aortic regurgitation. Tricuspid Valve Tricuspid valve not well visualized, grossly normal. Trace to mild tricuspid regurgitation. Pulmonic Valve Structurally normal pulmonic valve. Trace pulmonic regurgitation. Pericardium No pericardial effusion. Great Vessels Normal size aortic root and proximal ascending aorta. CONCLUSIONS 1. The aortic valve is trileafle and normal. 2. The mitral valve is anatomically normal with minimal to mild mitral insufficiency. 3. There is no pericardial fluid present. 4. The left ventricular chamber size and systolic function are normal. 6. Minimal to mild tricuspid and pulmonic insufficiency are present with no evidence of pulmonary hypertension. Arianna Crabtree M.D. (Electronically Signed) Final Date: 26 Jul 2016 19:50 MEASUREMENTS (Male / Female) Normal Values 2D ECHO LV Diastolic Diameter PLAX 4.8 cm 4.2 - 5.9 / 3.9 - 5.3 cm LV Systolic Diameter PLAX 2.9 cm 2.1 - 4.0 cm LV Fractional Shortening PLAX 39.6 % 25 - 46 % LV Ejection Fraction 2D Teich 70.0 % IVS Diastolic Thickness 0.9 cm LVPW Diastolic Thickness 0.9 cm LV Relative Wall Thickness 0.4 RV Internal Dim ED PLAX 3.8 cm 1.9 - 3.8 cm LVOT Diameter 2.1 cm Aortic Root Diameter 2.6 cm LA Systolic Diameter LX 4.3 cm 3.0 - 4.0 / 2.7 - 3.8 cm Ascending Aorta Diameter 2.7 cm DOPPLER AV Peak Velocity 175.0 cm/s AV Peak Gradient 12.3 mmHg AV Mean Velocity 110.0 cm/s AV Mean Gradient 6.0 mmHg AV Velocity Time Integral 40.9 cm LVOT Peak Velocity 141.0 cm/s LVOT Peak Gradient 8.0 mmHg LVOT Mean Velocity 84.2 cm/s LVOT Mean Gradient 4.0 mmHg LVOT Velocity Time Integral 34.3 cm LVOT Stroke Volume 118.8 cm AV Area Cont Eq vti 2.9 cm AV Area Cont Eq pk 2.8 cm MV Peak Velocity 112.0 cm/s MV Peak Gradient 5.0 mmHg MV Mean Velocity 60.3 cm/s MV Mean Gradient 2.0 mmHg Mitral E Point Velocity 104.0 cm/s Mitral A Point Velocity 63.2 cm/s Mitral E to A Ratio 1.6 MV PHT Velocity 117.0 cm/s MV Deceleration Yates 431.0 cm/s MV Pressure Half Time 81.4 ms MV Area PHT 2.7 cm MV Deceleration Time 218.0 ms TR Peak Velocity 204.0 cm/s TR Peak Gradient 16.6 mmHg Right Atrial Pressure 5.0 mmHg Pulmonary Artery Systolic Pressu 21.6 mmHg Right Ventricular Systolic Press 21.6 mmHg PV Peak Velocity 119.0 cm/s PV Peak Gradient 5.7 mmHg PV Mean Velocity 78.3 cm/s PV Mean Gradient 3.0 mmHg PV Velocity Time Integral 30.0 cm LV E' Lateral Velocity 13.3 cm/s Mitral E to LV E' Lateral Ratio 7.8 LV E' Septal Velocity 10.1 cm/s Mitral E to LV E' Septal Ratio 10.3
[2016-07-26 22:16] VITALS: BP 132/70
--- NOTE | 2016-07-27 07:20 | PN- Housestaff ---
TRINI ORTIZ 07/27/16 0718: Subjective Follow-up For: - Abdominal discomfort - Nausea and vomiting Complaints: no complaints Tele-Events Since Last Visit: NSR, heart rate 45-69. Subjective: Patient was comfortable this morning. Did not have any complaints. Vitals were stable overnight. During the day yesterday it was noted that the patient had several episodes of hypoglycemia. This a.m., after the patient had yogurt, she was found to be hypoglycemic blood glucose around 50, and heart rate went up to 140-150s associated with diaphoresis. Review of Systems Constitutional: Reports: see HPI. Objective Last 24 Hrs of Vital Signs/I&O Vital Signs Date Time Temp Pulse Resp B/P B/P Pulse O2 O2 Flow FiO2 Mean Ox Delivery Rate 07/26 2216 99.4 65 18 132/70 97 Room Air 07/26 1543 98.2 55 18 152/82 98 07/26 0803 98.6 60 18 130/78 98 Room Air Intake & Output 07/27 0800 07/27 0000 07/26 1600 Intake Total 520 740 Output Total Balance 520 740 Intake, IV 100 Intake, Oral 520 640 Physical Exam General Appearance: No Acute Distress Other Physical Findings: General Appearance- Alert, Oriented X3, Cooperative, No Acute Distress, Mild Distress Skin No Rashes, No Breakdow HEENT Atraumatic, PERRLA, EOMI Neck Supple, No JVD, No thryomegaly Lymphatic Axillary nl, Cervical nl Cardiovascular Regular Rate, Normal S1, Normal S2, No Murmurs Lungs Normal Air Movement Abdomen Normal Bowel Sounds, Soft, No Hepatospenomegaly (epigastric tenderness) Neurological Normal Speech, Strength at 5/5 X4 Ext, Normal Tone, Sensation Intact, Cranial Nerves 3-12 NL, Reflexes 2+ Extremities No Cyanosis, No Edema, Normal Pulses, No Tenderness/Swelling Vascular Pulses Symmetrical Current Medications: Current Medications Sig/Erik Start time Last Medication Dose Route Stop Time Status Admin Acetaminophen 650 MG Q6P PRN 07/24 1745 AC PO Ampicillin Sodium/ 3,000 MG Q6 07/24 1833 AC 07/27 Sulbactam Sodium IV 0653 Sodium Chloride 100 ML Clopidogrel Bisulfate 75 MG DAILY 07/25 1215 AC 07/26 PO 0915 Dextrose 25 GM ONCE ONE 07/27 0645 UNVr 07/27 IV 07/27 0646 0654 Dextrose 25 GM ONCE ONE 07/27 0145 DC 05 IV 07/27 0146 0140 Dextrose 12.5 GM ONCE ONE 07/26 2145 DC 07/26 IV 07/26 2146 2158 Dextrose 25 GM ONCE ONE 07/26 1600 DC 05/ IV 07/26 1601 1603 Dextrose 25 GM ONCE ONE 07/26 1145 DC 05/ IV 07/26 1146 1120 Dextrose 25 GM ONCE ONE 07/26 1015 DC 07/26 IV 07/26 1016 0800 Dextrose/Sodium 1,000 ML Q13H 07/27 0645 UNVr Chloride IV 07/27 1944 Hydromorphone HCl 0.6 MG Q4P PRN 07/24 1900 AC 07/27 IV 0259 Multivitamins 1 TAB DAILY 07/25 1000 AC 07/26 Therapeutic PO 0915 Omeprazole 40 MG DAILY AC 07/26 0700 AC 07/27 PO 0653 Ondansetron HCl 4 MG Q6P PRN 07/24 1745 AC IV Oxycodone/ 1 TAB Q6P PRN 07/24 1900 AC Acetaminophen PO Patient Medication 1 ED .STK-MED ONE 07/26 1357 DE Teaching ED 07/26 1358 Last 24 Hrs of Lab/[place]per Results Last 24 Hrs of Labs/Mics: Laboratory Tests 07/27/16 0610: Sodium Pending, Potassium Pending, Chloride Pending, Carbon Dioxide Pending, Anion Gap Pending, BUN Pending, Creatinine Pending, BUN/Creatinine Ratio Pending Assessment/Plan Assessment: Ms Solorio is a 46-year-old woman who has a past medical history of hypertension, obesity (gastric bypass surgery done recently). She is being evaluated of near loss of consciousness 1 day. Below is the problem list and plan: #1 nausea, vomiting, diarrhea-likely, common etiology is viral gastroenteritis. Since the patient underwent gastric bypass, acute changes in microbiota could possibly cause diarrhea. Also has diverticultitis, for which she is started on Unasyn. Changed antibiotics to by mouth ciprofloxacin and metronidazole for now. Metabolic abnormalities resulting from vomiting and diarrhea are being corrected. Restart low glucose diet w/ protein supplement. 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 Patient found to be hypoglycemic after small sugar load. To check glucose, cortisol, insulin, C- peptide when the patient becomes hypoglycemic blood glucose around 60 mg/dL. Change the diet pattern, with 30 g of complex carbohydrate every meal interspersed by 15 g of carbohydrate snack. To check blood glucose prior to every meal and 2 hours after each meal. Also check blood glucose if the patient becomes symptomatic. Flowchart/alcoholism provided to the nurses. Explained to the patient in detail. This would allow us to #1 as certain if hypoglycemic episodes is indeed hyperinsulinemic as opposed to decreasing counterregulatory hormones such as cortisol/growth hormone. Discussed in great detail with the auto garage attendant and Dr. Landaverde. #2 hypertension- Currently off medications. #3 presyncope-monitor the patient on telemetry. Monitor for arrhythmias, heart block. Elevated troponins w/ non specific T wave changes. Initially started on iv heparin, which was discontinued after speaking to Dr. Crabtree. Pt was already given aspirin, but plan to start on plavix in view of gastric bypass and increase incidence of ulcers. Discussed w/ Dr Borges who is agreeable to have the pt on plavix. #4 DVT prophylaxis-pharmacological. #5 pain management-currently on intravenous hydromorphone. To change the medication to by mouth in the a.m. Problem List: 1. Elevated troponin 2. Gastric bypass status for obesity 3. Diarrhea Pain Ratin Pain Location: abdomen Pain Goal: Pain 4 or less Pain Plan: dilaudid [facility] & Rationales: cbc janellp CHUCK SEAMAN,MAYANK 07/27/16 1235: Attending MD Review Statement Attending Statement Attending MD Statement: examined this patient, discuss w/resident/PA/EDUCATION SUPERVISOR, agreed w/resident/PA/EDUCATION SUPERVISOR, reviewed EMR data (avail), discussed with nursing, discussed with case mgmt, amended to note Attending Assessment/Plan: Patient seen and examined, not feeling well. This morning she developed hypoglycemia after she ate and also became tachycardic showing signs of late dumping syndrome. She has had couple of episodes of bradycardia also overnight. She has hypokalemia and hypomagnesemia. Vital Signs Date Time Temp Pulse Resp B/P B/P Pulse O2 O2 Flow FiO2 Mean Ox Delivery Rate 07/27 0820 98.4 60 18 140/72 97 Room Air 07/26 2216 99.4 65 18 132/70 97 Room Air 07/26 1543 98.2 55 18 152/82 98 on exam; aox3, nad. cv; s1,s2, rrr resp; clear abd; soft, nt, bs+ ext; no edema. Laboratory Tests 07/27 0610 Chemistry Sodium (137 - 145 mmol/L) 138 Potassium (3.5 - 5.1 mmol/L) 3.6 Chloride (98 - 107 mmol/L) 104 Carbon Dioxide (22 - 30 mmol/L) 25 Anion Gap (5 - 16) 9 BUN (7 - 17 mg/dL) 9 Creatinine (0.5 - 1.0 mg/dL) 0.6 Estimated GFR (>60 ml/min) > 60 BUN/Creatinine Ratio (7 - 25 %) 15.0 Magnesium (1.6 - 2.3 mg/dL) 1.5 L A/P; 46 F with pmh sig for morbid obesity s/p laparoscopic gastric bypass on with hiatal hernia repair, who lost about 50 pounds post surgery, history of hypertension, GERD, admitted with abdominal pain, nausea, vomiting, diarrhea secondary to acute diverticulitis. Patient also had positive troponins likely secondary to demand ischemia. Now showing signs of late dumping syndrome. Also has hypokalemia and hypomagnesemia. Becoming hypoglycemic frequently. At this point I discussed with Dr. Landaverde from bariatric surgery. He recommends stage V bariatric diet. He recommends low sugars as sugar will produce symptoms of dumping syndrome. Will consult endocrinology. Initially started the fluids to D5 but at this point we'll stop it after we spoke with endocrinology. Please replete her potassium and magnesium. Antibiotics have been switched to oral. DVT prophylaxis: Please start the patient on Lovenox for DVT prophylaxis. Not ready for discharge yet.
[2016-07-27 08:20] VITALS: BP 140/72
--- NOTE | 2016-07-27 08:37 | PN- Gastroenterology ---
Assessment/Plan Assessment/Recommendations: 46-year-old female, hypertensive, non-diabetic, non-hyperlipidemic, mild ALLAN, DJD, low Vit D, post 01/18/2016: lap CCKY for cholelithiasis prior to gastric bypass. 05/16/2016: Lap gastrojejunal bypass & lap HH repair per Dr. Kennedy. 05/17/2016: Postop UGI series without leak. The patient reportedly had a preop EGD by her previous bariatric surgeon, Dr. Escobedo, that was reportedly "normal " except for the hiatal hernia (I cannot locate the EGD report). She has not had a colonoscopy. The patient's BMI was 46 preoperatively. She went from 288 pounds to 238 pounds postop and is 5'8". Aside from both of the patient's parents being alcoholics, there is no family history of any inherited liver disease, GI malignancy, or GI disease. The patient claimed a preop Persantine thallium done in 10/2015 in [place] [address] Dr. Crabtree was "normal." The patient went to the [facility] 06/19/2016, with nausea, vomiting, diarrhea, infraumbilical abdominal pain, and questionable syncope. Labs then showed normal CBC, normal CMP (except for a mildly decreased bicarbonate), normal amylase, normal lipase, troponin negative, serum hCG negative. 06/19/2016: CTA chest/CT AP with IV/po contrast- suboptimal view of pulmonary arteries, tiny opacities RML/RLL (felt to be postinflammatory), left hepatic hemangioma ( previously noted on ultrasound), stable right renal stone without hydronephrosis , otherwise stable post GJ bypass. The patient was sent from the ER on Zofran. The patient returned to the [facility] 07/24/2016, depending of similar symptoms of nausea, vomiting, diarrhea, infraumbilical abdominal pain, and questionable syncope. Her GI symptoms were unrelated to po intake. She denied any preceding recent travel, recent antibiotics, NSAID use, aspirin, or raw food ingestion. She was advancing her bariatric diet. She claimed she was solids and liquids, to avoid dumping syndrome. The vomitus was nonbilious, as expected post-GJ bypass, and was mostly clear & frothy. There was no hematemesis or melena. She had early satiety as expected postoperatively. There was no blood or mucus in the stool. She denied any constipation, obstipation, or tenesmus. She denied any rashes or acute arthralgias, aside from her DJD. She was taking bariatric supplements. She otherwise is on no outpatient medications. She denied any GERD, odynophagia, dysphagia, chest pain, pleuritic pain, or hemoptysis. She had mild shortness of breath. She denied any fevers, chills, jaundice, GENETIC SCIENTIST symptoms, URI symptoms, dysuria, frequency, air in the urine, or feces in the urine. She was recently informed of an elevated T4 in 05/2016. Her infraumbilical pain "6 0 out of 10," seemed to radiate to the LLQ. She claimed she vomited 20 times DOG BARBER. The diarrhea was only a few times. There was no history of incontinence. She is somewhat vague about the syncope. There was no LOC or seizure. She denied any palpitations or focal neurologic deficits. She is right-handed. She reportedly had a normal exam at her bariatric surgeon 1 week DOG BARBER. Upon arrival to the [facility] 07/24/2016, a little after 2 PM, BP 175/85, P 58, T 98.7, R 20, O2 sat RA 100%. She was described as pale and dehydrated. Fingerstick showed glucose 117. She was given IV normal saline, morphine, sulfa , nitroglycerin, aspirin 325 mg, Zofran, Reglan, Lovenox, multivitamin, and Tylenol. 06/13/2016: low normal thiamine 92, normal iron studies with ferritin 73.4, B12 905, folate 19, low vitamin D 28.9. Imaging studies suggestive of diverticulitis in the lower left colon (see below) , & the patient was started on IV Unasyn 3g Q6h. She was admitted to telemetry. Her admission labs were relatively stable, however she bumped up her troponin and was given Plavix and IV heparin, in addition to the aspirin. The patient currently looks comfortable, but is receiving narcotic analgesics every 4 hours. 07/23/2016: Normal TFTs with normal TSH 1.28 07/24/2016: BCx 2- negative x 1 day. 07/25/2016: UC- negative x 1 day. 07/24/2016: WBC 10.4 (83% gran/9 gran Ab), H/H 15.1/45.1, normal MCV 90.3, RDW 15.6, PLT 234, *elevated D-dimer 615, PT 11, INR 1.05, PTT 32, glucose 137, BUN/ Cr 15/0.6, GFR > 60, normal electrolytes except bicarbonate 17 with anion gap 17 , normal lactate 1.8, normal amylase/lipase 47/103, Mg 1.8, Ca 9.5, normal LFTs, including albumin 4.6, globulin 3.2, *troponin 0.08, serum hCG- negative. 07/24/2016: *U Tox: +OP/MS 2378, +cannabis 75. 07/25/2016: troponin .19, .40, .22 07/24/2016: EKG- SB @ 56, normal axis, borderline prolonged QT interval, QS in III 07/25/2016: EKG- NSR @ 66, old IWMI, prolonged QT interval. 07/24/2016: CT ABD & PELVIS W ORAL & IV CONTRAST- 1. Small focus of diverticulitis involving the distal descending colon. No abscess, free air, or perforation. Normal appendix. Normal small bowel loops. 2. Status post gastric bypass. 3. Status post cholecystectomy. CBD 1 cm postop. No choledocholithiasis. 4. Stable 2 cm hypodensity left lobe liver, previously felt to be a hemangioma (noted on 07/19/2015: sono) 5. Nonobstructive 3 mm stone upper pole of the right kidney. 6. 2.4 cm right adnexal follicular cyst. No ascites. Retroverted uterus. 7. DJD. 07/24/2016: XRY-CHEST XRAY, PA AND LATERAL- No acute abnormality. *The patient has mild lower left colon diverticulitis by admission CT. Her GJ bypass is intact. Her nausea, vomiting and mild diarrhea could be postop in nature and adaptation to her bariatric diet. Rule out dumping syndrome. Rule out gastroenteritis. Doubt bacterial enteritis. Doubt IBD. Doubt marginal ulcer postop, but possible. Her elevated troponins are noted. It is possible the nausea could be an anginal equivalent, especially with the rising troponins and elevated d-dimer. Please note, 06/11/2016: CTA chest- negative for PE, but somewhat limited views of pulmonary arteries She recently had an elevated T4, but subsequent TFTs were normal. Her LLQ symptoms certainly could be from her mild diverticulitis. 07/25/2016: *CT ANGIOGRAM OF THE CHEST WITH CONTRAST (CT PULMONARY ANGIOGRAM FOR PE)- No evidence of pulmonary embolism. *As of 07/26/2016, the patient remains hemodynamically stable and afebrile. CM: NSR @ 60. Her vomiting and diarrhea seem to have resolved. There is minimal nausea. She still has some mild LLQ symptoms, probably related to mild left- sided diverticulitis. She remains on IV Unasyn 3 g Q6h. BC/UC- negative. She has been seen by cardiology, and the minimally elevated troponin (peak 0.4), which is resolving, does not seem to suggest cardiac disease, especially in view of her relatively recent negative cardiac workup, done prior to her bariatric surgery. Cardiology advised a repeat echocardiogram. IV heparin was discontinued. She remains on Plavix. 07/25/16: CTA chest- negative for PE. Her major issue is intermittent hypoglycemia, for which she required IV dextrose. *It is possible she could have late dumping syndrome postop. She was started on a stage II bariatric diet with IsoPure protein shake 3 times a day. She is ambulating, without any chest pain, shortness of breath, palpitation, or recurrent syncope. Please note, 2016: + U Tox: +OP/MS 2378, +cannabis 75. 07/26/2016: ECHOCARDIOGRAM- 1. The aortic valve is trileafle and normal. 2. The mitral valve is anatomically normal with minimal to mild mitral insufficiency. 3. There is no pericardial fluid present. 4. The left ventricular chamber size and systolic function are normal, with LVEF 60-65%. 5. Minimal to mild tricuspid and pulmonic insufficiency are present with no evidence of pulmonary hypertension. *As of 07/27/2016, the patient remains clinically stable regarding her mild left -sided diverticulitis. She is hemodynamically stable, with Tm 99.4. She is tolerating a stage II bariatric diet. Her major issues are intermittent hypoglycemia to the mid 50's, most episodes of which are asymptomatic and incidentally found. She is ambulating and receiving D51/2 NS @ 75 cc/hr. 2016: ECHO- normal LVEF 60-65%, without wall motion abnormalities. There are no other new issues. *SUGGEST: *Stage II bariatric, low residue diet with IsoPure protein shake 3 times a day. *May switch IV Unasyn 3g Q6h to Cipro 500 mg po BID & Flagyl 500 mg po TID for a total of 10 days of antibiotics. Reglan as needed. Zofran as needed. Empiric PPI. Syncope workup as per medical team. Follow-up with cardiology (07/26/2016: *Echocardiogram- stable). Stools are OB-negative. Will defer to cardiology regarding continuing Plavix (off IV heparin). DVT prophylaxis. Consider bariatric surgery input. Would check trace elements & repeat thiamine level, in view of recent GJ bypass and syncope. Replete potassium (done). IV fluids p.r.n- currently D51/2 NS @ 75 cc/hr. MVI/bariatric supplements. Continue to separate solids and liquids, to avoid dumping syndrome postop (the patient's hypoglycemia could be from late dumping syndrome, and consider medical vs. endocrine input- may benefit from small feeds at shorter intervals). As the patient's diarrhea has resolved, there is no stool for culture, Shiga toxin, &/ or C. difficile. *Switch to oral analgesics (please note + admission U Tox for OP/MS/cannabis). If upper GI symptoms recur (currently improved), consideration for UGI series > EGD (r/o marginal ulcer). As the patient remains stable, I will sign off today, 07/27/2016, with plans for outpatient baseline colonoscopy in 6-8 weeks (i.e.- 09/2016), to clear her colonic mucosa of any colitis or lesions. The patient has my office number. Her mild left-sided diverticulitis is stable, and her major issues at present are the intermittent episodes of hypoglycemia, most of which are asymptomatic. The above was discussed with the medical house staff again on 07/27/2016. Problem List: 1. Diverticulitis 2. Abdominal pain 3. Gastric bypass status for obesity 4. Nausea and vomiting in adult 5. Liver hemangioma 6. Morbid obesity 7. Diarrhea 8. Elevated troponin Subjective Subjective: 07/26/2016: ECHOCARDIOGRAM- 1. The aortic valve is trileafle and normal. 2. The mitral valve is anatomically normal with minimal to mild mitral insufficiency. 3. There is no pericardial fluid present. 4. The left ventricular chamber size and systolic function are normal, with LVEF 60-65%. 5. Minimal to mild tricuspid and pulmonic insufficiency are present with no evidence of pulmonary hypertension. *As of 07/27/2016, the patient remains clinically stable regarding her mild left -sided diverticulitis. She is hemodynamically stable, with Tm 99.4. She is tolerating a stage II bariatric diet. Her major issues are intermittent hypoglycemia to the mid 50's, most episodes of which are asymptomatic and incidentally found. She is ambulating and receiving D51/2 NS @ 75 cc/hr. 2016: ECHO- normal LVEF 60-65%, without wall motion abnormalities. There are no other new issues. Review of Systems: Full 14 point review of systems otherwise noncontributory, and as above. Review of Systems Constitutional: Reports: malaise. Denies: chills, diaphoresis, fever, weakness, unexplained weight loss. EENTM: Denies: blurred vision, double vision, visual changes, eye pain, eye drainage, eye tearing, icterus, ear discharge, ear pain, ear redness, hearing changes, nasal congestion, epistaxis, nasal pain, throat pain, throat swelling, mouth pain, tooth pain. Cardiovascular: Reports: syncope DOG BARBER- *no recurrence. Denies: chest pain, edema, orthopena, palpitations, peripheral edema. Respiratory: Reports: mild short of breath DOG BARBER- *resolved. Denies: cough, hemoptysis, orthopnea, sputum production, stridor, wheezing. GI: Reports: abdominal pain (infraumbilical to LLQ)- *improved. Mininmal nausea. Vomiting & diarrhea- *resolved. Denies: bloating, constipation, distention, bowel incontinence, melena, bloody stool, changes in stool, steatorrhea. Genitourinary: Denies: discharge, dysuria, frequency, hematuria, hesitation, nocturia, pain, urgency. Musculoskeletal: Reports: joint pain (DJD). Denies: back pain, gout, joint swelling, muscle pain, muscle stiffness, neck pain. Skin: Denies: cysts, change in skin color, change in hair/nails, dryness, erythema, jaundice, lesions, lymphangitis, lumps, moles, rash. Neurological/Psychological: Denies: anxiety, ataxia, cognitive dysfunction, confusion, depressed, dementia, emotional problems, headache, numbness, paresthesia, pre-existing deficit, petit mal seizures, tingling, tremors, tonic-clonic seizures, unable to move lower ext , unable to move upper ext, weakness. Hematologic/Endocrine: Denies: bruising, bleeding, polyuria, polydipsia. Immunologic/Allergic: Denies: splenectomy, HIV/AIDS, lymphadenopathy. All Other Systems: Reviewed and Negative Objective Vital Signs and I&Os Vital Signs Date Time Temp Pulse Resp B/P B/P Pulse O2 O2 Flow FiO2 Mean Ox Delivery Rate 07/27 08 98.4 60 18 140/72 97 Room Air 07/26 2216 99.4 65 18 132/70 97 Room Air 07/26 1543 98.2 55 18 152/82 98 Intake & Output 07/27 1600 07/27 0400 07/26 1600 07/26 0400 07/25 1600 07/25 0400 Intake Total 757 042 0983 340 2330 550 Output Total 1000 Balance 604 196 8768 340 1330 550 Intake, IV 407 040 2534 250 Intake, Oral 221 698 3449 340 1080 300 Number 0 0 Bowel Movements Output, Urine 1000 Patient 236 lb 238 lb 240 lb Weight Weight Standing Scale Chair scale Reported by Patient Measurement Method Physical Exam: Well-developed, well-nourished, obese right handed female, in NAD. Sclera anicteric. Conjunctiva pink. No exophthalmos. No lid lag. Oropharynx clear. No oral thrush. No aphthous ulcers. There is no adenopathy, thyromegaly, or JVD. No peripheral stigmata of inflammatory bowel disease or chronic liver disease on exam. No spiders on the anterior chest wall. breast & pelvic exams: API. No CVA tenderness. Lungs: clear to A&P, with slight decreased BS at the bases B/L. Heart exam: regular rate rhythm, S1 and S2, without any murmur, rubs , or gallops. Abdominal exam: normal bowel sounds, soft obese belly, scant LLQ tenderness, without guarding or rebound. No mass. No organomegaly. No fluid shift. No pulsatile mass. No epigastric bruit. Old scars. No palpable hernia. Digital rectal exam: deferred by myself, as OB-negative API on 2016. Extremities: without C, C, or E. +DJD. No palpable cords. No palmar erythema. No Dupuytren's contractures. Distal pulses 2+ bilaterally. DTRs 2+ bilaterally. Alert and oriented x 3. No cogwheeling or tremor, post Reglan. No asterixis. CN II-XII intact. Motor 5/5 B/L. Current Medications: Current Medications Sig/Erik Start time Last Medication Dose Route Stop Time Status Admin Acetaminophen 650 MG Q6P PRN 07/24 1745 AC PO Ampicillin Sodium/ 3,000 MG Q6 07/24 1833 DC 07/27 Sulbactam Sodium IV 0653 Sodium Chloride 100 ML Ciprofloxacin 250 MG BID 07/27 1000 AC PO 07/31 0959 Clopidogrel Bisulfate 75 MG DAILY 07/25 1215 AC 07/26 PO 0915 Dextrose 25 GM ONCE ONE 07/27 0645 DC 07/27 IV 07/27 0646 0654 Dextrose 25 GM ONCE ONE 07/27 0145 DC 07/27 IV 07/27 0146 0140 Dextrose 12.5 GM ONCE ONE 07/26 2145 DC 07/26 IV 07/26 2146 2158 Dextrose 25 GM ONCE ONE 07/26 1600 DC 05 IV 07/26 1601 1603 Dextrose 25 GM ONCE ONE 07/26 1145 DC 05/ IV 07/26 1146 1120 Dextrose 25 GM ONCE ONE 07/26 1015 DC 05/ IV 04 1016 0800 Dextrose/Sodium 1,000 ML Q13H 07/27 0645 AC 07/27 Chloride IV 07/27 1944 0824 Hydromorphone HCl 0.6 MG Q4P PRN 07/24 1900 AC 07/27 IV 0824 Metronidazole 500 MG Q8 07/27 0841 AC PO Multivitamins 1 TAB DAILY 07/25 1000 AC 07/26 Therapeutic PO 0915 Omeprazole 40 MG DAILY AC 07/26 0700 AC 07/27 PO 0653 Ondansetron HCl 4 MG Q6P PRN 07/24 1745 AC IV Oxycodone/ 1 TAB Q6P PRN 07/24 1900 AC Acetaminophen PO Patient Medication 1 ED .STK-MED ONE 07/26 1357 DC Teaching ED 07/26 1358 Results Pertinent Lab Results: Laboratory Tests 07/27 07/26 05 05/ 0610 0645 1150 1013 Chemistry Sodium (137 - 145 mmol/L) 138 137 Potassium (3.5 - 5.1 mmol/L) 3.6 4.1 Chloride (98 - 107 mmol/L) 104 106 Carbon Dioxide (22 - 30 mmol/L) 25 21 L Anion Gap (5 - 16) 9 10 BUN (7 - 17 mg/dL) 9 9 Creatinine (0.5 - 1.0 mg/dL) 0.6 0.6 Estimated GFR (>60 ml/min) > 60 > 60 BUN/Creatinine Ratio (7 - 25 %) 15.0 15.0 Coagulation APTT (25 - 37 SEC) 53 H Urines Urinalysis LIGHT H Urine Color (YEL,AMB,STR) YEL Urine Clarity (CLEAR) HAZY H Urine pH (5.0 - 8.0) 6.5 Ur Specific [place] (1.001 - 1.035) 1.025 Urine Protein (NEG,<30 MG/DL) TRACE H Urine Ketones (NEG) 15 H Urine Nitrite (NEG) NEG Urine Bilirubin (NEG) NEG@ICTO Urine Urobilinogen (0.1 - 1.0 EU/dl) 0.2 Ur Leukocyte Esterase (NEG) NEG Ur Microscopic SEDIMENT EXAMINED Urine RBC (0 - 5 /HPF) 15-25 H Urine WBC (0 - 2 /HPF) 10-15 H Ur Epithelial Cells (NONE,FEW) MANY H Urine Bacteria (NEG/NONE) MANY H Urine Hemoglobin (NEG) LARGE H Urine Glucose (N MG/DL) NEG 07/25 07/25 07/24 0700 0010 1830 Chemistry Sodium (137 - 145 mmol/L) 137 Potassium (3.5 - 5.1 mmol/L) 3.4 L Chloride (98 - 107 mmol/L) 106 Carbon Dioxide (22 - 30 mmol/L) 20 L Anion Gap (5 - 16) 11 BUN (7 - 17 mg/dL) 10 Creatinine (0.5 - 1.0 mg/dL) 0.5 Estimated GFR (>60 ml/min) > 60 BUN/Creatinine Ratio (7 - 25 %) 20.0 Troponin I (< 0.11 ng/ml) 0.22 *H 0.40 *H 0.19 *H 07/24 07/24 07/24 1422 1421 1014 Chemistry Sodium (137 - 145 mmol/L) 140 Potassium (3.5 - 5.1 mmol/L) 3.8 Chloride (98 - 107 mmol/L) 105 Carbon Dioxide (22 - 30 mmol/L) 17 L Anion Gap (5 - 16) 17 H BUN (7 - 17 mg/dL) 15 Creatinine (0.5 - 1.0 mg/dL) 0.6 Estimated GFR (>60 ml/min) > 60 BUN/Creatinine Ratio (7 - 25 %) 25.0 Glucose (65 - 99 mg/dL) 137 H Lactic Acid (0.7 - 2.1 mmol/L) 1.8 Calcium (8.4 - 10.2 mg/dL) 9.5 Magnesium (1.6 - 2.3 mg/dL) 1.8 Total Bilirubin (0.2 - 1.3 mg/dL) 0.7 Direct Bilirubin (< 0.4 mg/dL) 0.4 AST (14 - 36 U/L) 18 ALT (9 - 52 U/L) 35 Alkaline Phosphatase (<127 U/L) 89 Troponin I (< 0.11 ng/ml) 0.08 Total Protein (6.3 - 8.2 g/dL) 7.8 Albumin (3.5 - 5.0 g/dL) 4.6 Globulin (1.9 - 4.2 gm/dL) 3.2 Albumin/Globulin Ratio (1.1 - 2.2 %) 1.4 Amylase (30 - 110 U/L) 47 Lipase (23 - 300 U/L) 103 Total Beta HCG (NEGATIVE) NEGATIVE Coagulation PT (9.4 - 12.5 SEC) 11.0 INR (0.90 - 1.19) 1.05 APTT (25 - 37 SEC) 32 D-Dimer (70 - 232 ng/ml) 615 H Hematology CBC w Diff NO MAN DIFF REQ WBC (4.8 - 10.8 /CUMM) 10.4 RBC (4.20 - 5.40 /CUMM) 5.00 Hgb (12.0 - 16.0 G/DL) 15.1 Hct (37 - 47 %) 45.1 MCV (81.0 - 99.0 FL) 90.3 MCH (27.0 - 31.0 PG) 30.2 RDW (11.5 - 14.5 %) 15.6 H Plt Count (130 - 400 /CUMM) 234 MPV (7.4 - 10.4 FL) 10.6 H Gran % (42.2 - 75.2 %) 82.6 H Lymphocytes % (20.5 - 51.1 %) 13.6 L Monocytes % (1.7 - 9.3 %) 3.2 Eosinophils % (0 - 5 %) 0.2 Basophils % (0.0 - 2.0 %) 0.4 Absolute Granulocytes (1.4 - 6.5 /CUMM) 8.6 H Absolute Lymphocytes (1.2 - 3.4 /CUMM) 1.4 Absolute Monocytes (0.10 - 0.60 /CUMM) 0.3 Absolute Eosinophils (0.0 - 0.7 /CUMM) 0 Absolute Basophils (0.0 - 0.2 /CUMM) 0 PUBS MCHC (33.0 - 37.0 G/DL) 33.5 Toxicology Urine Opiates Screen (>2000 NG/ML) 2378.00 H Methadone Screen (>300 NG/ML) < 40 Barbiturate Screen (>200 NG/ML) < 60 Ur Phencyclidine Scrn (>25 NG/ML) < 6.00 Amphetamines Screen (>1000 NG/ML) < 100 U Benzodiazepines Scrn (>200 NG/ML) < 85 Urine Cocaine Screen (>300 NG/ML) < 50 Urine Cannabis Screen (>50 NG/ML) 75.00 H Imaging/Other Studies: 07/24/2016: EKG- SB @ 56, normal axis, borderline prolonged QT interval, QS in III 07/25/2016: EKG- NSR @ 66, old IWMI, prolonged QT interval. 07/24/2016: CT ABD & PELVIS W ORAL & IV CONTRAST- 1. Small focus of diverticulitis involving the distal descending colon. No abscess, free air, or perforation. Normal appendix. Normal small bowel loops. 2. Status post gastric bypass. 3. Status post cholecystectomy. CBD 1 cm postop. No choledocholithiasis. 4. Stable 2 cm hypodensity left lobe liver, previously felt to be a hemangioma (noted on 07/19/2015: sono) 5. Nonobstructive 3 mm stone upper pole of the right kidney. 6. 2.4 cm right adnexal follicular cyst. No ascites. Retroverted uterus. 7. DJD. 07/24/2016: XRY-CHEST XRAY, PA AND LATERAL- No acute abnormality. 07/25/2016: *CT ANGIOGRAM OF THE CHEST WITH CONTRAST (CT PULMONARY ANGIOGRAM FOR PE)- No evidence of pulmonary embolism. 07/26/2016: ECHOCARDIOGRAM- 1. The aortic valve is trileafle and normal. 2. The mitral valve is anatomically normal with minimal to mild mitral insufficiency. 3. There is no pericardial fluid present. 4. The left ventricular chamber size and systolic function are normal, with LVEF 60-65%. 5. Minimal to mild tricuspid and pulmonic insufficiency are present with no evidence of pulmonary hypertension.
--- NOTE | 2016-07-27 11:33 | PN- Cardiology ---
Subjective Subjective: Interval history: This morning the patient reports an episode of sweating, nausea, dizziness and mild palpitations. She was noted to have an episode of tachycardia bradycardia on telemetry monitoring. Coincidentally, this also happened after she did have 2 tablespoons of yogurt. She denies any persistent, new onset blurred vision, headache, chest pain, persistent palpitations or shortness of breath at this time. Episode of bradycardia on telemetry this morning. EKG did show what appears to be PACs rather than heart block. Review of Systems Constitutional: Reports: see HPI. EENTM: Reports: no symptoms. Cardiovascular: Reports: see HPI. Respiratory: Reports: see HPI. Gastrointestinal: Reports: see HPI. Musculoskeletal: Reports: see HPI. Objective Vital Signs and I&Os Vital Signs Date Time Temp Pulse Resp B/P B/P Pulse O2 O2 Flow FiO2 Mean Ox Delivery Rate 07/28 819 98.4 60 18 140/72 97 Room Air 07/26 2216 99.4 65 18 132/70 97 Room Air 07/26 1543 98.2 55 18 152/82 98 Intake & Output 07/27 1600 07/27 0800 07/27 0000 07/26 1600 07/26 0800 07/26 0000 Intake Total 540 520 740 640 340 Output Total Balance 540 520 740 640 340 Intake, IV 240 100 Intake, Oral 300 520 640 640 340 Patient 236 lb Weight Weight Standing Scale Measurement Method Physical Exam General Appearance: alert, anxious Head: normal appearance Ears, Nose, Throat: hearing grossly normal Respiratory: no respiratory distress, decreased breath sounds Cardiovascular: regular rate/rhythm, 1+ pitting edema bilateral lower extremities Abdomen: normal bowel sounds, soft, slight discomfort elicited on palpation over the epigastric region Extremities: 1+ pitting edema bilateral lower extremities Current Medications: Current Medications Sig/Erik Start time Last Medication Dose Route Stop Time Status Admin Acetaminophen 650 MG Q6P PRN 07/24 1745 AC PO Ampicillin Sodium/ 3,000 MG Q6 07/24 1833 DC 07/27 Sulbactam Sodium IV 0653 Sodium Chloride 100 ML Ciprofloxacin 250 MG BID 07/27 1000 AC 07/27 PO 07/31 0959 0940 Clopidogrel Bisulfate 75 MG DAILY 07/25 1215 AC 07/27 PO 0940 Dextrose 25 GM ONCE ONE 07/27 0645 DC 07/27 IV 07/27 0646 0654 Dextrose 25 GM ONCE ONE 07/27 0145 DC 05 IV 07/27 0146 0140 Dextrose 12.5 GM ONCE ONE 07/26 2145 DC / IV 07/26 2146 2158 Dextrose 25 GM ONCE ONE 07/26 1600 DC / IV 07/26 1601 1603 Dextrose 25 GM ONCE ONE 07/26 1145 DC 05/ IV 07/26 1146 1120 Dextrose/Sodium 1,000 ML Q13H 07/27 0645 DC 07/27 Chloride IV 07/27 1644 0824 Hydromorphone HCl 0.6 MG Q4P PRN 07/24 1900 AC 07/27 IV 0824 Magnesium Sulfate 1 GM Q2H 07/27 1030 AC 07/27 Dextrose/Water 100 ML IV 07/27 1429 1133 Metronidazole 500 MG Q8 07/27 0841 AC 07/27 PO 0940 Multivitamins 1 TAB DAILY 07/25 1000 AC 07/27 Therapeutic PO 0940 Omeprazole 40 MG DAILY AC 07/26 0700 AC 07/27 PO 0653 Ondansetron HCl 4 MG Q6P PRN 07/24 1745 AC IV Oxycodone/ 1 TAB Q6P PRN 07/24 1900 AC Acetaminophen PO Patient Medication 1 ED .STK-MED ONE 07/26 1357 DC Teaching ED 07/26 1358 Potassium Chloride 20 MEQ Q10H 07/27 1030 DC Dextrose/Sodium 1,000 ML IV 07/27 2029 Chloride Results Last 48 Hrs of Labs/Mics: Laboratory Tests 07/27/16 0610: Anion Gap 9, Estimated GFR > 60, BUN/Creatinine Ratio 15.0, Magnesium 1.5 L 07/26/16 0645: Anion Gap 10, Estimated GFR > 60, BUN/Creatinine Ratio 15.0 07/25/16 1150: APTT 53 H Assessment/Plan Assessment/Plan 38-year-old lady with a PMH of HTN, obesity S/P gastric bypass surgery who was admitted with complaints of near syncope. Problem list: 1. Nausea, vomiting, diarrhea: Recent gastric bypass surgery 2. Diverticulitis 3. Elevated troponins: No evidence suggestive of cardiac disease at this time or coronary calcification on chest CT. Normal recent pharmacological stress test 4. PACs on telemetry 5. Hypertension 6. Hypomagnesemia 7. Mild Hypokalemia Recommendations: * Telemetry this morning showed a brief run of PVCs. Repeat EKG unremarkable aside from slightly prolonged QTC * In the setting of hypomagnesemia and her current GI symptoms, recommend IV supplementation with mag sulfate 2 * Potassium supplementation > 4.0 * Echocardiogram with normal LVEF and valve function * Check lipid panel for ASCVD classifications and initiation antihyperlipidemic medications if warranted Continue telemetry? Yes
--- NOTE | 2016-07-27 13:52 | Cons- Endocrinology ---
General Information and HPI Consulting Request Date of Consult: 07/27/16 Requested By: medical team Reason for Consult: hypoglycemia s/p gastric bypass done in 04/2016 Source of Information: patient, old records Exam Limitations: no limitations History of Present Illness: 46 female with past medical history significant for morbid obesity s/p laparoscopic gastric bypass on 05/16/2016 with hiatal hernia repair, qapproximately 50 pounds weight loss post surgery, history of hypertension, GERD , was admitted for abdominal pain, nausea, vomiting, diarrhea secondary to acute diverticulitis. Patient also had positive troponins, hypokalemia and hypomagnesemia. After she was started on Bariatric stage V diet, she had hypoglycemia with glucose level in the 50s after she ate Cambodian yogurt which has only 6 grams of sugar. Currently she is on D5NS at 50 ml/hour and her FSGs were 104, 54, 129, 96 and 89. Allergies/Medications Allergies: Coded Allergies: No Known Allergies (01/17/16) Home Med List: Ergocalciferol (Vitamin D2) (Vitamin D2) 50,000 UNIT CAPSULE 1 CAP PO QMON SUPPLEMENT (Reported) Multivitamin (Multi-Day Vitamins) 1 EACH TABLET 1 TAB PO DAILY SUPPLEMENT- BARIATRIC (Reported) Review of Systems Review of Systems Constitutional: Reports: see HPI. Cardiovascular: Denies: chest pain. Respiratory: Denies: short of breath. GI: Reports: abdominal pain. Genitourinary: Denies: dysuria. Hematologic/Endocrine: Denies: polyuria, polydipsia. Past History Travel History Traveled to [place] past 21 day No Medical History Blood Transfusion Hx: No Neurological: NONE EENT: NONE Cardiovascular: hypertension Respiratory: ? mild ALLAN Gastrointestinal: POST OP N/V; GJ bypass Hepatic: hemangioma left lobe liver Renal: nephrolithiasis (on right w/o hydro; ? 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 , Age 60+. MOTHER (EtOH). Age 60+. Relation not specified for: *No pertinent family history Psychosocial History Where Do You Live? Home Who Do You Live With? child Services at Home: None Primary Language: Greenlandic Smoking Status: Never Smoked ETOH Use: denies use (none recently), occasional use Illicit Drug Use: denies illicit drug use Living Will? 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 no Other Social History: Single. Lives with 17 y/o dtr- [employer]. No cigarettes, drugs or EtOH. 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 Functional Ability ADLs Independent: dressing, eating, toileting, bathing. Ambulation: independent IADLs Independent: shopping, housework, finances, food prep, telephone, transportation , medication admin. Employment History Employment: Employed Profession/Employer: [employer] Exam & Diagnostic Data Last 24 Hrs of Vital Signs/I&O Vital Signs Date Time Temp Pulse Resp B/P B/P Pulse O2 O2 Flow FiO2 Mean Ox Delivery Rate 07/27 0820 98.4 60 18 140/72 97 Room Air 07/26 2216 99.4 65 18 132/70 97 Room Air 07/26 1543 98.2 55 18 152/82 98 Intake & Output 07/27 1600 07/27 0800 07/27 0000 Intake Total 540 520 Output Total Balance 540 520 Intake, IV 240 Intake, Oral 300 520 Physical Exam General Appearance: no apparent distress Cardiovascular: regular rate/rhythm Gastrointestinal: soft Extremities: no edema Labs/Prosper Results: Laboratory Tests 07/27 07/26 0610 0645 Chemistry Sodium (137 - 145 mmol/L) 138 137 Potassium (3.5 - 5.1 mmol/L) 3.6 4.1 Chloride (98 - 107 mmol/L) 104 106 Carbon Dioxide (22 - 30 mmol/L) 25 21 L Anion Gap (5 - 16) 9 10 BUN (7 - 17 mg/dL) 9 9 Creatinine (0.5 - 1.0 mg/dL) 0.6 0.6 Estimated GFR (>60 ml/min) > 60 > 60 BUN/Creatinine Ratio (7 - 25 %) 15.0 15.0 Insulin Level (3.0 - 25.0 mIU/mL) 4.1 Magnesium (1.6 - 2.3 mg/dL) 1.5 L Cortisol AM Sample (4.46 - 22.7 ug/dL) Pending Assessment/Plan Assessment/Plan 46 female with past medical history significant for morbid obesity s/p laparoscopic gastric bypass on 05/16/2016 with hiatal hernia repair, qapproximately 50 pounds weight loss post surgery, history of hypertension, GERD , was admitted for abdominal pain, nausea, vomiting, diarrhea secondary to acute diverticulitis. Patient also had positive troponins, hypokalemia and hypomagnesemia. After she was started on Bariatric stage V diet, she had hypoglycemia with glucose level in the 50s after she ate Cambodian yogurt which has only 6 grams of sugar. Hypoglycemia s/p gastric bypass approximately 2 months ago-- etiology unclear at this point. 1. D/C IVF 2. monitor FSGs before each meal, two hours after each meal, bedtime, midnight and 3 am. 3. recommend 3 small meals and 3 snacks between meals; ---complex carbohydrates 30 grams per meal ---complex carbohydrates 15 grams per snack ---encourage eating protein ---avoid simple carbohydrates 4. if FSG is < 60, please draw blood sample stat to check plasma glucose, insulin, c-peptide and random cortisol. will follow. Please let me know if there are any questions. Consult Acknowledgment - Thank you for your consult request.
[2016-07-27 16:37] VITALS: BP 152/80
[2016-07-28 00:21] VITALS: BP 126/70
[2016-07-28 07:56] VITALS: BP 110/80
--- NOTE | 2016-07-28 09:00 | PN- Housestaff ---
See Addendum Subjective Follow-up For: 1.Nausea, vomiting, diarrhea: Recent gastric bypass surgery 2. Elevated troponins: No evidence. Normal recent pharmacological stress test 3. PACs on telemetry 4. Hypertension 5. Hypomagnesemia 6. Mild Hypokalemia Complaints: no complaints Tele-Events Since Last Visit: Sinus Bradycardia 50s-58s non specific ST, T wave changes Subjective: Patient was visted and examined this moning. She denies any chest pain, shortness of breath, palpitation, vomiting and diarrhea, and abdominal pain. Patient had soup last night and tolerated it very well. This morning after having 3 bites of her breakfast she felt nauseous, which resolved after receiving Zofran. The remainder of the review of system was unremarkable. Vital signs were reviewed. Biochemistry: Sodium 138 potassium 3.7 improved from 3.6, magnesium level for this morning insulin level and C-peptide level are pending. Echo in 07/26/2016:Normal global left ventricular size, wall thickness, systolic function with no obvious regional wall motion abnormalities. Normal left ventricular ejection fraction estimated at 60-65%. Review of Systems Constitutional: Reports: no symptoms. EENTM: Reports: no symptoms. Cardiovascular: Reports: no symptoms. Gastrointestinal: Reports: nausea. Denies: abdominal pain, bloating, constipation, diarrhea, distention, bowel incontinence, melena, bloody stool, changes in stool, vomiting , steatorrhea. Genitourinary: Reports: no symptoms. Musculoskeletal: Reports: no symptoms. Skin: Reports: no symptoms. Objective Last 24 Hrs of Vital Signs/I&O Vital Signs Date Time Temp Pulse Resp B/P B/P Pulse O2 O2 Flow FiO2 Mean Ox Delivery Rate 07/28 0756 98.5 58 14 110/80 97 Room Air 07/28 0021 98.2 56 20 126/70 95 Room Air 07/27 1637 98.2 61 18 152/80 99 Room Air Intake & Output 07/28 1600 / 0800 05/ 0000 Intake Total 120 550 Output Total Balance 120 550 Intake, IV 100 Intake, Oral 120 450 Patient 236 lb Weight Physical Exam General Appearance: Alert, Oriented X3, Cooperative Skin: No Rashes HEENT: Atraumatic, PERRLA, EOMI, Mucous Membr. moist/pink Cardiovascular: Normal S1, Normal S2, No Murmurs, Gallops, Rubs Lungs: Clear to Auscultation, Normal Air Movement Abdomen: mild left lower Q abdominal tenderness Neurological: Normal Speech Extremities: No Clubbing, No Cyanosis, No Edema Current Medications: Current Medications Sig/Erik Start time Last Medication Dose Route Stop Time Status Admin Acetaminophen 650 MG Q6P PRN 07/24 1745 AC PO Ciprofloxacin 250 MG BID 07/27 1000 AC 07/28 PO 07/31 0959 0946 Clopidogrel Bisulfate 75 MG DAILY 07/25 1215 AC 07/28 PO 0946 Dextrose/Sodium 1,000 ML Q13H 07/27 0645 DC 07/27 Chloride IV 07/27 1644 0824 Hydromorphone HCl 0.6 MG Q4P PRN 07/24 1900 AC 07/28 IV 0852 Magnesium Sulfate 1 GM Q2H 07/27 1030 DC 07/27 Dextrose/Water 100 ML IV 07/27 1429 1330 Metronidazole 500 MG Q8 07/27 0841 AC 07/28 PO 0601 Multivitamins 1 TAB DAILY 07/25 1000 AC 07/28 Therapeutic PO 0946 Omeprazole 40 MG DAILY AC 07/26 0700 AC 07/28 PO 0601 Ondansetron HCl 4 MG Q6P PRN 07/24 1745 AC 07/28 IV 0819 Oxycodone/ 1 TAB Q6P PRN 07/24 1900 AC Acetaminophen PO Potassium Chloride 40 MEQ ONCE ONE 07/27 1330 DC 07/27 PO 07/27 1331 1407 Potassium Chloride 20 MEQ Q10H 07/27 1030 DC Dextrose/Sodium 1,000 ML IV 07/27 2029 Chloride Last 24 Hrs of Lab/Prosper Results Last 24 Hrs of Labs/Mics: Laboratory Tests 07/28/16 0645: C-Peptide Pending 07/28/16 0645: Anion Gap 12, Estimated GFR > 60, BUN/Creatinine Ratio 16.7, Insulin Level Pending, Magnesium Pending, Cortisol AM Sample 5.3 Assessment/Plan Assessment: Ms Solorio is a 46-year-old woman who has a past medical history of hypertension, obesity (gastric bypass surgery done recently). She is being evaluated of near loss of consciousness 1 day. Below is the problem list and plan: #1 nausea, vomiting, diarrhea-likely, common etiology is viral gastroenteritis. Patient's nausea vomiting and diarrhea improved. Plan is to continue oral ciprofloxacin. Patient's electrolyte abnormality has been repleted, however she remained hypokalemic. We are repleting potassium. Magnesium levels are pending for today. 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 Pending insulin level and C-peptide level and cortisol level #2 hypertension- Currently off medications. #3 presyncope-monitor the patient on telemetry. Monitor for arrhythmias, heart block. Elevated troponins w/ non specific T wave changes. Initially started on iv heparin, which was discontinued after speaking to Dr. Crabtree. Pt was already given aspirin, but plan to start on plavix in view of gastric bypass and increase incidence of ulcers. Discussed w/ Dr Borges who is agreeable to have the pt on plavix. #4 DVT prophylaxis-pharmacological. #5 pain management. Her cassettes 1 tab every 6 as needed for [id number] pain Hydromorphone 0.6 mg IV every 6 for severe pain Problem List: 1. Diverticulosis 2. Elevated troponin 3. Gastric bypass status for obesity 4. Morbid obesity 5. Abdominal pain 6. Nausea and vomiting in adult 7. Diarrhea 8. Syncope Pain Ratin Pain Location: LLQ Pain Goal: Pain 4 or less Pain Plan: Dilaudid and Percocet Tomorrow's Labs & Rationales: BEP
--- NOTE | 2016-07-28 12:30 | PN- Endocrinology ---
Assessment/Plan Assessment: 46 female with past medical history significant for morbid obesity s/p laparoscopic gastric bypass on 05/16/2016 with hiatal hernia repair, qapproximately 50 pounds weight loss post surgery, history of hypertension, GERD , was admitted for abdominal pain, nausea, vomiting, diarrhea secondary to acute diverticulitis. Patient also had positive troponins, hypokalemia and hypomagnesemia. After she was started on Bariatric stage V diet, she had hypoglycemia with glucose level in the 50s after she ate Amharic yogurt which has only 6 grams of sugar. Dx: Hypoglycemia s/p gastric bypass approximately 2 months ago-- etiology unclear at this point. recommended: 1. monitor FSGs before each meal, two hours after each meal, bedtime, midnight and 3 am. 2. recommend 3 small meals and 3 snacks between meals; ---complex carbohydrates 30 grams per meal ---complex carbohydrates 15 grams per snack ---encourage eating protein ---avoid simple carbohydrates 3. if FSG is < 60, please draw blood sample stat to check plasma glucose, insulin, c-peptide and random cortisol. Her FSGs were 96, 89, 90, 89, 99, 103, 82, 74, 93, 82 and 75. Plan: 1. continue the current management; continue monitoring FSGs. will follow. 2. am cortisol was 3.2 and 5.3, which is low. recommend repeating am cortisol and checking ACTH tomorrow morning recommend having ACTH stimulation test done tomorrow morning. Subjective Subjective: Over past 24 hours, her glucose level has been stable. Objective Last 24 Hrs of Vital Signs/I&O Vital Signs Date Time Temp Pulse Resp B/P B/P Pulse O2 O2 Flow FiO2 Mean Ox Delivery Rate 07/28 0756 98.5 58 14 110/80 97 Room Air 07/28 0021 98.2 56 20 126/70 95 Room Air 07/27 1637 98.2 61 18 152/80 99 Room Air Intake & Output 07/28 1600 07/28 0800 / 0000 Intake Total 120 550 Output Total Balance 120 550 Intake, IV 100 Intake, Oral 120 450 Patient 236 lb Weight Results Pertinent Lab/Prosper Results: Laboratory Tests 07/28 07/28 0645 0645 Chemistry Sodium (137 - 145 mmol/L) 138 Potassium (3.5 - 5.1 mmol/L) 3.7 Chloride (98 - 107 mmol/L) 104 Carbon Dioxide (22 - 30 mmol/L) 21 L Anion Gap (5 - 16) 12 BUN (7 - 17 mg/dL) 10 Creatinine (0.5 - 1.0 mg/dL) 0.6 Estimated GFR (>60 ml/min) > 60 BUN/Creatinine Ratio (7 - 25 %) 16.7 Insulin Level (3.0 - 25.0 mIU/mL) Pending C-Peptide Pending Magnesium (1.6 - 2.3 mg/dL) 1.9 Cortisol AM Sample (4.46 - 22.7 ug/dL) 5.3
[2016-07-28 15:30] VITALS: BP 98/58
--- NOTE | 2016-07-28 16:07 | PN- Cardiology ---
Subjective Subjective: The patient's comfortable. No chest pain. No palpitations. No new cardiac complaints. No lightheadedness or dizziness. Objective Vital Signs and I&Os Vital Signs Date Time Temp Pulse Resp B/P B/P Pulse O2 O2 Flow FiO2 Mean Ox Delivery Rate 07/28 0756 98.5 58 14 110/80 97 Room Air 07/28 0021 98.2 56 20 126/70 95 Room Air 07/27 1637 98.2 61 18 152/80 99 Room Air Intake & Output 07/28 1600 07/28 0807/28 0000 07/27 1600 07/27 0807/27 0000 Intake Total 480 120 550 680 540 520 Output Total Balance 480 120 550 680 540 520 Intake, IV 100 200 240 Intake, Oral 480 120 450 480 300 520 Patient 236 lb Weight Physical Exam: Gen: NAD HEENT: normal Lungs: clear to auscultation, normal resp. effort Heart: RRR, S1, S2, no murmurs Abdomen: Soft, nontender, no masses Extremities: 1+ edema Neuro: Alert and oriented x 3, cranial nerves intact Current Medications: Current Medications Sig/Erik Start time Last Medication Dose Route Stop Time Status Admin Acetaminophen 650 MG Q6P PRN 07/24 1745 AC PO Ciprofloxacin 250 MG BID 07/27 1000 AC 07/28 PO 07/31 0959 0946 Clopidogrel Bisulfate 75 MG DAILY 07/25 1215 AC 07/28 PO 0946 Cosyntropin 0.25 MG ONE ONE 07/29 0600 AC IV 07/29 0601 Hydromorphone HCl 0.6 MG Q4P PRN 07/24 1900 AC 07/28 IV 1400 Metronidazole 500 MG Q8 07/27 0841 AC 07/28 PO 1400 Multivitamins 1 TAB DAILY 07/25 1000 AC 07/28 Therapeutic PO 0946 Omeprazole 40 MG DAILY AC 07/26 0700 AC 07/28 PO 0601 Ondansetron HCl 4 MG Q6P PRN 07/24 1745 AC 07/28 IV 0819 Oxycodone/ 1 TAB Q6P PRN 07/24 1900 AC Acetaminophen PO Polyethylene Glycol 17 GM DAILY 07/28 1441 AC PO Potassium Chloride 20 MEQ ONCE ONE 07/28 1545 DC PO 07/28 1546 Potassium Chloride 40 MEQ ONCE ONE 07/28 1015 DC 05/ PO 07/28 1016 1400 Senna/Docusate Sodium 1 TAB BID 07/28 1442 AC PO Results Last 48 Hrs of Labs/Mics: Laboratory Tests 07/28/1645: C-Peptide Pending 07/28/1645: Anion Gap 12, Estimated GFR > 60, BUN/Creatinine Ratio 16.7, Glucose 72, Insulin Level 6.8, Magnesium 1.9, Cortisol AM Sample 5.3 07/27/16 0610: Anion Gap 9, Estimated GFR > 60, BUN/Creatinine Ratio 15.0, Insulin Level 4.1, Magnesium 1.5 L, Cortisol AM Sample 3.2 L Assessment/Plan Assessment/Plan 1. Status post gastric bypass surgery 2. Mild troponin elevation, likely demand ischemia 3. Hypertension 4. Premature atrial contractions 5. Hypokalemia and hypomagnesemia Plan: * Continue current cardiac medications. * Check electrolytes in the morning. Continue telemetry? No
[2016-07-29 00:52] VITALS: BP 138/82
[2016-07-29 07:59] VITALS: BP 120/66
--- NOTE | 2016-07-29 08:46 | PN- Housestaff ---
SHANTA SEAMAN,[facility] 07/29/16 0846: Subjective Follow-up For: 1. Nausea, vomiting, diarrhea: Recent gastric bypass surgery (Apr 2016) 2. Elevated troponins: Demand Ischemia 3. PACs on telemetry 4. Hypertension 5. Hypomagnesemia 6. Mild Hypokalemia Tele-Events Since Last Visit: NSR and SB 55-65, HR 45 @ 5:28 am Subjective: I had a very long conversation with the patient addressing her concerns regarding her condition and association with gastric bypass. She reported that nausea and vomiting have gone completely. She did have mild LLQ pain, after having brown rice which she had for the first time, especially since gastric bypass. She still has intermittent mild lightheadedness but not all briana time and not assiciated with position. No chest pains, fever, chills, SOB. Review of Systems Constitutional: Reports: see HPI. Cardiovascular: Reports: no symptoms. Respiratory: Reports: no symptoms. Gastrointestinal: Reports: see HPI. Genitourinary: Reports: no symptoms. Musculoskeletal: Reports: no symptoms. Objective Last 24 Hrs of Vital Signs/I&O Vital Signs Date Time Temp Pulse Resp B/P B/P Pulse O2 O2 Flow FiO2 Mean Ox Delivery Rate 07/29 0759 98.4 56 14 120/66 97 Room Air 07/29 0052 98.8 68 20 138/82 98 Room Air 07/28 1530 98.3 95 18 98/58 95 Room Air Intake & Output 07/29 1600 07/29 0800 07/29 0000 Intake Total 400 600 Output Total Balance 400 600 Intake, Oral 400 600 Number 1 Bowel Movements Physical Exam General Appearance: Alert, Oriented X3, Cooperative, No Acute Distress Cardiovascular: Regular Rate, Normal S1, Normal S2, No Murmurs Lungs: Clear to Auscultation, Normal Air Movement Abdomen: Normal Bowel Sounds, Soft, No Tenderness, No Hepatospenomegaly Neurological: Normal Gait, Normal Speech, Strength at 5/5 X4 Ext, Normal Tone, Sensation Intact Extremities: No Edema, Normal Pulses Current Medications: Current Medications Sig/Erik Start time Last Medication Dose Route Stop Time Status Admin Acetaminophen 650 MG Q6P PRN 07/24 1745 AC PO Ciprofloxacin 250 MG BID 07/27 1000 AC 07/29 PO 07/31 0959 0857 Clopidogrel Bisulfate 75 MG DAILY 07/25 1215 AC 07/29 PO 0857 Cosyntropin 0.25 MG ONE ONE 07/29 0600 DC 07/29 IV 07/29 0601 0557 Hydromorphone HCl 0.6 MG Q4P PRN 07/24 1900 AC 07/29 IV 0857 Magnesium Oxide 400 MG ONE ONE 07/28 1915 DC 07/28 PO 07/28 1916 2001 Metronidazole 500 MG Q8 07/27 0841 AC 07/29 PO 0554 Multivitamins 1 TAB DAILY 07/25 1000 AC 07/29 Therapeutic PO 0857 Omeprazole 40 MG DAILY AC 07/26 0700 AC 07/29 PO 0554 Ondansetron HCl 4 MG Q6P PRN 07/24 1745 AC 07/28 IV 0819 Oxycodone/ 1 TAB Q6P PRN 07/24 1900 AC Acetaminophen PO Polyethylene Glycol 17 GM DAILY 07/28 1441 AC 07/28 PO 1642 Potassium Chloride 20 MEQ ONCE ONE 07/28 1545 DC 07/28 PO 07/28 1546 1642 Senna/Docusate Sodium 1 TAB BID 07/28 1442 AC 07/29 PO 0857 Last 24 Hrs of Lab/Prosper Results Last 24 Hrs of Labs/Mics: Laboratory Tests 07/29/16 0710: Cortisol AM Sample 29.9 H 07/29/16 0630: Cortisol AM Sample 21.0 07/29/16 0555: Cortisol AM Sample 10.0 07/29/16 0555: Anion Gap 11, Estimated GFR > 60, BUN/Creatinine Ratio 32.0 H Assessment/Plan Assessment: Ms Solorio is a 46-year-old woman who has a past medical history of hypertension, obesity (gastric bypass surgery done in Apr 2016), admitted for near syncope, jen cardia and hypoglycemia. Assessment and Plan: 1. Nausea, vomiting, diarrhea: - Patient's nausea vomiting and diarrhea improved. - Is being treated withoral ciprofloxacin for diverticulitis - Electrolyte abnormalities have been resolved 2. Late dumping syndrome: - suspicious of hyper insulinemia. Pending C-peptide level,. Insulin level 6.8 - Cosyntropic test within normal limits with repeat am cortisol was 10. ACTH stimulation test was done this morning and cortisol after 30 mins was 21 and cortisol after 60 mins was 29.9. - FSGs were 75, 83, 95, 104, 86, 73 and 80. - Will follow Endo - If FSG is < 60, will draw blood sample stat to check plasma glucose, insulin, c-peptide and random cortisol. - Diet as recommended by Endo:3 small meals and 3 snacks between meals; with complex carbohydrates 30 grams per meal, complex carbohydrates 15 grams per snack, encourage eating protein, avoid simple carbohydrates - monitor FSGs before each meal, two hours after each meal, bedtime, midnight and 3 am. 3. Hypertension: - Will controlled off medications. 4. Presyncope: - No arrythmias, or heart blocks, has had bradycardia. - Positive trops, trended down, cardiology evaluated, likely demand ischemia. No evidence of myocardial infarction - Initially started on IV heparin, which was discontinued after speaking to Dr. Crabtree. Pt was already given aspirin, but plan to start on plavix in view of gastric bypass and increase incidence of ulcers. Discussed w/ Dr Borges who is agreeable to have the pt on plavix. 5. DVT prophylaxis-pharmacological. Problem List: 1. Elevated troponin 2. Hypertension 3. Nausea and vomiting in adult Pain Ratin Pain Location: none Pain Goal: Remain pain free Pain Plan: PRN Tylenol Tomorrow's Labs & Rationales: None DVT/Prophylaxis: pharmacological Consulting Request: 1 Consulting Specialty: Endocrinology Consulting Physician: Hypoglycemia Reason for Consult: Dr. Echevarria Consulting Request: 2 Consulting Specialty: Cardiology Consulting Physician: Efren Pagan Reason for Consult: Bradycardia MARCELA SEAMAN,[facility] 07/29/16 1514: Attending MD Review Statement Attending Statement Attending MD Statement: examined this patient, discuss w/resident/PA/INSERTING PRESS OPERATOR, agreed w/resident/PA/INSERTING PRESS OPERATOR, reviewed EMR data (avail), discussed with nursing, amended to note Attending Assessment/Plan: Patient seen and examined. She reports abdominal cramping with dinner yesterday but tolerated breakfast today. Denies nausea vomiting. Reports abdominal pain is controlled with just 6. No significant events on telemetry monitoring overnight Other than mild bradycardia. Cardiology follow-up appreciated. Endocrinology follow-up noted. Recommendations: -Continue to advance diet as tolerated. -Continue oral and 20 therapy for diverticulitis. -Discontinue telemetry as recommended by the cardiology service. -Begin discharge planning if the patient continues to tolerate diet.
--- NOTE | 2016-07-29 11:11 | PN- Endocrinology ---
Assessment/Plan Assessment: 46 female with past medical history significant for morbid obesity s/p laparoscopic gastric bypass on 05/16/2016 with hiatal hernia repair, qapproximately 50 pounds weight loss post surgery, history of hypertension, GERD , was admitted for abdominal pain, nausea, vomiting, diarrhea secondary to acute diverticulitis. Patient also had positive troponins, hypokalemia and hypomagnesemia. After she was started on Bariatric stage V diet, she had hypoglycemia with glucose level in the 50s after she ate Nepali yogurt which has only 6 grams of sugar. Dx: Hypoglycemia s/p gastric bypass approximately 2 months ago-- etiology unclear at this point. recommended: 1. monitor FSGs before each meal, two hours after each meal, bedtime, midnight and 3 am. 2. recommend 3 small meals and 3 snacks between meals; ---complex carbohydrates 30 grams per meal ---complex carbohydrates 15 grams per snack ---encourage eating protein ---avoid simple carbohydrates 3. if FSG is < 60, please draw blood sample stat to check plasma glucose, insulin, c-peptide and random cortisol. Her FSGs were 75, 83, 95, 104, 86, 73 and 80. Repeat am cortisol was 10. ACTH stimulation test was done this morning and cortisol after 30 mins was 21 and cortisol after 60 mins was 29.9 which are in the normal range. Plan: continue the current diet; continue monitoring FSGs. will follow. Subjective Subjective: Patient has no special complaints this morning. Objective Last 24 Hrs of Vital Signs/I&O Vital Signs Date Time Temp Pulse Resp B/P B/P Pulse O2 O2 Flow FiO2 Mean Ox Delivery Rate 07/29 0759 98.4 56 14 120/66 97 Room Air 07/29 0052 98.8 68 20 138/82 98 Room Air 07/28 1530 98.3 95 18 98/58 95 Room Air Intake & Output 07/29 1600 07/29 0800 07/29 0000 Intake Total 400 600 Output Total Balance 400 600 Intake, Oral 400 600 Number 1 Bowel Movements Results Pertinent Lab/Prosper Results: Laboratory Tests 07/29 07/29 07/29 07/29 0710 0630 0555 0555 Chemistry Sodium (137 - 145 mmol/L) 139 Potassium (3.5 - 5.1 mmol/L) 4.1 Chloride (98 - 107 mmol/L) 107 Carbon Dioxide (22 - 30 mmol/L) 21 L Anion Gap (5 - 16) 11 BUN (7 - 17 mg/dL) 16 Creatinine (0.5 - 1.0 mg/dL) 0.5 Estimated GFR (>60 ml/min) > 60 BUN/Creatinine Ratio (7 - 25 %) 32.0 H Cortisol AM Sample (4.46 - 22.7 ug/dL) 29.9 H 21.0 10.0
[2016-07-29 15:57] VITALS: BP 116/70
[2016-07-29 23:52] VITALS: BP 130/72
[2016-07-30 08:03] VITALS: BP 140/82
--- NOTE | 2016-07-30 08:14 | PN- Housestaff ---
Subjective Follow-up For: - diarrhea - near syncope Complaints: no complaints Tele-Events Since Last Visit: off tele Subjective: Pt comfortable. No complaints. Blood sugar levels > 70. Vitals stable. Review of Systems Constitutional: Reports: see HPI. Objective Last 24 Hrs of Vital Signs/I&O Vital Signs Date Time Temp Pulse Resp B/P B/P Pulse O2 O2 Flow FiO2 Mean Ox Delivery Rate 07/30 0803 98.8 57 18 140/82 99 Room Air 07/29 2352 98.9 60 20 130/72 97 Room Air 07/29 1557 99.0 56 16 116/70 97 Room Air Intake & Output 07/30 1600 07/30 0800 05 0000 Intake Total 1200 Output Total Balance 1200 Intake, Oral 1200 Physical Exam General Appearance: No Acute Distress Other Physical Findings: General Appearance- Alert, Oriented X3, Cooperative, No Acute Distress, Mild Distress Skin No Rashes, No Breakdow HEENT Atraumatic, PERRLA, EOMI Neck Supple, No JVD, No thryomegaly Lymphatic Axillary nl, Cervical nl Cardiovascular Regular Rate, Normal S1, Normal S2, No Murmurs Lungs Normal Air Movement Abdomen Normal Bowel Sounds, Soft, No Hepatospenomegaly (epigastric tenderness) Neurological Normal Speech, Strength at 5/5 X4 Ext, Normal Tone, Sensation Intact, Cranial Nerves 3-12 NL, Reflexes 2+ Extremities No Cyanosis, No Edema, Normal Pulses, No Tenderness/Swelling Vascular Pulses Symmetrical Current Medications: Current Medications Sig/Erik Start time Last Medication Dose Route Stop Time Status Admin Acetaminophen 650 MG Q6P PRN 07/24 1745 AC PO Ciprofloxacin 250 MG BID 07/27 1000 AC 07/29 PO 07/31 0959 2155 Clopidogrel Bisulfate 75 MG DAILY 07/25 1215 AC 07/29 PO 0857 Hydromorphone HCl 0.6 MG Q4P PRN 07/24 1900 AC 07/29 IV 2236 Metronidazole 500 MG Q8 07/27 0841 AC 07/30 PO 0610 Multivitamins 1 TAB DAILY 07/25 1000 AC 07/29 Therapeutic PO 0857 Omeprazole 40 MG DAILY AC 07/26 0700 AC 07/30 PO 0609 Ondansetron HCl 4 MG Q6P PRN 07/24 1745 AC 07/28 IV 0819 Oxycodone/ 1 TAB Q6P PRN 07/24 1900 AC Acetaminophen PO Polyethylene Glycol 17 GM DAILY 07/28 1441 AC 07/28 PO 1642 Senna/Docusate Sodium 1 TAB BID 07/28 1442 AC 07/29 PO 2155 Last 24 Hrs of Lab/Prosper Results Last 24 Hrs of Labs/Mics: Laboratory Tests 07/30/16 0622: Sodium Pending, Potassium Pending, Chloride Pending, Carbon Dioxide Pending, Anion Gap Pending, BUN Pending, Creatinine Pending, BUN/Creatinine Ratio Pending , Magnesium Pending Assessment/Plan Assessment: Ms Solorio is a 46-year-old woman who has a past medical history of hypertension, obesity (gastric bypass surgery done in Apr 2016), admitted for near syncope, jen cardia and hypoglycemia. Assessment and Plan: 1. Nausea, vomiting, diarrhea: - Patient's nausea vomiting and diarrhea improved. - Is being treated withoral ciprofloxacin for diverticulitis - Electrolyte abnormalities have been resolved 2. Late dumping syndrome: - suspicious of hyper insulinemia. Pending C-peptide level,. Insulin level 6.8 - Cosyntropic test within normal limits with repeat am cortisol was 10. ACTH stimulation test was done this morning and cortisol after 30 mins was 21 and cortisol after 60 mins was 29.9. - Will follow Endo - If FSG is < 60, will draw blood sample stat to check plasma glucose, insulin, c-peptide and random cortisol. - Diet as recommended by Endo:3 small meals and 3 snacks between meals; with complex carbohydrates 30 grams per meal, complex carbohydrates 15 grams per snack, encourage eating protein, avoid simple carbohydrates - monitor FSGs before each meal, two hours after each meal, bedtime, midnight and 3 am. 3. Hypertension: - Will controlled off medications. 4. Presyncope: - No arrythmias, or heart blocks, has had bradycardia. - Positive trops, trended down, cardiology evaluated, likely demand ischemia. No evidence of myocardial infarction - Initially started on IV heparin, which was discontinued after speaking to Dr. Crabtree. Pt was already given aspirin, but plan to start on plavix in view of gastric bypass and increase incidence of ulcers. Discussed w/ Dr Borges who is agreeable to have the pt on plavix. 5. DVT prophylaxis-pharmacological. 6. Diverticulitis- continue ciprofloxacin, and metronidazole. Problem List: 1. Elevated troponin 2. Diarrhea Pain Ratin Pain Location: abdomen Pain Goal: Pain 4 or less Pain Plan: tylenol Tomorrow's Labs & Rationales: no labs Consulting Request: Consulting Specialty: Cardiology Consulting Physician: Efren Pagan Reason for Consult: Bradycardia
--- NOTE | 2016-07-30 09:51 | PN- Endocrinology ---
Assessment/Plan Assessment: 46 female with past medical history significant for morbid obesity s/p laparoscopic gastric bypass on 05/16/2016 with hiatal hernia repair, qapproximately 50 pounds weight loss post surgery, history of hypertension, GERD , was admitted for abdominal pain, nausea, vomiting, diarrhea secondary to acute diverticulitis. Patient also had positive troponins, hypokalemia and hypomagnesemia. After she was started on Bariatric stage V diet, she had hypoglycemia with glucose level in the 50s after she ate Yoruba yogurt which has only 6 grams of sugar. Dx: Hypoglycemia s/p gastric bypass approximately 2 months ago-- etiology unclear at this point. recommended: 1. monitor FSGs before each meal, two hours after each meal, bedtime, midnight and 3 am. 2. recommend 3 small meals and 3 snacks between meals; ---complex carbohydrates 30 grams per meal ---complex carbohydrates 15 grams per snack ---encourage eating protein ---avoid simple carbohydrates 3. if FSG is < 60, please draw blood sample stat to check plasma glucose, insulin, c-peptide and random cortisol. Repeat am cortisol was 10. ACTH stimulation test was done this morning and cortisol after 30 mins was 21 and cortisol after 60 mins was 29.9 which are in the normal range. Her FSGs were 99, 90, 112, 79, 88, 79, 82 and 77 which has been stable. Plan: continue the current diet. Subjective Subjective: She feels well this morning. Objective Last 24 Hrs of Vital Signs/I&O Vital Signs Date Time Temp Pulse Resp B/P B/P Pulse O2 O2 Flow FiO2 Mean Ox Delivery Rate 07/31 0703 98.8 57 18 140/82 99 Room Air 07/29 2352 98.9 60 20 130/72 97 Room Air 07/29 1557 99.0 56 16 116/70 97 Room Air Intake & Output 07/30 1600 07/30 0800 07/30 0000 Intake Total 1200 Output Total Balance 1200 Intake, Oral 1200 Results Pertinent Lab/Prosper Results: Laboratory Tests 07/30 06 Chemistry Sodium (137 - 145 mmol/L) 138 Potassium (3.5 - 5.1 mmol/L) 3.8 Chloride (98 - 107 mmol/L) 105 Carbon Dioxide (22 - 30 mmol/L) 24 Anion Gap (5 - 16) 9 BUN (7 - 17 mg/dL) 17 Creatinine (0.5 - 1.0 mg/dL) 0.6 Estimated GFR (>60 ml/min) > 60 BUN/Creatinine Ratio (7 - 25 %) 28.3 H Magnesium (1.6 - 2.3 mg/dL) 1.9
--- NOTE | 2016-07-30 11:21 | PN- Cardiology ---
Subjective Subjective: Feeling well. No chest pain. No palpitations. No lightheadedness or dizziness. No nausea or vomiting. Objective Vital Signs and I&Os Vital Signs Date Time Temp Pulse Resp B/P B/P Pulse O2 O2 Flow FiO2 Mean Ox Delivery Rate 07/30 0803 98.8 57 18 140/82 99 Room Air 07/29 2352 98.9 60 20 130/72 97 Room Air 07/29 1557 99.0 56 16 116/70 97 Room Air Intake & Output 07/30 1600 07/30 0807/30 0000 07/29 1600 07/29 0807/29 0000 Intake Total 1200 480 400 600 Output Total Balance 1200 480 400 600 Intake, Oral 1200 480 400 600 Number 1 Bowel Movements Physical Exam: Gen: NAD HEENT: normal Lungs: clear to auscultation, normal resp. effort Heart: RRR, S1, S2, no murmurs Abdomen: Soft, nontender, no masses Extremities: 1+ edema Neuro: Alert and oriented x 3, cranial nerves intact Current Medications: Current Medications Sig/Erik Start time Last Medication Dose Route Stop Time Status Admin Acetaminophen 650 MG Q6P PRN 07/24 1745 AC PO Ciprofloxacin 250 MG BID 07/27 1000 AC 07/30 PO 07/31 0959 1013 Clopidogrel Bisulfate 75 MG DAILY 07/25 1215 AC 07/30 PO 1013 Hydromorphone HCl 0.6 MG Q4P PRN 07/24 1900 AC 07/29 IV 2236 Metronidazole 500 MG Q8 07/27 0841 AC 07/30 PO 0610 Multivitamins 1 TAB DAILY 07/25 1000 AC 07/30 Therapeutic PO 1013 Omeprazole 40 MG DAILY AC 07/26 0700 AC 07/30 PO 0609 Ondansetron HCl 4 MG Q6P PRN 07/24 1745 AC 07/28 IV 0819 Oxycodone/ 1 TAB Q6P PRN 07/24 1900 AC 07/30 Acetaminophen PO 1013 Polyethylene Glycol 17 GM DAILY 07/28 1441 AC 07/28 PO 1642 Senna/Docusate Sodium 1 TAB BID 07/28 1442 AC 07/29 PO 2155 Results Last 48 Hrs of Labs/Mics: Laboratory Tests 07/30/16 0622: Anion Gap 9, Estimated GFR > 60, BUN/Creatinine Ratio 28.3 H, Magnesium 1.9 07/29/16 0710: Cortisol AM Sample 29.9 H 07/29/16 0630: Cortisol AM Sample 21.0 07/29/16 0555: Cortisol AM Sample 10.0 07/29/16 0555: Anion Gap 11, Estimated GFR > 60, BUN/Creatinine Ratio 32.0 H Assessment/Plan Assessment/Plan 1. Status post gastric bypass surgery 2. Mild troponin elevation, likely demand ischemia 3. Hypertension 4. Premature atrial contractions 5. Hypokalemia and hypomagnesemia Plan: * Continue current cardiac medications. * Okay for discharge from cardiac standpoint. * Follow up with Dr. Crabtree in one to 2 weeks. * Call Dr. Crabtree with any cardiac symptoms after discharge. Continue telemetry? No
[2016-07-30] MEDS ORDERED: PLAVIX75 M1 PO (13:23)
[2016-07-30] MEDS ORDERED: OMEPRAZOLE20 M2 PO (13:23)
[2016-07-30] MEDS ORDERED: PROTONIX40 M3 PO (13:24)
--- NOTE | 2016-07-30 13:45 | Patient Discharge Instructions ---
Discharge Instructions General Discharge Information You were seen/treated for: - Hypoglycemia - Near syncope - Elevated cardiac enzymes Watch for these problems: - chest pain, shortness of breath - dizziness, lightheadedness, sweating - abdominal pain, diarrhea. Special Instructions: 1. Please see your PCP within one week of discharge. 2. Please see your aeronautical test engineer within one week of discharge. 3. Please see your dispensing optician within one week of discharge. 4. Please follow the meal plan- 2. recommend 3 small meals and 3 snacks between meals; --complex carbohydrates 30 grams per meal --complex carbohydrates 15 grams per snack --encourage eating protein --avoid simple carbohydrates Acute Coronary Syndrome Inclusion Criteria At DC or during hospital stay patient has or had the following: ACS DIAGNOSIS Yes Discharge Core Measures Meds if any: Prescribed or Continued at Discharge PHILLIP/ARB if EF <40% No Aspirin No Beta-Rhiannon Yes Statin No Meds if any: NOT Prescribed or Continued at Discharge No Aspirin d/t gastric bypass Congestive Heart Failure Inclusion Criteria At DC or during hospital stay patient has or had the following: CHF DIAGNOSIS No Discharge Core Measures Meds if any: Prescribed or Continued at Discharge Meds if any: NOT Prescribed or Continued at Discharge Cerebrovascular accident Inclusion Criteria At DC or during hospital stay patient has or had the following: CVA/TIA Diagnosis No Discharge Core Measures Meds if any: Prescribed or Continued at Discharge Meds if any: NOT Prescribed or Continued at Discharge Venous thromboembolism Inclusion Criteria VTE Diagnosis No VTE Type NONE VTE Confirmed by (Test) NONE Discharge Core Measures - Per Current guidelines, there needs to be overlap - treatment for the first 5 days of Warfarin therapy. - If discharged on Warfarin prior to 5 days of - overlap therapy, the patient will need to be - assessed for post discharge needs including - *Post discharge parental anticoagulation - *Warfarin and/or parental anticoagulation education - *Follow up date to check INR post discharge At least 5 days overlap therapy as Inpatient No Meds if any: Prescribed or Continued at Discharge Note: Overlap Therapy is Warfarin and Anticoagulant Meds if any: NOT Prescribed or Continued at Discharge
[2016-07-30] MEDS ORDERED: CIPRO500 M1 PO (13:54)
[2016-07-30] MEDS ORDERED: FLAGYL500 MG PO (13:54)
[2016-07-30] MEDS ORDERED: PROTONIX20 M1 PO (14:10)
--- NOTE | 2016-07-30 17:44 | PN- Att Addend ---
Attending MD Review Statement Attending Statement Attending MD Statement: examined this patient, discuss w/resident/PA/HOTEL ENGINEER, agreed w/resident/PA/HOTEL ENGINEER, reviewed EMR data (avail), discussed w/nursing, discussed w/ case mgmt Attending Assessment/Plan: Laboratory Tests 07/30/16 0622: Anion Gap 9, Estimated GFR > 60, BUN/Creatinine Ratio 28.3 H, Magnesium 1.9 Vital Signs Date Time Temp Pulse Resp B/P B/P Pulse O2 O2 Flow FiO2 Mean Ox Delivery Rate 07/30 0803 98.8 57 18 140/82 99 Room Air 07/29 2352 98.9 60 20 130/72 97 Room Air Patient seen and examined at bedside. Discussed with patient care plan. I went over her meal plan with her prior to discharge. The see the discharge summary for more details
--- NOTE | 2016-07-30 23:41 | Discharge Summary ---
See Addendum Visit Information Visit Dates Admission Date: 07/24/16 Discharge Date: 07/30/16 Hospital Course Course Attending Physician: MAYANK WOODS MD Primary Care Physician: BRAYDEN MARIA MD Consulting Request: Consulting Specialty: Cardiology Consulting Physician: Efren Pagan Reason for Consult: Bradycardia Hospital Course: Ms Solorio is a 46-year-old woman who has a past medical history of hypertension, obesity (gastric bypass surgery done recently). She is being evaluated of near loss of consciousness 1 day. At the time of admission, vitals 98.7, respiration 20, pulse rate 58, blood pressure 175/85 (improved later ), pulse ox 100% on room air. Findings indicated WBC 10.4, hemoglobin 15.1, platelets 234, normal electrolytes-sodium 140, potassium 3.8, anion gap 17, bicarbonate 17, BUN 15. Creatinine 0.6, lactic acid 1.8, d-dimer 615, EKG revealed normal sinus rhythm, heart rate 51, slightly elevated T waves. Radiological findings-chest x-ray negative for any acute process. CT abdomen and pelvis with oral and IV contrast revealed small focus of diverticulitis involving the distal descending colon. Also was found a nonobstructing 3 mm stone in the upper pole of the right kidney (chronic as per the patient). Below is the problem list and plan: #1 nausea, vomiting, diarrhea-likely, common etiology is viral gastroenteritis. Since the patient underwent gastric bypass, acute changes in microbiota could have possibly caused diarrhea or diverticulitis. For diverticultitis, she was started on Unasyn which was transitioned to po ciprofloxacin and metronidazole. Diet was advanced as tolerted. GI proposal consultant, Dr. Khan was consulted for advice. Марина work up, colonoscopy as an outpatient. #3 presyncope-patient was monitored closely on telemetry. Pt had elevated cardiac enzyme, troponin I peaked at 0.40. EKG revealed slightly peaked t wave, but did not have any STTWI. Since, peaked t wave, could be considered pre-ST changes, she was monitored closely, and was started on anticoagulation. It was discontinued, after monitoring. Pt was started on plavix, after speaking to Dr. Kennedy. #4 Persistent hypoglycemia- Pt did not have any dizziness or loss of consciousness while, she was in the hospital. When the diet was advanced after she was able to eat solid diet, she was found to require several iv injections/ boluses of glucose. She was found to be hypoglycemic, and tachycardic after she started po intake. Differential diagnosis included- late dumping syndrome(early onset) or hypoglycemia of unclear etiology. Diet was adjusted w/ 30gm complex carbohydrates per meal w/ 15gm of complex carb meal interspersed between. She did not have any further episodes of hypoglycemia or needed any further iv glucose injections. Cosyntropin test was negative ruling out any hypocortisolemia. Furhter workup was to be done as an outpatient. Dr Echevarria was consulted for advice. Allergies: Coded Allergies: No Known Allergies (01/17/16) Pertinent Lab Results: CAT - CT ABD & PELVIS W ORAL & IV CO 1. Small focus of diverticulitis involving the distal descending colon. 2. Status post gastric bypass. 3. Status post cholecystectomy. 4. Nonobstructive 3 mm stone upper pole of the right kidney. CT ANGIOGRAM OF THE CHEST WITH CONTRAST (CT PULMONARY ANGIOGRAM FOR PE) No evidence of pulmonary embolism. ECHOCARDIOGRAM 1. The aortic valve is trileafle and normal. 2. The mitral valve is anatomically normal with minimal to mild mitral insufficiency. 3. There is no pericardial fluid present. 4. The left ventricular chamber size and systolic function are normal. 6. Minimal to mild tricuspid and pulmonic insufficiency are present with no evidence of pulmonary hypertension. Disposition Summary Disposition Principal Diagnosis: Diverticulitis Additional Diagnosis: Hypoglycemia of unclear etiology Gastric bypass complication Discharge Disposition: home or self care Discharge Instructions General Discharge Information Code Status: Full Code Patient's Diet: 2. recommend 3 small meals and 3 snacks between meals; --complex carbohydrates 30 grams per meal --complex carbohydrates 15 grams per snack --encourage eating protein --avoid simple carbohydrates Patient's Activity: as tolerated. Follow-Up Instructions/Appts: 1. Please see your PCP within one week of discharge. 2. Please see your real estate coordinator within one week of discharge. 3. Please see your pattern filer within one week of discharge. 4. Please follow the meal plan- 2. recommend 3 small meals and 3 snacks between meals; --complex carbohydrates 30 grams per meal --complex carbohydrates 15 grams per snack --encourage eating protein --avoid simple carbohydrates Medications at Discharge Discharge Medications: Continue taking these medications: Multivitamin (Multi-Day Vitamins) 1 EACH TABLET 1 Tablet ORAL DAILY Comments: given 07/30/16 @ 1015 Ergocalciferol (Vitamin D2) (Vitamin D2) 50,000 UNIT CAPSULE 1 Capsule ORAL EVERY SATURDAY Qty = 4 Comments: not given Start taking the following new medications: Clopidogrel Bisulfate (Plavix) 75 MG TABLET 75 Milligram ORAL DAILY Days = 30 No Refills Comments: given 07/30/16 @ 1015 Ciprofloxacin HCl (Cipro) 500 MG TABLET 1 Tablet ORAL TWICE DAILY Qty = 3 No Refills Comments: given 07/30/16 @ 1015 Metronidazole (Flagyl) 500 MG TABLET 1 Tablet ORAL Q8H Days = 2 No Refills Comments: given 07/30/16 @ 2:10 pm Pantoprazole Sodium (Protonix) 20 MG TABLET.DR 1 Tablet ORAL DAILY Qty = 30 No Refills Comments: given prilosec in hospital 07/30/16 @ 0610 Copies To: CANDACE SEAMAN,BRAYDEN Attending MD Review Statement Documenting Attending: MAYANK WOODS MD
== END 2016-07-30 14:56 | DRG 244 ==
LOC: ERH 14:09 → 1NO 17:48 → ERHI 17:48 → ENRESERV 18:19 → 1NO 19:48 → ENPENDDIS 07-30 14:26 → 1NO 07-30 14:56
PROVIDERS: Emergency Medicine; ADMIT Internal Medicine
DX: K57.32 Diverticulitis of large intestine without perforation or abscess without bleeding (principal); I24.8 Other forms of acute ischemic heart disease; E66.01 Morbid (severe) obesity due to excess calories; E83.42 Hypomagnesemia; K91.1 Postgastric surgery syndromes; E16.2 Hypoglycemia, unspecified; I10 Essential (primary) hypertension; K21.9 Gastro-esophageal reflux disease without esophagitis; E86.1 Hypovolemia; Z68.36 Body mass index [BMI] 36.0-36.9, adult; D18.03 Hemangioma of intra-abdominal structures; Y83.8 Other surgical procedures as the cause of abnormal reaction of the patient, or of later complication, without mention of misadventure at the time of the procedure; K95.89 Other complications of other bariatric procedure; E87.6 Hypokalemia; I49.1 Atrial premature depolarization; G47.33 Obstructive sleep apnea (adult) (pediatric)
CPT/HCPCS: 1NP; 36415; 74177; 80307; 81001; 82436; 86337; 87040; 87045; 87086; 93005; 93010; 93306; 96361; 96374; 96375; J0834; J1644; J1650; J2405; J2765; J3490; J7042; Q9965

== ENCOUNTER 2017-06-04 01:36 | Inpatient (IN) | payer OTHER ==
[~2017-06-04] VITALS: Ht 170.2 cm; Wt 80.9 kg
[~2017-06-04 01:36] MED LIST changes: +CIPRO500 M1 PO; +FLAGYL500 MG PO; +OMEPRAZOLE20 M2 PO; +PLAVIX75 M1 PO; +PROTONIX20 M1 PO; +VITAMIN D250000 UNIT PO
--- NOTE | 2017-06-04 01:49 | ED GI/GU/ABDOMINAL COMPLAINT ---
History of Present Illness General Chief Complaint: Abdominal Pain/Flank Pain Stated Complaint: ABD PAIN Source: patient, old records, EMS Exam Limitations: no limitations Vital Signs & Intake/Output Vital Signs & Intake/Output Vital Signs Date Time Temp Pulse Resp B/P B/P Pulse O2 O2 Flow FiO2 Mean Ox Delivery Rate 06/05 143 97 Room Air 06/05 139 62 18 163/85 100 Room Air Allergies Coded Allergies: No Known Allergies (01/17/16) Reconcile Medications No Known Home Medications Triage Note: PT FROM HOME C/O UMBILICAL/ABD PAIN X 1.5 HRS. PT STATES THAT SHE WAS AT HOME LAYING IN BED AND A SHARP SHOOTING PAIN FROM BEHIND PTS UMBILICUS RADIATING TO UPPER ABD. PT STATES N/V X2 EPISODES. PT ARRIVES WITH A PREHOSPITAL RAC #20. PT PLACED ON MONITOR. PT CHANGED INTO GOWN. PT STATES SHE HAD A BIOPSY LAST WEEK TO SEE IF SHE HAS CERVICAL CANCER. Triage Nurses Notes Reviewed? yes ? N Is pt currently ? No HPI: Symptoms will sleep with a sharp stabbing pain at her umbilicus. The pain radiates up into her upper abdomen. The pain is constant. There are no aggravating or medication package. Positive nausea vomiting. No diarrhea. No fevers or chills. During the physical portion of the exam patient has syncopal episode while palpating her abdomen. Patient was on the heart monitor at the time and she remained sinus rhythm in the 60s. Patient quickly came to. Past History Travel History Traveled to [place] past 21 day No Medical History Any Pertinent Medical History? see below for history Neurological: NONE EENT: NONE Cardiovascular: hypertension Respiratory: ? mild ALLAN Gastrointestinal: POST OP N/V; GJ bypass Hepatic: hemangioma left lobe liver Renal: nephrolithiasis (on right w/o hydro; ? 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 , Age 60+. MOTHER (EtOH). Age 60+. Relation not specified for: *No pertinent family history Hx Contributory? No Review of Systems Review of Systems Constitutional: Reports: no symptoms. EENTM: Reports: no symptoms. Respiratory: Reports: no symptoms. Cardiovascular: Reports: no symptoms. GI: Reports: see HPI, abdominal pain, nausea, vomiting. Genitourinary: Reports: no symptoms. Musculoskeletal: Reports: no symptoms. Skin: Reports: no symptoms. Neurological/Psychological: Reports: no symptoms. Hematologic/Endocrine: Reports: no symptoms. Immunologic/Allergic: Reports: no symptoms. All Other Systems: Reviewed and Negative Physical Exam Physical Exam General Appearance: well developed/nourished, alert, awake, anxious, moderate distress Head: atraumatic, normal appearance Eyes: Bilateral: PERRL, EOMI. Ears, Nose, Throat, Mouth: hearing grossly normal, DRY MUCOSA Neck: normal inspection, supple, full range of motion Respiratory: normal breath sounds, chest non-tender, no respiratory distress, lungs clear Cardiovascular: regular rate/rhythm, normal peripheral pulses Gastrointestinal: normal bowel sounds, soft, no organomegaly, guarding, tenderness Back: normal inspection Extremities: normal range of motion Neurologic/Psych: no motor/sensory deficits, awake, alert, oriented x 3, normal mood/affect Skin: intact, normal color, warm/dry Core Measures ACS in differential dx? No Sepsis Present: No Sepsis Focused Exam Completed? No Progress Differential Diagnosis: appendicitis, bowel obstruction, diverticulitis, gastritis, hepatitis, hernia, ischemic bowel, inflamm bowel dis, pancreatitis, peptic ulcer, PUD/GERD, perforated viscous, SBO Plan of Care: Orders Procedure Date/time Status Nothing by Mouth 06/04 B Active ED Holding Orders 06/046 Active Admit to inpatient 06/04 0456 Active Vital Signs 06/04 0456 Active Code Status 06/04 0456 Active EKG 06/04 0201 Active Add-on Test (ER Only) 06/04 0151 Active LACTIC ACID 06/04 0151 Complete URINALYSIS 06/04 148 Active LIPASE 06/04 014 Complete HUMAN BETA HCG SCREEN 06/04 148 Complete COMPREHENSIVE METABOLIC PANEL 06/04 148 Complete CBC WITHOUT DIFFERENTIAL 06/04 148 Complete AMYLASE 03/13 0149 Complete Laboratory Tests 06/04/17 0518: Urine Color Pending, Urine Clarity Pending, Urine pH Pending, Ur Specific Murphy Pending, Urine Protein Pending, Urine Ketones Pending, Urine Nitrite Pending, Urine Bilirubin Pending, Urine Urobilinogen Pending, Ur Leukocyte Esterase Pending, Ur Microscopic Pending, Urine Hemoglobin Pending, Urine Glucose Pending 06/04/17 0235: Anion Gap 16, Estimated GFR > 60, BUN/Creatinine Ratio 28.0 H, Glucose 108 H, Lactic Acid 3.2 H, Calcium 8.5, Total Bilirubin 0.1 L, AST 16, ALT 16, Alkaline Phosphatase 59, Total Protein 6.5, Albumin 3.7, Globulin 2.8, Albumin/ Globulin Ratio 1.3, Amylase 48, Lipase 116, Total Beta HCG NEGATIVE 06/04/17 0151: CBC w Diff MAN DIFF ORDERED, RBC 4.64, MCV 92.4, MCH 31.4 H, MCHC 33.9, RDW 14.1, MPV 9.4, Gran % 63.4, Lymphocytes % 30.1, Monocytes % 4.5, Eosinophils % 1.0, Basophils % 1.0, Absolute Granulocytes 4.6, Segmented Neutrophils 54, Band Neutrophils 4, Absolute Lymphocytes 2.2, Lymphocytes 29, Monocytes 5, Absolute Monocytes 0.3, Eosinophils 5, Absolute Eosinophils 0.1, Basophils 3 H, Absolute Basophils 0.1, Platelet Estimate ADEQUATE, Normocytic RBCs VERIFIED, Normochromic RBCs VERIFIED Diagnostic Imaging: Viewed by Me: CT Scan. Discussed w/RAD: CT Scan. Radiology Impression: PATIENT: ANNEMARIE KEE PRESENT AGE: 46 PATIENT ACCOUNT NO: [id number] : 68 LOCATION: [facility] ORDERING PHYSICIAN: Alexis Virgen MD SERVICE DATE: 06/04/17 EXAM TYPE: CAT - CT ABD & PELVIS W ORAL & IV CO EXAMINATION: CT ABDOMEN AND PELVIS WITH CONTRAST CLINICAL INFORMATION: Sudden onset periumbilical pain COMPARISON: None TECHNIQUE: Multidetector volumetric imaging was performed of the abdomen and pelvis following IV administration of 95 mL of Optiray 320 intravenous contrast. Sagittal and coronal reformatted images were obtained on the technologist's workstation. DLP: 384.54 mGy-cm FINDINGS: LUNG BASES: There is mild dependent atelectasis at the lung bases. LIVER, GALLBLADDER, AND BILIARY TREE: The liver is normal in size, shape, and attenuation. There is a redemonstrated hypoattenuating lesion in the left hepatic lobe measuring approximately 2 cm, similar to prior. No biliary ductal dilatation is present. Patient is status post cholecystectomy. PANCREAS: Unremarkable. SPLEEN: Unremarkable. ADRENAL GLANDS: Unremarkable. KIDNEYS AND URETERS: No hydronephrosis bilaterally. The left renal collecting system is duplicated. There are small hypoattenuating lesions in bilateral kidneys favoring cysts. There is a right lower pole renal calculus measuring 0.7 cm in length. BLADDER: Unremarkable. GASTROINTESTINAL TRACT: Patient is status post gastric bypass surgery. No specific evidence for bowel obstruction. The cecum has a different orientation compared to 07/24/2016 with the base of the cecum now directed towards the midline, suggesting a mobile cecum. There is prominent distention of the cecum and ascending colon with gradual decrease in colonic caliber extending to the splenic flecture; the remainder of the colon is mostly collapsed. There is colonic diverticulosis without convincing evidence for diverticulitis. The appendix is not well delineated. There is diffuse fat stranding throughout the mesentery in keeping with edema. A small volume of ascites is noted in the right abdomen. ABDOMINAL WALL: No significant hernia is appreciated. LYMPH NODES: Normal. VASCULAR: There is mild calcification along the infrarenal aorta. PELVIC VISCERA: Unremarkable. There is a moderate amount of pelvic free fluid. OSSEOUS STRUCTURES: Mild scattered degenerative changes are present in the spine. IMPRESSION: 1. Configuration of the cecum has changed since 07/24/2016, with the base of the cecum now directed towards the midline suggesting a mobile cecum. No convincing evidence for obstruction. There is prominent gaseous distention of the cecum and ascending colon with gradual decrease in caliber of the remainder of the colon. 2. Status post gastric bypass surgery. 3. Diffuse mesenteric edema and small volume ascites. 4. Colonic diverticulosis. DICTATED BY: Steffen Dowd MD DATE /TIME DICTATED:06/04/17405 TESTER/LIFT TRUCKER:PIPER DATE/TIME TRANSCRIBED: 06/04/17405 CONFIDENTIAL, DO NOT COPY WITHOUT APPROPRIATE AUTHORIZATION. < Electronically signed in Other Vendor System> SIGNED BY: Steffen Dowd MD 06/04/17 0427 Initial ED EKG: NSR, no ST T wave changes Rhythm Strip: normal sinus rhythm Departure Departure Disposition: STILL A PATIENT Condition: Stable Clinical Impression Primary Impression: Upper abdominal pain, unspecified Referrals: Regino SEAMAN,Alexis Matthews (PCP/Family) Departure Forms: Customer Survey General Discharge Information Prescriptions: Current Visit Scripts No Known Home Medications Admission Note Spoke With: Satya Kennedy DO Documentation of Exam: Documentation of any treatments & extenuating circumstances including Concerns Regarding Discharge (functional status, medication knowledge or non-compliance, living conditions, etc.) that warrant an admission rather than observation: [NPO , IV FLUIDS, IV PAIN CONTROL, MAY REQUIRE SURGICAL INTERVENTION OR/GI Note Spoke With: Satya Kennedy DO ED Treatment Decision: ANNEMARIE KEE requires urgent operative management or an emergent procedure that cannot be performed in the Emergency Room setting. Transport To: [facility] Critical Care Note Critical Care Note Critical Care Time: mins: (90 MIN)
[2017-06-04 02:17] LABS: ABSOLUTE BASOPHIL COUNT 0.1 /CUMM (0.0-0.2); ABSOLUTE EOSINOPHIL COUNT 0.1 /CUMM (0.0-0.7); ABSOLUTE GRANULOCYTE CT 4.6 /CUMM (1.4-6.5); ABSOLUTE LYMPH COUNT 2.2 /CUMM (1.2-3.4); ABSOLUTE MONOCYTE COUNT 0.3 /CUMM (0.10-0.60); GRANULOCYTE % 63.4 % (42.2-75.2); HEMATOCRIT 42.9 % (37-47); MEAN CORPUSCULAR HGB 31.4 PG (27.0-31.0); MEAN CORPUSCULAR HGB CONC 33.9 G/DL (33.0-37.0); MEAN CORPUSCULAR VOLUME 92.4 FL (81.0-99.0); MEAN PLATELET VOLUME 9.4 FL (7.4-10.4); PLATELET COUNT 198 /CUMM (130-400); RBC DISTRIBUTION WIDTH 14.1 % (11.5-14.5); RED BLOOD CELL CT 4.64 /CUMM (4.20-5.40); WHITE BLOOD CELL COUNT 7.3 /CUMM (4.8-10.8)
--- NOTE | 2017-06-04 04:27 | CT SCAN REPORT ---
EXAMINATION: CT ABDOMEN AND PELVIS WITH CONTRAST CLINICAL INFORMATION: Sudden onset periumbilical pain COMPARISON: None TECHNIQUE: Multidetector volumetric imaging was performed of the abdomen and pelvis following IV administration of 95 mL of Optiray 320 intravenous contrast. Sagittal and coronal reformatted images were obtained on the technologist's workstation. DLP: 384.54 mGy-cm FINDINGS: LUNG BASES: There is mild dependent atelectasis at the lung bases. LIVER, GALLBLADDER, AND BILIARY TREE: The liver is normal in size, shape, and attenuation. There is a redemonstrated hypoattenuating lesion in the left hepatic lobe measuring approximately 2 cm, similar to prior. No biliary ductal dilatation is present. Patient is status post cholecystectomy. PANCREAS: Unremarkable. SPLEEN: Unremarkable. ADRENAL GLANDS: Unremarkable. KIDNEYS AND URETERS: No hydronephrosis bilaterally. The left renal collecting system is duplicated. There are small hypoattenuating lesions in bilateral kidneys favoring cysts. There is a right lower pole renal calculus measuring 0.7 cm in length. BLADDER: Unremarkable. GASTROINTESTINAL TRACT: Patient is status post gastric bypass surgery. No specific evidence for bowel obstruction. The cecum has a different orientation compared to 07/24/2016 with the base of the cecum now directed towards the midline, suggesting a mobile cecum. There is prominent distention of the cecum and ascending colon with gradual decrease in colonic caliber extending to the splenic flecture; the remainder of the colon is mostly collapsed. There is colonic diverticulosis without convincing evidence for diverticulitis. The appendix is not well delineated. There is diffuse fat stranding throughout the mesentery in keeping with edema. A small volume of ascites is noted in the right abdomen. ABDOMINAL WALL: No significant hernia is appreciated. LYMPH NODES: Normal. VASCULAR: There is mild calcification along the infrarenal aorta. PELVIC VISCERA: Unremarkable. There is a moderate amount of pelvic free fluid. OSSEOUS STRUCTURES: Mild scattered degenerative changes are present in the spine. IMPRESSION: 1. Configuration of the cecum has changed since 07/24/2016, with the base of the cecum now directed towards the midline suggesting a mobile cecum. No convincing evidence for obstruction. There is prominent gaseous distention of the cecum and ascending colon with gradual decrease in caliber of the remainder of the colon. 2. Status post gastric bypass surgery. 3. Diffuse mesenteric edema and small volume ascites. 4. Colonic diverticulosis.
--- NOTE | 2017-06-04 06:08 | RADIOLOGY REPORT ---
EXAMINATION: XR PORTABLE CHEST CLINICAL INFORMATION: Preoperative COMPARISON: 07/24/2016 TECHNIQUE: Portable frontal view of the chest was obtained. FINDINGS: There is mild elevation of the left hemidiaphragm. No focal consolidation is seen bilaterally. No evidence of pneumothorax, pleural effusion, or pulmonary edema. The cardiac silhouette appears near the upper limits of normal in size. No acute osseous findings are seen. IMPRESSION: No acute cardiopulmonary findings.
--- NOTE | 2017-06-04 06:09 | History & Physical Pre-Op ---
Maris Coffman 06/04/17 0559: General Information and HPI MD Statement: I have seen and personally examined ANNEMARIE KEE and documented this H&P. The patient is a 46 year old F who presented with a patient stated chief complaint of [].abdominal pain Source of Information: patient Exam Limitations: no limitations History of Present Illness: 46yo female with a history of a lap gastric bypass on 05/16/2016 and a cholecystectomy one month prior to that presents with abdominal pain. She states that over the past couple of weeks she has had a similar pain which is localized to her mid abdomen and presents suddenly not associated with eating, it resolves spontaneously. SHe has been able to pass gas and has had normal bowel movemets including 06/03. On the evening of 06/03 she had a similar pain but it was much worse than prior and associated with nausea. She vomited a couple of times before coming to the ED. She is currently not nauseated and her pain is barely tolerable with dilaudid IV - morphine did not help. The pain is mid abdomen and radiates to her back. Her last foor was at 7 pm on 06/03. Other than this pain she has been feeling well since her surgery and has lost over 100 pounds. Allergies/Medications Allergies: Coded Allergies: No Known Allergies (01/17/16) Home Med list No Known Home Medications Past History Medical History Neurological: NONE EENT: NONE Cardiovascular: hypertension Respiratory: ? mild ALLAN Gastrointestinal: POST OP N/V; GJ bypass Hepatic: hemangioma left lobe liver Renal: nephrolithiasis (on right w/o hydro; ? type) Musculoskeletal: degen joint disease Psychiatric: NONE Endocrine: vitamin D deficiency Blood Disorders: NONE Cancer(s): NONE SANDSTONE SPLITTER/Reproductive: NONE History of MRSA: No History of VRE: No History of CDIFF: No Surgical History Pertinent Surgical History: cholecystectomy (01/18/16: lap CCKY), 05/16/16: LAP GJ BYPASS & LAP HH REPAIR Past Family/Social History Family History Relations & Conditions if any FATHER (unknown cause, + EtOH). , Age 60+. MOTHER (EtOH). Age 60+. Relation not specified for: *No pertinent family history Psychosocial History Who Do You Live With? child Services at Home None Primary Language: Greek ETOH Use: denies use Illicit Drug Use: denies illicit drug use Living Will? no Power of Defensive Line Coach/HCP? no Functional Ability ADLs Independent: dressing, eating, toileting, bathing. Ambulation: independent IADLs Independent: shopping, housework, finances, food prep, telephone, transportation , medication admin. Review of Systems Review of Systems GI: Reports: see HPI, abdominal pain. Exam & Diagnostic Data Last 24 Hrs of Vital Signs/I&O Vital Signs Date Time Temp Pulse Resp B/P B/P Pulse O2 O2 Flow FiO2 Mean Ox Delivery Rate 06/04 05 98.4 65 20 140/83 100 Room Air 06/04 0144 97 Room Air 06/04 0140 62 18 163/85 100 Room Air Intake & Output 06/04 0800 06/04 0000 06/03 1600 Intake Total Output Total Balance Patient 175 lb Weight Weight Reported by Patient Measurement Method Physical Exam: General: alert and oriented times three Chest: clear anteriorly bilaterally, RRR Abd: soft, nondistended, tender to palpation - severe at umbilicus, moderately tender to palpation elsewhere with radiation to the midline, hypoactive bowel sounds Ext: warm, no edema Last 24 Hrs of Labs/Prosper: Laboratory Tests 06/04/17 0518: Urine Color YEL, Urine Clarity CLEAR, Urine pH 6.0, Ur Specific [place] 1.015, Urine Protein NEG, Urine Ketones TRACE H, Urine Nitrite NEG, Urine Bilirubin NEG, Urine Urobilinogen 0.2, Ur Leukocyte Esterase NEG, Ur Microscopic EXAM NOT REQUIRED, Urine Hemoglobin NEG, Urine Glucose 100 H 06/04/17 0235: Anion Gap 16, Estimated GFR > 60, BUN/Creatinine Ratio 28.0 H, Glucose 108 H, Lactic Acid 3.2 H, Calcium 8.5, Total Bilirubin 0.1 L, AST 16, ALT 16, Alkaline Phosphatase 59, Total Protein 6.5, Albumin 3.7, Globulin 2.8, Albumin/ Globulin Ratio 1.3, Amylase 48, Lipase 116, Total Beta HCG NEGATIVE 06/04/17 0151: CBC w Diff MAN DIFF ORDERED, RBC 4.64, MCV 92.4, MCH 31.4 H, MCHC 33.9, RDW 14.1, MPV 9.4, Gran % 63.4, Lymphocytes % 30.1, Monocytes % 4.5, Eosinophils % 1.0, Basophils % 1.0, Absolute Granulocytes 4.6, Segmented Neutrophils 54, Band Neutrophils 4, Absolute Lymphocytes 2.2, Lymphocytes 29, Monocytes 5, Absolute Monocytes 0.3, Eosinophils 5, Absolute Eosinophils 0.1, Basophils 3 H, Absolute Basophils 0.1, Platelet Estimate ADEQUATE, Normocytic RBCs VERIFIED, Normochromic RBCs VERIFIED Diagnostic Data Other Results CT Abd/pelvis: Patient is status post gastric bypass surgery. No specific evidence for bowel obstruction. The cecum has a different orientation compared to 07/24/2016 with the base of the cecum now directed towards the midline, suggesting a mobile cecum. There is prominent distention of the cecum and ascending colon with gradual decrease in colonic caliber extending to the splenic flecture; the remainder of the colon is mostly collapsed. There is colonic diverticulosis without convincing evidence for diverticulitis. The appendix is not well delineated. There is diffuse fat stranding throughout the mesentery in keeping with edema. A small volume of ascites is noted in the right abdomen. IMPRESSION: 1. Configuration of the cecum has changed since 07/24/2016, with the base of the cecum now directed towards the midline suggesting a mobile cecum. No convincing evidence for obstruction. There is prominent gaseous distention of the cecum and ascending colon with gradual decrease in caliber of the remainder of the colon. 2. Status post gastric bypass surgery. 3. Diffuse mesenteric edema and small volume ascites. 4. Colonic diverticulosis. Assessment/Plan Assessment/Plan: 46yo female with a history of lgp one year ago now with severe abdominal pain and an inconclusive CT Discussed with dr Kennedy He feels it is likely an internal hernia Wants to go to OR as soon as available chair installer to OR Discussed with patient As Ranked By This Provider Problem List: 1. Abdominal pain Marcia FRANCISSatya 06/04/17 1009: Attending MD Review Statement Attending Statement Attending MD Statement: examined this patient, discuss w/resident/PA/[employer]S ELECTRONIC WARFARE OFFICER, agreed w/resident/PA/[employer]S [employer] OFFICER, reviewed EMR data (avail), reviewed images Attending Assessment/Plan: Patient seen and examined, agree with above. Acute onset abdominal pain radiating to the back, +N/V. AVSS. Abd-soft. Labs ok, LA 3.2. CT scan - Mesenteric edema, +ascites, distended cecum that is more centrally positioned. Patient has gotten multiple doses of narcotics without effect, given persistent severe pain and CT showing above findings, I believe patient needs an urgent Dx laparoscopy to evaluate for an internal hernia given h/o LRYGB. D/W patient and ED staff.
[2017-06-04 06:24] LABS: PT 9.9 SEC (9.4-12.5); PTT 33 SEC (25-37)
--- NOTE | 2017-06-04 10:26 | Operative Report ---
Operative/Inv Procedure Report Surgery Date: 06/04/17 Name of Procedure: Laparoscopic reduction with subsequent repair of an internal hernia Pre-Operative Diagnosis: Abdominal pain, internal hernia Post-Operative Diagnosis: Same Estimated Blood Loss: less than 50ml Surgeon/Cable Assembler: Satya Bassett Anesthesia: general endotracheal tube IV Fluids: 700 cc Drains: None Specimens: None Complications: None Condition: Stable Operative Indication: This is a 38-year-old female that presented to the emergency room with acute onset of abdominal pain, the patient is status post lap scopic Roosevelt-en-Y gastric bypass 1 year ago. Patient's pain was not improved with multiple doses of pain medication. CT scan of abdomen and pelvis showed more was centrally located cecum with a lot of mesenteric edema and ascites. Given the above and her history of a gastric bypass, I believe emergent diagnostic laparoscopy was in order. All risks including but not limited to bleeding, infection, and injury to surrounding bowel were discussed in detail. The patient understood everything and decided to proceed. Operative/Procedure Note Note: The patient was brought to the operating room and placed on the table in supine position. Venodyne stockings were placed and adequate general endotracheal anesthesia was obtained. The patient was prepped and draped in standard surgical fashion. Began the procedure with a 2 cm transverse incision supraumbilically and slightly to left of the midline over the patient's prior port site. Then using a 12 mm clear Visiport and a 10 mm 0 laparoscope the abdominal cavity was accessed. Great care was taken to go through anterior rectus sheath, the posterior rectus sheath, and through the peritoneum. Once the peritoneum was entered the abdominal cavity was insufflated to 15 mmHg. Upon initial examination we noted a distended cecum and transverse colon, chylous ascites, and some hyperemia/dilatation of the small bowel. 5 mm ports are placed, one in left lower quadrant and one suprapubic. Began the procedure by running the small bowel from the terminal ileum proximally. Running small bowel towards the distal anastomosis did appear that the small bowel was unraveling with some areas that required some manipulation to fully reduce the small bowel. The jejunojejunostomy was reached and did appear that it had reduced/untwisted. At that point more 5 mm reports are placed, one in the right upper quadrant one in the right lateral position. Then we began running the small bowel proximally from the jejunojejunostomy. The Roosevelt limb was identified and run up to the gastrojejunostomy and did not appear twisted. The biliopancreatic limb was once again identified also and run to the ligament of Treitz. Upon examination of the jejunojejunostomy was noted that the defect was opened and there was hyperemia around the defect suggesting possible site of the hernia. At that point the jejunojejunostomy defect was closed using 2-0 Tycron suture in a running fashion. We then brought our attention to Chou's defect and the defect was closed using 2-0 silk suture. We examined both defects and appeared to be adequately closed. At that point the small bowel was run once again from the ligament of Treitz to the jejunojejunostomy and then proximally along each limb, no further twist or internal hernia was noted and the bowel did appear to be in appropriate position. The cecum and the transverse colon still appeared dilated however did appear that now the gas was moving further distally into the splenic flexure. At that point with no further pathology noted the ports were removed under direct visualization, no bleeding was noted. The skin was closed using 4-0 Monocryl. Steri-Strips and dressings were placed. The patient was successfully extubated and transferred to recovery room in stable condition. The patient tolerated procedure well with no complications. Findings: Internal hernia likely through the JJ defect, chylous ascites, distended cecum/ ascending colon CC: Regino SEAMAN,Alexis Matthews
[2017-06-04 14:26] VITALS: BP 162/74
--- NOTE | 2017-06-04 16:00 | PN- Bariatrics ---
Subjective Subjective: Patient seen postoperatively. She is feeling well. Her pain is much better controlled. She has no nausea vomiting. No flatus yet. She has been ambulatory to the bathroom but has not left the room. She is much more comfortable than preoperatively. Objective Vital Signs and I&Os Vital Signs Date Time Temp Pulse Resp B/P B/P Pulse O2 O2 Flow FiO2 Mean Ox Delivery Rate 06/04 1426 98.7 81 18 162/74 97 Room Air Room Air 06/04 0529 98.4 65 20 140/83 100 Room Air 06/04 0144 97 Room Air 06/04 0140 62 18 163/85 100 Room Air Intake & Output 06/04 1600 06/04 0800 06/04 0000 06/03 1600 06/03 0800 06/03 0000 Intake Total Output Total Balance Patient 175 lb 175 lb Weight Weight Reported by Patient Reported by Patient Measurement Method Physical Exam: Well-developed well-nourished no apparent distress. HEENT: Atraumatic, extraocular motion intact Neck: Supple, no lymphadenopathy Heart: Regular rate and rhythm no murmur Respiratory: No respiratory distress clear to auscultation bilateral Abdomen: Soft, tenderness throughout the mid abdominal region is mild to moderate. Mild distention. Positive bowel sounds. Dressings clean dry and intact No tympany, no peritoneal signs Extremities: No edema, no calf pain Neuro: Alert and oriented x3 Psych: Mood affect normal, normal memory normal judgment. Skin: Warm and dry, no rash on exposed skin Assessment/Plan Assessment/Plan Postop day #0 status post Laparoscopic reduction with subsequent repair of an internal hernia Surgically stable, improving. Advanced to clear liquid diet for dinner tonight Encourage ambulation Reglan as needed for nausea and for promotion of gut Motility Continue IV fluids Following a.m. labs Heparin subcutaneous for DVT prophylaxis Protonix IV for GI prophylaxis Serial abdominal exams. Core Measures Venous Thromboembolism VTE Risk Factors Age>40 No Mechanical VTE Prophylaxis d/t N/A MechProphylax Ordered No VTE Pharm Prophylaxis d/t NA PharmProphylax ordered
--- NOTE | 2017-06-04 16:03 | Admission Core Measures ---
Acute Coronary Syndrome (CM) ACS Core Measures Acute Coronary Syndrome Diagnosis No Congestive Heart Failure (NEW) CHF Core Measures Congestive Heart Failure Diagnosis No Cerebrovascular Accident (NEW) CVA Core Measures CVA/TIA Diagnosis No Venous Thromboembolism VTE Core Zoë (View Protocol) VTE Risk Factors Age>40 No Mechanical VTE Prophylaxis d/t N/A MechProphylax Ordered No VTE Pharm Prophylaxis d/t NA PharmProphylax ordered Problem List As ranked by this Provider includes Assessment & Plan 1. Abdominal pain 2. Gastric bypass status for obesity HOME MEDS Home Med List No Known Home Medications
[2017-06-04 18:26] VITALS: BP 133/76
[2017-06-04 21:14] VITALS: BP 135/71
[2017-06-04 23:48] VITALS: BP 124/53
[2017-06-05 03:54] VITALS: BP 143/75
--- NOTE | 2017-06-05 07:53 | PN- Bariatrics ---
See Addendum Subjective Subjective: Tolerating clears. She reports pain not much better after percocet, but she is willing to try this again today. Passing flatus and +bms after dulcolax. She denies nausea. Out of bed to bathroom. No dizziness. No shortness of breath. No chest pains. Objective Vital Signs and I&Os Vital Signs Date Time Temp Pulse Resp B/P B/P Pulse O2 O2 Flow FiO2 Mean Ox Delivery Rate 06/05 0354 98.0 64 20 143/75 97 Room Air 06/04 2348 98.3 72 20 124/53 95 Room Air 06/04 2114 98.7 72 18 135/71 96 06/04 1826 99.0 73 18 133/76 96 06/04 1426 98.7 81 18 162/74 97 Room Air Room Air Intake & Output 06/05 0800 06/05 0000 06/04 1600 06/04 0800 06/04 0000 06/03 1600 Intake Total 720 345 Output Total Balance 720 345 Intake, IV 600 225 Intake, Oral 120 120 Patient 178 lb 175 lb 175 lb Weight Weight Reported by Patient Reported by Patient Measurement Method Physical Exam: General - alert & oriented x 3. comfortable. no acute distress. Lungs - clear bilaterally. no w/r/r. Cardiac - s1s2. reg. Abdomen - soft. dressings c/d/i. expected surya-incisional tenderness. no drains. Extremities - warm bilaterally. no c/c/e. calves soft and nontender b/l. Current Medications: Current Medications Sig/Erik Start time Last Medication Dose Route Stop Time Status Admin Acetaminophen 650 MG Q6P PRN 06/04 1015 AC PO Bisacodyl 10 MG 1200 06/04 1200 DC 06/04 CO 06/04 1201 1631 Cefazolin Sodium 2 GM Q8H 06/05 0330 DC 06/05 N/A 1 UNIT IV 06/05 0359 0349 Cefazolin Sodium 2 GM IQ8 06/04 1600 DC 06/04 N/A 1 UNIT IV 06/05 0029 1936 Dextrose/Sodium 1,000 ML .[id number] 06/04 1015 DC 06/05 Chloride IV 0135 Heparin Sodium 5,000 UNIT Q8 06/04 1400 AC 06/05 (Porcine) SC 0558 Metoclopramide HCl 10 MG Q6P PRN 06/04 1015 AC IV Morphine Sulfate 4 MG Q2P PRN 06/04 1015 AC 06/05 IV 0349 Oxycodone/ 1 TAB Q4P PRN 06/04 1015 AC Acetaminophen PO Oxycodone/ 2 TAB Q4P PRN 06/04 1015 AC 06/04 Acetaminophen PO 1629 Pantoprazole Sodium 40 MG DAILY 06/04 1200 AC 06/04 IV 1631 Results Last 48 Hours of Labs: Laboratory Tests 06/05 06/04 06/04 0724 0603 0518 Chemistry Sodium Pending Potassium Pending Chloride Pending Carbon Dioxide Pending Anion Gap Pending BUN Pending Creatinine Pending BUN/Creatinine Ratio Pending Coagulation PT (9.4 - 12.5 SEC) 9.9 INR (0.90 - 1.19) 0.91 APTT (25 - 37 SEC) 33 Hematology CBC w Diff Pending WBC Pending RBC Pending Hgb Pending Hct Pending MCV Pending MCH Pending MCHC Pending RDW Pending Plt Count Pending MPV Pending Urines Urine Color (YEL,AMB,STR) YEL Urine Clarity (CLEAR) CLEAR Urine pH (5.0 - 8.0) 6.0 Ur Specific [place] (1.001 - 1.035) 1.015 Urine Protein (NEG,<30 MG/DL) NEG Urine Ketones (NEG) TRACE H Urine Nitrite (NEG) NEG Urine Bilirubin (NEG) NEG Urine Urobilinogen (0.1 - 1.0 EU/dl) 0.2 Ur Leukocyte Esterase (NEG) NEG Ur Microscopic EXAM NOT REQUIRED Urine Hemoglobin (NEG) NEG Urine Glucose (N MG/DL) 100 H 06/04 06/04 0235 0151 Chemistry Sodium (137 - 145 mmol/L) 146 H Potassium (3.5 - 5.1 mmol/L) 3.8 Chloride (98 - 107 mmol/L) 113 H Carbon Dioxide (22 - 30 mmol/L) 17 L Anion Gap (5 - 16) 16 BUN (7 - 17 mg/dL) 14 Creatinine (0.5 - 1.0 mg/dL) 0.5 Estimated GFR (>60 ml/min) > 60 BUN/Creatinine Ratio (7 - 25 %) 28.0 H Glucose (65 - 99 mg/dL) 108 H Lactic Acid (0.7 - 2.1 mmol/L) 3.2 H Calcium (8.4 - 10.2 mg/dL) 8.5 Total Bilirubin (0.2 - 1.3 mg/dL) 0.1 L AST (14 - 36 U/L) 16 ALT (9 - 52 U/L) 16 Alkaline Phosphatase (<127 U/L) 59 Total Protein (6.3 - 8.2 g/dL) 6.5 Albumin (3.5 - 5.0 g/dL) 3.7 Globulin (1.9 - 4.2 gm/dL) 2.8 Albumin/Globulin Ratio (1.1 - 2.2 %) 1.3 Amylase (30 - 110 U/L) 48 Lipase (23 - 300 U/L) 116 Total Beta HCG (NEGATIVE) NEGATIVE Coagulation PT Cancelled INR Cancelled APTT Cancelled Hematology CBC w Diff MAN DIFF ORDERED WBC (4.8 - 10.8 /CUMM) 7.3 RBC (4.20 - 5.40 /CUMM) 4.64 Hgb (12.0 - 16.0 G/DL) 14.6 Hct (37 - 47 %) 42.9 MCV (81.0 - 99.0 FL) 92.4 MCH (27.0 - 31.0 PG) 31.4 H MCHC (33.0 - 37.0 G/DL) 33.9 RDW (11.5 - 14.5 %) 14.1 Plt Count (130 - 400 /CUMM) 198 MPV (7.4 - 10.4 FL) 9.4 Gran % (42.2 - 75.2 %) 63.4 Lymphocytes % (20.5 - 51.1 %) 30.1 Monocytes % (1.7 - 9.3 %) 4.5 Eosinophils % (0 - 5 %) 1.0 Basophils % (0.0 - 2.0 %) 1.0 Absolute Granulocytes (1.4 - 6.5 /CUMM) 4.6 Segmented Neutrophils (42.2 - 75.2 %) 54 Band Neutrophils (0.0 - 5.0 %) 4 Absolute Lymphocytes (1.2 - 3.4 /CUMM) 2.2 Lymphocytes (20.5 - 51.1 %) 29 Monocytes (1.7 - 9.3 %) 5 Absolute Monocytes (0.10 - 0.60 /CUMM) 0.3 Eosinophils (0 - 5.0 %) 5 Absolute Eosinophils (0.0 - 0.7 /CUMM) 0.1 Basophils (0.0 - 2.0 %) 3 H Absolute Basophils (0.0 - 0.2 /CUMM) 0.1 Platelet Estimate (ADEQUATE) ADEQUATE Normocytic RBCs VERIFIED Normochromic RBCs VERIFIED Assessment/Plan Assessment/Plan This 46 year old female with hx gastric bypass, now POD#1 s/p laparoscopic reduction with subsequent repair of an internal hernia tolerating clears. d/c iv fluids. advance to fulls percocet / toradol prn pain control oob/ambulation encouraged hep sc - dvt ppx f/u labs d/c planning, possibly home later today if tolerating diet advancement and pain controlled will d/w Core Measures Venous Thromboembolism VTE Risk Factors Age>40 No Mechanical VTE Prophylaxis d/t N/A MechProphylax Ordered No VTE Pharm Prophylaxis d/t NA PharmProphylax ordered
--- NOTE | 2017-06-05 07:55 | Surg Short-stay <48hrs Dis Sum ---
Visit Information Visit Dates Admission Date: 06/04/17 Discharge Date: 06/05/17 Surgical Short Stay DC Summary Admission Diagnosis: Abdominal pain, internal hernia Final Diagnosis: same as above, s/p Laparoscopic reduction with subsequent repair of an internal hernia Procedure(s): Surgery Date: 06/04/17 Name of Procedure: Laparoscopic reduction with subsequent repair of an internal hernia Summary/Significant Findings: Presented 06/04/17 with abdominal pain and suspected internal hernia. Taken to the OR by on the same day for laparoscopic reduction with subsequent repair of an internal hernia. Started on clears post-op, with diet advancement as tolerated. Pain control transitioned from iv to oral medication. Discharged to home once tolerating diet advancement, and pain controlled with percocet. Condition at Discharge: stable Discharge Disposition: home or self care Discharge instructions provided to patient/family: Yes Post discharge follow-up plan: 2 weeks with Copies to: Regino SEAMAN,Alexis Matthews
[2017-06-05] MEDS ORDERED: PERCOCET 5-3251 EACH PO (08:03)
[2017-06-05] MEDS ORDERED: COLACE100 M1 PO (08:03)
--- NOTE | 2017-06-05 08:03 | Patient Discharge Instructions ---
Discharge Instructions General Discharge Information You were seen/treated for: internal hernia You had these procedures: Surgery Date: 06/04/17 Name of Procedure: Laparoscopic reduction with subsequent repair of an internal hernia Watch for these problems: fever>101.3, increased pain, redness/swellling/drainage, dizziness, shortness of breath, chest pain No bath, but you may shower: Yes Other wound care: ok to remove outer dressings. leave white steri strips in place. keep incisions clean & dry. Diet Continue normal diet: Yes Recommended Diet: Regular Activity Full Activity/No Limits: No Activity Self Limited: Yes Pounds, do NOT lift more than: 10 Other activity limits: no heavy lifting. no strenuous activity. Acute Coronary Syndrome Inclusion Criteria At DC or during hospital stay patient has or had the following: ACS DIAGNOSIS No Discharge Core Measures Meds if any: Prescribed or Continued at Discharge Meds if any: NOT Prescribed or Continued at Discharge Congestive Heart Failure Inclusion Criteria At DC or during hospital stay patient has or had the following: CHF DIAGNOSIS No Discharge Core Measures Meds if any: Prescribed or Continued at Discharge Meds if any: NOT Prescribed or Continued at Discharge Cerebrovascular accident Inclusion Criteria At DC or during hospital stay patient has or had the following: CVA/TIA Diagnosis No Discharge Core Measures Meds if any: Prescribed or Continued at Discharge Meds if any: NOT Prescribed or Continued at Discharge Venous thromboembolism Inclusion Criteria VTE Diagnosis No VTE Type NONE VTE Confirmed by (Test) NONE Discharge Core Measures - Per Current guidelines, there needs to be overlap - treatment for the first 5 days of Warfarin therapy. - If discharged on Warfarin prior to 5 days of - overlap therapy, the patient will need to be - assessed for post discharge needs including - *Post discharge parental anticoagulation - *Warfarin and/or parental anticoagulation education - *Follow up date to check INR post discharge At least 5 days overlap therapy as Inpatient No Meds if any: Prescribed or Continued at Discharge Note: Overlap Therapy is Warfarin and Anticoagulant Meds if any: NOT Prescribed or Continued at Discharge
== END 2017-06-05 13:15 | DRG 230 ==
LOC: ERH 01:36 → PACUH 10:25 → 2NB 10:25 → ENRESERV 12:40 → ENTRNSPT 13:50 → EDTRNSPTSTS 14:01 → EDTRNSPT 14:01 → CMPTRNSPT 14:14 → 2NB 14:14 → ENPENDDIS 06-05 09:48 → 2NB 06-05 13:15
PROVIDERS: Emergency Medicine
PROC: 0DQA4ZZ Repair Jejunum, Percutaneous Endoscopic Approach (ICD-10-PCS; principal; 2017-06-04)
DX: K45.8 Other specified abdominal hernia without obstruction or gangrene (principal); Z98.890 Other specified postprocedural states; Z98.84 Bariatric surgery status; Z90.49 Acquired absence of other specified parts of digestive tract; I10 Essential (primary) hypertension; M19.90 Unspecified osteoarthritis, unspecified site; E55.9 Vitamin D deficiency, unspecified
CPT/HCPCS: 2NBSP; 36592; 71045; 74177; 81003; 82436; 93005; 93010; 96361; 96374; 96375; 96376; 99291; J0690; J1644; J1885; J2405; J2550; J2765; J7042